=== PATIENT | male | born 1945 | race Caucasian/White ===

== ENCOUNTER → 2017-06-20 09:19 | Outpatient (CLI) | payer MEDICARE, SELFPAY ==
[2017-06-20 11:11] LABS: ALB/GLOB Ratio 0.9 RATIO (0.9-2.4); AST(SGOT) 24 U/L (15-37); Alanine Aminotransfer ALT/SGPT 40 U/L (16-61); Albumin, Serum 3.6 g/dL (3.2-5.0); Alkaline Phosphatase 112 U/L (45-117); Anion Gap 8 (5-15); BUN 28 mg/dL (7-18); BUN/Creat Ratio 20.3 RATIO (10-20); Calcium,Total 10.7 mg/dL (8.5-10.1); Chloride 103 mmol/L (98-107); Cholesterol 156 mg/dL (200); Creatinine, Serum 1.38 mg/dL (0.70-1.30); EST Glomerular Filtration Rate 54 mL/min (>60); Est Glom Filt Rate - Afr Amer 66 mL/min (>60); Glucose 99 mg/dL (74-106); High Density Lipoprotein 43 mg/dL; PSA,Total - Annual Screen 4.56 ng/mL (0.00-4.00); Potassium 3.9 mmol/L (3.5-5.1); Protein, Total 7.6 g/dL (6.4-8.2); Sodium Level 140 mmol/L (136-145); Triglycerides 172 mg/dL; Very Low Density Lipoprotein 34 mg/dL (5-40)
== END ==
PROVIDERS: Family Provider Family Medicine; PCP Family Medicine; Visit Provider Family Medicine
DX: E78.00 Pure hypercholesterolemia, unspecified (principal); F52.21 Male erectile disorder; Z12.5 Encounter for screening for malignant neoplasm of prostate
CPT/HCPCS: 36415; 80053; 80061; 84153; G0103

== ENCOUNTER → 2017-12-21 08:25 | Outpatient (CLI) | payer MEDICARE, SELFPAY ==
[2017-12-21 10:50] LABS: Hematocrit 46.9 % (40-54); Hemoglobin 16.2 g/dl (13.0-16.5); Mean Corp Hgb Conc 34.5 g/gl (32-36); Mean Corpuscular Volume 89.8 fL (80-94); Mean Platelet Vol. 9.8 fl (6.2-12.0); Platelet Count 172 K/mm3 (150-450); RBC Distribution Width SD 42.6 fl (35.1-43.9); Red Blood Count 5.22 M/mm3 (4.6-6.2); White Blood Count 5.6 K/mm3 (4.4-11.0)
[2017-12-21 10:52] LABS: Scan Indicated on CBC? Y/N NO
[2017-12-21 11:16] LABS: AST(SGOT) 24 U/L (15-37); Alanine Aminotransfer ALT/SGPT 41 U/L (16-61); Albumin, Serum 3.7 g/dL (3.2-5.0); Alkaline Phosphatase 92 U/L (45-117); Anion Gap 9 (5-15); BUN 23 mg/dL (7-18); Calcium,Total 10.8 mg/dL (8.5-10.1); Chloride 105 mmol/L (98-107); Cholesterol 152 mg/dL (200); Creatinine, Serum 1.44 mg/dL (0.70-1.30); EST Glomerular Filtration Rate 52 mL/min (>60); Est Glom Filt Rate - Afr Amer 62 mL/min (>60); Globulin 3.6 g/dL (2.2-4.2); Glucose 97 mg/dL (74-106); High Density Lipoprotein 41 mg/dL; PSA,Total- Diagnostic 3.22 ng/mL (0.0-4.0); Potassium 4.1 mmol/L (3.5-5.1); Protein, Total 7.3 g/dL (6.4-8.2); Sodium Level 141 mmol/L (136-145); Triglycerides 183 mg/dL; Very Low Density Lipoprotein 37 mg/dL (5-40)
== END ==
PROVIDERS: Family Provider Family Medicine; PCP Family Medicine; Visit Provider Family Medicine
DX: I10 Essential (primary) hypertension (principal); I86.1 Scrotal varices; E78.00 Pure hypercholesterolemia, unspecified; R97.20 Elevated prostate specific antigen [PSA]
CPT/HCPCS: 36415; 80053; 80061; 84153; 85027

== ENCOUNTER → 2018-06-24 | Outpatient (CLI) | payer MEDICARE, SELFPAY ==
[2018-06-24 10:34] LABS: AST(SGOT) 26 U/L (15-37); Alanine Aminotransfer ALT/SGPT 42 U/L (16-61); Albumin, Serum 3.7 g/dL (3.2-5.0); Alkaline Phosphatase 100 U/L (45-117); Anion Gap 7 (5-15); BUN 25 mg/dL (7-18); BUN/Creat Ratio 16.8 RATIO (10-20); Calcium,Total 10.1 mg/dL (8.5-10.1); Chloride 111 mmol/L (98-107); Cholesterol 149 mg/dL (200); Creatinine, Serum 1.49 mg/dL (0.70-1.30); EST Glomerular Filtration Rate 50 mL/min (>60); Est Glom Filt Rate - Afr Amer 60 mL/min (>60); Globulin 3.6 g/dL (2.2-4.2); Glucose 104 mg/dL (74-106); High Density Lipoprotein 40 mg/dL; PSA,Total - Annual Screen 2.83 ng/mL (0.00-4.00); Potassium 3.9 mmol/L (3.5-5.1); Protein, Total 7.3 g/dL (6.4-8.2); Sodium Level 144 mmol/L (136-145); Triglycerides 167 mg/dL; Very Low Density Lipoprotein 33 mg/dL (5-40)
== END | disposition home or self-care (01) ==
PROVIDERS: Family Provider Family Medicine; PCP Family Medicine; Visit Provider Family Medicine
DX: I10 Essential (primary) hypertension (principal); R97.20 Elevated prostate specific antigen [PSA]; E78.00 Pure hypercholesterolemia, unspecified
CPT/HCPCS: 36415; 80053; 80061; 84153; G0103

== ENCOUNTER → 2018-09-18 | Outpatient (CLI) | payer MEDICARE, SELFPAY ==
[2018-09-18 10:15] LABS: Cholesterol 201 mg/dL (200); High Density Lipoprotein 39 mg/dL; Triglycerides 178 mg/dL; Very Low Density Lipoprotein 36 mg/dL (5-40)
== END | disposition home or self-care (01) ==
LOC: MFPLAB 09:12
PROVIDERS: Family Provider Family Medicine; PCP Family Medicine; Referring Provider Family Medicine; Visit Provider Family Medicine
DX: E78.00 Pure hypercholesterolemia, unspecified (principal)
CPT/HCPCS: 36415; 80061

== ENCOUNTER → 2018-12-20 09:41 | Outpatient (CLI) | payer MEDICARE, SELFPAY ==
--- NOTE | 2018-12-20 09:46 | RAD_ITS ---
STUDY: X-RAY - RIGHT HAND, ATTENTION FIFTH FINGER REASON FOR EXAM: Male, 73 years old. INJURY WHILE WRESTLING LAST NIGHT, PAIN FIFTH DIGIT TECHNIQUE: 3 view(s) of the fifth finger were obtained. COMPARISON: None. FINDINGS: Normal metacarpal head. Normal metacarpophalangeal joint. Normal proximal phalanx. There is a longitudinal fracture along the palmar base of the middle phalanx without significant displacement, extending to the articular surface. Normal distal phalanx. There is mild degenerative arthrosis of the proximal interphalangeal joint. There is mild degenerative arthrosis of the distal interphalangeal joint. There is soft tissue swelling. RAD/Finger(s) Min 2 Views IMPRESSION: Hyperextension avulsion fracture of the fifth middle phalanx. No significant displacement. Electronically Signed: Flaco Bertrand MD (Brooks) at 16:02 EDT , Service support ,
== END ==
PROVIDERS: Family Provider Family Medicine; PCP Family Medicine; Referring Provider Family Medicine; Visit Provider Family Medicine
DX: S62.606A Fracture of unspecified phalanx of right little finger, initial encounter for closed fracture (principal)
CPT/HCPCS: 73140

== ENCOUNTER → 2018-12-24 09:37 | Outpatient (CLI) | payer MEDICARE, SELFPAY ==
[2018-12-24 09:39] LABS: Mucous, Urine 0 SEEN /hpf (<or=2+); Red Blood Cells-Urine 0 SEEN /hpf (0-5)
[2018-12-24 12:05] LABS: Color, Urine Yellow (Yellow); Glucose, Dipstick Normal (Normal); Ketone-Dipstick Negative (Negative); Leukocyte Esterase-Dipstick 25 /ul (Negative); Nitrite-Dipstick Negative (Negative); Occult Blood-Urine Negative /ul (Negative); Protein-Dipstick 15 mg/dl (Negative); Urine Bilirubin Dipstick Negative (Negative); Urine Clarity Sl. Cloudy (Clear); Urine Urobilinogen Normal (Normal)
[2018-12-24 12:15] LABS: Protein, Urine (Random) 19.2 mg/dL (<11.9); Protein:Creat Ratio 132 mg/g CRE (0-200)
[2018-12-24 12:21] LABS: Hematocrit 50.2 % (40-54); Hemoglobin 16.2 g/dL (13.0-16.5); Mean Corp Hgb Conc 32.3 g/dL (32-36); Mean Corpuscular Hgb 29.7 pg (27.0-32.0); Mean Corpuscular Volume 92.1 fL (80-94); Mean Platelet Vol. 9.5 fl (6.2-12.0); Platelet Count 172 K/mm3 (150-450); RBC Distribution Width SD 43.6 fl (35.1-43.9); Red Blood Count 5.45 M/mm3 (4.6-6.2); White Blood Count 6.4 K/mm3 (4.4-11.0)
[2018-12-24 12:23] LABS: Bacteria RARE /hpf (None Seen); Squamous Epithelial Cells - UA 0-5 SEEN /hpf (0-5); White Blood Cells 5-10 SEEN /hpf (0-5)
[2018-12-24 12:57] LABS: ALB/GLOB Ratio 0.9 RATIO (0.9-2.4); AST(SGOT) 23 U/L (15-37); Alanine Aminotransfer ALT/SGPT 43 U/L (16-61); Albumin, Serum 3.7 g/dL (3.2-5.0); Alkaline Phosphatase 110 U/L (45-117); Anion Gap 3 (5-15); BUN 27 mg/dL (7-18); BUN/Creat Ratio 17.8 RATIO (10-20); Calcium,Total 11.2 mg/dL (8.5-10.1); Chloride 109 mmol/L (98-107); Cholesterol 195 mg/dL (200); Creatinine, Serum 1.52 mg/dL (0.70-1.30); EST Glomerular Filtration Rate 48 mL/min (>60); Est Glom Filt Rate - Afr Amer 58 mL/min (>60); Globulin 3.9 g/dL (2.2-4.2); Glucose 103 mg/dL (74-106); High Density Lipoprotein 35 mg/dL; Potassium 4.2 mmol/L (3.5-5.1); Protein, Total 7.6 g/dL (6.4-8.2); Sodium Level 139 mmol/L (136-145); Thyroid Stim Hormone (TSH) 1.49 uIU/mL (0.358-3.74); Triglycerides 208 mg/dL; Very Low Density Lipoprotein 42 mg/dL (5-40)
[2018-12-24 13:12] LABS: PTHIN 328.3 pg/mL (18.4-80.1)
== END ==
PROVIDERS: Family Provider Family Medicine; PCP Family Medicine; Referring Provider Family Medicine; Visit Provider Family Medicine
DX: I12.9 Hypertensive chronic kidney disease with stage 1 through stage 4 chronic kidney disease, or unspecified chronic kidney disease (principal); N18.3 Chronic kidney disease, stage 3 (moderate); E78.00 Pure hypercholesterolemia, unspecified
CPT/HCPCS: 36415; 80053; 80061; 81001; 82570; 83970; 84156; 84443; 85027

== ENCOUNTER → 2018-12-26 10:20 | Outpatient (CLI) | payer MEDICARE, SELFPAY ==
[2018-12-26 12:45] LABS: Vitamin D,25 Hydroxy 17.6 ng/mL (29.95-100.01)
[2018-12-26 12:52] LABS: Hemoglobin A1c 5.3 % (4.2-6.3)
[2018-12-26 12:54] LABS: T4 Free Direct 1.12 ng/dL (0.76-1.46)
[2018-12-31 12:06] LABS: Uric Acid 8.9 mg/dL (3.5-7.2)
== END ==
PROVIDERS: Family Provider Family Medicine; PCP Family Medicine; Referring Provider Family Medicine; Visit Provider Family Medicine
DX: R73.09 Other abnormal glucose (principal); E83.52 Hypercalcemia; E04.1 Nontoxic single thyroid nodule
CPT/HCPCS: 36415; 82306; 82330; 83036; 84439; 84550

== ENCOUNTER → 2018-12-31 09:05 | Outpatient (CLI) | payer MEDICARE, SELFPAY ==
--- NOTE | 2018-12-31 09:10 | RAD_ITS ---
STUDY: X-RAY - LEFT FOOT CLINICAL: Male, 73 years old. Foot pain, redness, swelling TECHNIQUE: 3 view(s) of the foot. COMPARISON: None. FINDINGS: Normal talus, calcaneus, and tarsal bones. Normal visualized subtalar, talonavicular, calcaneocuboid, tarsal and tarsometatarsal articulations. Normal metatarsi. Normal metatarsophalangeal joint of the great toe. Normal tibial and fibular sesamoid bones. Normal interphalangeal joint of the great toe. Normal phalanges of the great toe. Normal second through fifth metatarsophalangeal joints. Normal interphalangeal joints and phalanges of the lesser toes. The soft tissue structures are unremarkable. RAD/Foot min 3 Views IMPRESSION: Normal x-ray examination of the foot. Electronically Signed: Shimon Taveras MD at 9:45 EDT Tel , Service support ,
--- NOTE | 2018-12-31 09:10 | RAD_ITS ---
STUDY: X-RAY - RIGHT HAND, ATTENTION FIFTH FINGER REASON FOR EXAM: Male, 73 years old. Injury 2 weeks ago. Continued finger pain. TECHNIQUE: 3 view(s) of the finger were obtained. COMPARISON: None. FINDINGS: Generalized osteopenia. Normal metacarpal head. Mild arthrosis of the MCP joint. Normal proximal phalanx. Normal middle phalanx. Normal distal phalanx. Mild arthrosis of DIP joints. RAD/Finger(s) Min 2 Views IMPRESSION: Osteopenia with osteoarthritic changes. No acute osseous abnormality. Electronically Signed: Gilles Frances MD at 16:53 EDT , Service support ,
== END ==
PROVIDERS: Family Provider Family Medicine; PCP Family Medicine; Referring Provider Family Medicine; Visit Provider Family Medicine
DX: S69.90XA Unspecified injury of unspecified wrist, hand and finger(s), initial encounter (principal); M79.672 Pain in left foot
CPT/HCPCS: 73140; 73630

== ENCOUNTER → 2019-01-07 14:00 | Outpatient (CLI) | payer MEDICARE, SELFPAY ==
--- NOTE | 2019-01-07 14:14 | US_ITS ---
STUDY: THYROID ULTRASOUND REASON FOR EXAM: Male, 73 years old. Nodule TECHNIQUE: Ultrasound evaluation of the thyroid was performed with real-time and static saenz-scale imaging. COMPARISON: None. FINDINGS: RIGHT LOBE: The right lobe of the thyroid gland measures 4.7 x 2.0 x 1.2 cm. There is a homogeneous echotexture. There is a complex cyst of the midpole measuring 1.0 x 0.9 x 0.7 cm. There is a solid mid pole hypoechoic nodule with minimal peripheral vascularity measuring 0.5 x 0.5 x 0.4 cm. Right thyroid lobe vascularity is within normal limits. LEFT LOBE: The left lobe of the thyroid gland measures 4.6 x 1.7 x 1.6 cm. There is a homogeneous echotexture. There is a solid slightly hypoechoic midpole nodule measuring 0.4 x 0.4 x 0.3 cm. There is a midpole cyst measuring 0.4 x 0.5 x 0.3 cm. There is a mid pole complex cyst measuring 1.0 x 0.8 x 0.4 cm. There is a mid pole colloid cyst measuring 0.4 x 0.4 x 0.3 cm. Left lower lobe vascularity is within normal limits. ISTHMUS: The isthmus measures 3 mm . The regional lymph nodes are normal. US/Thyroid IMPRESSION: Bilateral thyroidal cysts and nodules as detailed above. Follow-up thyroid ultrasound in one year is recommended to assess for stability. Electronically Signed: Ammon Hale MD at 23:24 EDT , Service support ,
== END ==
PROVIDERS: Family Provider Family Medicine; PCP Family Medicine; Referring Provider Family Medicine; Visit Provider Family Medicine
DX: E04.1 Nontoxic single thyroid nodule (principal)
CPT/HCPCS: 76536

== ENCOUNTER → 2019-01-14 | Outpatient (CLI) | payer MEDICARE, SELFPAY ==
--- NOTE | 2019-01-14 08:37 | NM_ITS ---
CLINICAL: 73-year-old male with reported history of clinical hyperparathyroidism. 99m Tc SESTAMIBI DUAL PHASE PARATHYROID SCINTIGRAPHY COMPARISON: Thyroid ultrasound report 01/07/2019 FINDINGS: Following the intravenous administration of 26.5 mCi of 99m Tc sestamibi, image acquisitions of the anterior neck at 20 minutes and 2.0 hours post radiopharmaceutical provision reveal: 1. Immediate static blood pool acquisitions demonstrate distribution of the radiopharmaceutical in the right-left thyroid colloid of a vaguely U-shaped thyroid gland. An additional focus of tracer uptake is noted in the region of the superior mediastinum to the left midline. 2. Delayed images depict persistent tracer concentration noted in the region of the left superior mediastinum with near complete washout of the radiopharmaceutical from the previously defined right-left thyroid beds. NM/Parathyroid Scan IMPRESSION: 1. The persistent increase in radiopharmaceutical concentration identified in the superior mediastinum to left midline, on initial and late projections likely represents visualization of a parathyroid adenoma. Electronically Signed: Shimon Myles DO at 22:41 EDT Tel , Service support ,
== END | disposition home or self-care (01) ==
LOC: NM 08:33
PROVIDERS: Family Provider Family Medicine; PCP Family Medicine; Referring Provider Family Medicine; Visit Provider Family Medicine
DX: E21.3 Hyperparathyroidism, unspecified (principal)
CPT/HCPCS: 78070; A9500

== ENCOUNTER 2019-02-05 10:51 | Outpatient (RCR) | payer MEDICARE, SELFPAY | END 2019-02-15 23:59 | LOC: NS 10:51 | PROVIDERS: Family Provider Family Medicine; PCP Family Medicine; Visit Provider Family Medicine | DX: Z71.3 Dietary counseling and surveillance (principal); N18.9 Chronic kidney disease, unspecified | CPT/HCPCS: 97802 ==

== ENCOUNTER → 2019-02-06 09:16 | Outpatient (CLI) | payer MEDICARE, SELFPAY ==
[2019-02-06 10:52] LABS: Anion Gap 8 (5-15); BUN 24 mg/dL (7-18); BUN/Creat Ratio 19.4 RATIO (10-20); Chloride 108 mmol/L (98-107); Creatinine, Serum 1.24 mg/dL (0.70-1.30); EST Glomerular Filtration Rate 61 mL/min (>60); Est Glom Filt Rate - Afr Amer 74 mL/min (>60); Glucose 81 mg/dL (74-106); Sodium Level 142 mmol/L (136-145)
== END ==
PROVIDERS: Family Provider Family Medicine; PCP Family Medicine; Referring Provider Family Medicine; Visit Provider Family Medicine
DX: I10 Essential (primary) hypertension (principal)
CPT/HCPCS: 36415; 80048

== ENCOUNTER → 2019-02-14 10:20 | Outpatient (CLI) | payer MEDICARE, SELFPAY ==
[2019-02-14 12:28] LABS: Anion Gap 6 (5-15); BUN 21 mg/dL (7-18); BUN/Creat Ratio 14.5 RATIO (10-20); Calcium,Total 10.8 mg/dL (8.5-10.1); Chloride 109 mmol/L (98-107); Creatinine, Serum 1.45 mg/dL (0.70-1.30); EST Glomerular Filtration Rate 51 mL/min (>60); Est Glom Filt Rate - Afr Amer 62 mL/min (>60); Glucose 103 mg/dL (74-106); Potassium 4.2 mmol/L (3.5-5.1); Sodium Level 140 mmol/L (136-145)
== END ==
PROVIDERS: Family Provider Family Medicine; PCP Family Medicine; Referring Provider Family Medicine; Visit Provider Family Medicine
DX: I10 Essential (primary) hypertension (principal)
CPT/HCPCS: 36415; 80048

== ENCOUNTER 2019-02-27 15:41 | Outpatient (RCR) | payer MEDICARE, SELFPAY | END 2019-03-18 23:59 | LOC: NS 15:41 | PROVIDERS: Family Provider Family Medicine; PCP Family Medicine; Visit Provider Family Medicine | DX: Z71.3 Dietary counseling and surveillance (principal); N18.3 Chronic kidney disease, stage 3 (moderate) | CPT/HCPCS: 97803 ==

== ENCOUNTER 2019-04-02 08:59 | Outpatient (RCR) | payer MEDICARE, SELFPAY | END 2019-04-02 23:59 | disposition home or self-care (01) | LOC: NS 08:59 | PROVIDERS: Family Provider Family Medicine; PCP Family Medicine; Visit Provider Family Medicine | DX: Z71.3 Dietary counseling and surveillance (principal); N18.3 Chronic kidney disease, stage 3 (moderate) | CPT/HCPCS: 97803 ==

== ENCOUNTER → 2019-05-09 11:52 | Outpatient (CLI) | payer MEDICARE, SELFPAY ==
[2019-05-09 14:50] LABS: PTHIN 370.1 pg/mL (18.4-80.1)
== END ==
PROVIDERS: PCP Family Medicine; Referring Provider Family Medicine; Visit Provider Family Medicine
DX: D35.1 Benign neoplasm of parathyroid gland (principal)
CPT/HCPCS: 36415; 83970

== ENCOUNTER → 2019-05-23 09:27 | Outpatient (CLI) | payer MEDICARE, SELFPAY ==
[2019-05-23 12:53] LABS: Anion Gap 8 (5-15); BUN 19 mg/dL (7-18); Calcium,Total 9.1 mg/dL (8.5-10.1); Chloride 106 mmol/L (98-107); Creatinine, Serum 1.58 mg/dL (0.70-1.30); EST Glomerular Filtration Rate 46 mL/min (>60); Est Glom Filt Rate - Afr Amer 56 mL/min (>60); Glucose 94 mg/dL (74-106); Potassium 3.5 mmol/L (3.5-5.1); Sodium Level 142 mmol/L (136-145)
== END ==
PROVIDERS: PCP Family Medicine; Referring Provider Family Medicine; Visit Provider Family Medicine
DX: N18.3 Chronic kidney disease, stage 3 (moderate) (principal)
CPT/HCPCS: 36415; 80048

== ENCOUNTER → 2019-05-23 10:10 | Outpatient (CLI) | payer MEDICARE, SELFPAY ==
--- NOTE | 2019-05-23 10:13 | VDLE_ITS ---
Reason For Study: EDEMA RIGHT LEFT GSV is normal. GSV is normal. CFV is compressible, spontaneous, phasic, CFV is compressible, spontaneous, phasic, competent and demonstrates normal competent, and demonstrates normal augmentation. augmentation. FV is compressible, spontaneous, phasic, FV is compressible, spontaneous, phasic, competent and demonstrates normal competent and demonstrates normal augmentation. augmentation. POP V is compressible, spontaneous, phasic, POP V is compressible, spontaneous, phasic, competent and demonstrates normal competent and demonstrates normal augmentation. augmentation. T/P Trunk is compressible. T/P Trunk is compressible. PTV is compressible. PTV is compressible. RT PerV is compressible. LT PerV is compressible. Procedure Exam performed in department. A preliminary report was called and/or faxed to DR MURILLO. Interpretation Summary Deep veins of the lower extremities are bilaterally patent and compressible segmentally. There is no evidence of deep vein thrombosis on either side. Valvular competence appears intact within the proximal deep venous systems bilaterally. The great saphenous veins appear bilaterally patent and compressible segmentally. Ordering Physician: Delgado Murillo Referring Physician: Delgado Murillo Performed By: Angélica Lau, NII, RVT
== END ==
PROVIDERS: PCP Family Medicine; Referring Provider Family Medicine; Visit Provider Family Medicine
DX: R60.0 Localized edema (principal)
CPT/HCPCS: 93970

== ENCOUNTER 2019-05-27 10:04 | Inpatient (IN) | payer MEDICARE, SELFPAY ==
[2019-05-27 09:56] VITALS: BP 130/75; PULSE 89; RESP 18; TEMP 37.5; O2SAT 98
[2019-05-27 10:06] VITALS: BMI 27.3
[2019-05-27 10:07] VITALS: BMI 37.4
--- NOTE | 2019-05-27 10:08 | CT_ITS ---
STUDY: CT ABDOMEN AND PELVIS WITHOUT CONTRAST REASON FOR EXAM: Male, 73 years old. HEMATURIA RADIATION DOSAGE (If Supplied By Facility): CTDIvol = ( 10.99 ) mGy, DLP = ( 604.01 ) mGycm TECHNIQUE: Transaxial images were obtained from the dome of the diaphragm to the symphysis pubis without oral contrast, and without intravenous contrast. Sagittal and coronal images were reconstructed. Individualized dose optimization techniques were used for this CT. COMPARISON: None. FINDINGS: Lung bases are clear. Heart size is normal. The liver is unremarkable. The gallbladder is moderately distended with a solitary stone. Common duct is not dilated. The spleen and pancreas are unremarkable. The adrenal glands are normal. Low-attenuation lesions in the kidneys measure up to 3.9 cm in diameter. These are not characterized without contrast. Small parenchymal calcification in the left kidney may represent a peripherally calcified cyst. No stones in the collecting system. No hydronephrosis. Ureters are normal in course and caliber. No ureteral stones. The aorta is normal in caliber. There is no free fluid, free air, or organized collection. No bowel obstruction or inflammatory change. Diverticulosis. No acute diverticulitis. There has been prior sigmoid colon anastomosis. Prostate gland measures 5.4 x 5.8 x 5.3 cm. There is mild inflammatory stranding surrounding the bladder and prostate gland. Urinary bladder is moderately distended and otherwise unremarkable. Normal abdominal wall. Normal osseous structures. CT/Abdomen/Pelvis without Cont IMPRESSION: 1. Inflammatory stranding surrounding the bladder and prostate gland. Consider cystitis/prostatitis. 2. No hydronephrosis or obstructive uropathy. 3. Cholelithiasis. 4. Renal hypodensities, not characterized without contrast. 5. Prostatic enlargement. Electronically Signed: Fiona Lomas MD at 16:46 EDT Tel , Service support ,
--- NOTE | 2019-05-27 10:22 | PCM.HP.STD ---
History of Present Illness The patient is a 73 year old M [] Past Medical History Smoking Status: Never smoker - Physical Exam Vitals/I&O's: Vital Signs Temp Pulse Resp BP Pulse Ox 99.5 F H 89 18 130/75 H 98 05/27/19 09:56 05/27/19 09:56 05/27/19 09:56 05/27/19 09:56 05/27/19 09:56 Oxygen Delivery Method Room Air Weight: 190 lb 14.725 oz Body Mass Index (BMI) 27.3 Current Medications Sodium Chloride () 10 - 40 ml IV UD PRN PRN Reason: SALINE FLUSH
--- NOTE | 2019-05-27 10:23 | PN_ITS ---
Subjective: Patient is a 73-year-old male with past medical history which includes hypertension. Patient was admitted from his urologists office on 05/27/2019 due to suspicion for UTI. Patient had parathyroid surgery at outside hospital about a week ago and states that since postop course was complicated by urinary retention. He was therefore discharged home with a Davila catheter in place. He went to see Dr. Blevins 1 day prior to admission and Davila catheter was removed. Patient states he noted that he was having difficulty with urination as well as passing some bloody urine the day before presentation so he went to see his urologist on the day of presentation. On arrival in his urologist office, he was found to be febrile and so was admitted due to suspicion for UTI and possible sepsis. He was therefore directly admitted to the hospital. He admitted to fever and chills but denied any nausea vomiting, cough or shortness of breath, chest pain, abdominal pain, diarrhea vomiting. Review of symptoms otherwise negative. He also denied any flank pain. On admission, toes were significant for temperature of 99.5 Fahrenheit with blood pressure of 130/75 and pulse rate of 89 as well as respiratory rate of 18. Chemistry showed creatinine of 1.41 and CBC showed WBC of 13.4. Hospitalist service was consulted to help with medical management. Vitals/I&O's: Vital Signs Temp Pulse Resp BP Pulse Ox 99.5 F H 89 18 130/75 H 98 05/27/19 09:56 05/27/19 09:56 05/27/19 09:56 05/27/19 09:56 05/27/19 09:56 Oxygen Delivery Method Room Air Weight: 190 lb 14.725 oz Body Mass Index (BMI) 27.3 General: Alert, Oriented x3, Cooperative, No apparent distress HEENT: Atraumatic, PERRLA, EOMI, Normocephalic Oral: Dry Mucosa Neck: Supple, No JVD, Negative Carotid Bruits Lungs: Clear to auscultation, Normal air movement, No rhonchi, No wheeze, No rales Cardiovascular: Regular rate, Regular Rhythm, Normal S1, Normal S2, No murmurs Abdomen: Bowel Sounds Present, Soft, Non Tender, Non-Distended, No Hepato- splenomegaly Extremities: No clubbing, No cyanosis, No edema, Capillary Refill Less than 3 Seconds Skin: No rashes, No breakdown Musculoskeletal: No Tenderness to Palpation of Joints or Extremities Lymphatic: No Cervical, Supraclavicular, or Inguinal Adenopathy Neurological: Cranial nerves II-XII grossly intact, Neuro grossly intact, Motor Exam 5/5 strength throughout Psych/Mental Status: Normal Affect, Appropriate, Alert and oriented to time, place, person, mood and affect Laboratory Tests 05/27/19 05/27/19 05/27/19 Range/Units 11:50 10:35 10:35 WBC (4.4-11.0) K/mm3 RBC (4.6-6.2) M/mm3 Hgb (13.0-16.5) g/dL Hct (40-54) % MCV (80-94) fL MCH (27.0-32.0) pg MCHC (32-36) g/dL RDW Std Deviation (35.1-43.9) fl RDW Coeff of Kavya (11.6-14.6) % Plt Count (150-450) K/mm3 MPV (6.2-12.0) fl Immature Gran % (Auto) (0.0-0.9) % Neut % (Auto) (47-70) % Lymph % (Auto) (19-41) % [place] % (Auto) (0-10) % Eos % (Auto) (0-5) % Baso % (Auto) (0-1) % Absolute Neuts (auto) (2.0-7.7) X10^3/uL Absolute Lymphs (auto) (0.83-4.51) X10^3/uL Nucleated RBC % (0-5) % Differential Comment Sodium 141 (136-145) mmol/L Potassium 4.0 (3.5-5.1) mmol/L Chloride 109 H (98-107) mmol/L Carbon Dioxide 27.0 (21.0-32.0) mmol/L Anion Gap 5 (5-15) BUN 18 (7-18) mg/dL Creatinine 1.41 H (0.70-1.30) mg/dL Estim Creat Clear Calc 49.62 ml/min Est GFR (MDRD) Af Amer 64 (>60) mL/min Est GFR (MDRD) Non-Af 53 L (>60) mL/min BUN/Creatinine Ratio 12.8 (10-20) RATIO Glucose 98 (74-106) mg/dL Lactic Acid 1.1 (0.4-1.9) mmol/L Calcium 8.5 (8.5-10.1) mg/dL Total Bilirubin 0.70 (0.20-1.00) mg/dL AST 15 (15-37) U/L ALT 17 (16-61) U/L Alkaline Phosphatase 122 H (45-117) U/L Total Protein 7.1 (6.4-8.2) g/dL Albumin 3.4 (3.2-5.0) g/dL Globulin 3.7 (2.2-4.2) g/dL Albumin/Globulin Ratio 0.9 (0.9-2.4) RATIO Urine Color Yellow (Yellow) Urine Clarity Clear (Clear) Urine pH 8.0 (5.0 - 8.0) Ur Specific [place] 1.015 (1.002-1.030) Urine Protein 30 H (Negative) mg/dl Urine Glucose (UA) Normal (Normal) mg/dl Urine Ketones Negative (Negative) mg/dl Urine Occult Blood 250 H (Negative) /ul Urine Nitrite Negative (Negative) Urine Bilirubin Negative (Negative) mg/dL Urine Urobilinogen Normal (Normal) mg/dl Ur Leukocyte Esterase 500 H (Negative) /ul Urine RBC 10-25 SEEN (0-5) /hpf Urine WBC 5-10 SEEN (0-5) /hpf Ur Squamous Epith Cells 0-5 SEEN (0-5) /hpf Urine Bacteria RARE (None Seen) /hpf Urine Mucus 0 SEEN (<or=2+) /hpf 05/27/19 Range/Units 10:35 WBC 13.4 H (4.4-11.0) K/mm3 RBC 4.60 (4.6-6.2) M/mm3 Hgb 13.9 (13.0-16.5) g/dL Hct 41.5 (40-54) % MCV 90.2 (80-94) fL MCH 30.2 (27.0-32.0) pg MCHC 33.5 (32-36) g/dL RDW Std Deviation 42.1 (35.1-43.9) fl RDW Coeff of Kavya 12.8 (11.6-14.6) % Plt Count 153 (150-450) K/mm3 MPV 9.3 (6.2-12.0) fl Immature Gran % (Auto) 1.200 H (0.0-0.9) % Neut % (Auto) 86.5 H (47-70) % Lymph % (Auto) 4.1 L (19-41) % [place] % (Auto) 7.5 (0-10) % Eos % (Auto) 0.4 (0-5) % Baso % (Auto) 0.3 (0-1) % Absolute Neuts (auto) 11.6 H (2.0-7.7) X10^3/uL Absolute Lymphs (auto) 0.55 L (0.83-4.51) X10^3/uL Nucleated RBC % 0 (0-5) % Differential Comment SCANNED Sodium (136-145) mmol/L Potassium (3.5-5.1) mmol/L Chloride (98-107) mmol/L Carbon Dioxide (21.0-32.0) mmol/L Anion Gap (5-15) BUN (7-18) mg/dL Creatinine (0.70-1.30) mg/dL Estim Creat Clear Calc ml/min Est GFR (MDRD) Af Amer (>60) mL/min Est GFR (MDRD) Non-Af (>60) mL/min BUN/Creatinine Ratio (10-20) RATIO Glucose (74-106) mg/dL Lactic Acid (0.4-1.9) mmol/L Calcium (8.5-10.1) mg/dL Total Bilirubin (0.20-1.00) mg/dL AST (15-37) U/L ALT (16-61) U/L Alkaline Phosphatase (45-117) U/L Total Protein (6.4-8.2) g/dL Albumin (3.2-5.0) g/dL Globulin (2.2-4.2) g/dL Albumin/Globulin Ratio (0.9-2.4) RATIO Urine Color (Yellow) Urine Clarity (Clear) Urine pH (5.0 - 8.0) Ur Specific [place] (1.002-1.030) Urine Protein (Negative) mg/dl Urine Glucose (UA) (Normal) mg/dl Urine Ketones (Negative) mg/dl Urine Occult Blood (Negative) /ul Urine Nitrite (Negative) Urine Bilirubin (Negative) mg/dL Urine Urobilinogen (Normal) mg/dl Ur Leukocyte Esterase (Negative) /ul Urine RBC (0-5) /hpf Urine WBC (0-5) /hpf Ur Squamous Epith Cells (0-5) /hpf Urine Bacteria (None Seen) /hpf Urine Mucus (<or=2+) /hpf Current Medications Sodium Chloride () 10 - 40 ml IV UD PRN PRN Reason: SALINE FLUSH STROKE Vital Signs/Narrative: Vital Signs Temp Pulse Resp BP Pulse Ox 05/27/19 09:56 99.5 F H 89 18 130/75 H 98 Medical Necessity - Tobacco Use Smoking Status: Never smoker Assessment/Plan 73 y/o admitted with a complaitn of fever and chills. 1. Sepsis due to UTI * WBC is elevated at 13.4. Patient's temperature was initially high but trended up to 100.3 Fahrenheit with respiratory rate of 22. Lactic acid is only 1.9. SIRS criteria is therefore 2/4-tachypnea and leukocytosis. * Patient admitted to [facility] by his primary team. * Started on IV ceftriaxone. * Blood cultures and urine cultures obtained. * Treated with IV fluid normal saline at 150 cc/h. * CT abdomen and pelvis done: Reading pending. * 2. CKD stage III: * Creatinine is 1.41. * No baseline in system but patient states that he does have a history of CKD stage III. * Will hydrate gently with IV fluids and trend creatinine. 3. Hypertension: On amlodipine. 4. GERD: On pantoprazole DVT prophylaxis: SCDs CODE STATUS: Full code * Patient counseled extensively about different types of CODE STATUS including full code, DNR CCA and DNR CCA. * Patient elects to be full code. * Total [id number] time 17 minutes. * Thank you for the courtesy of the consults. We will continue to follow with you. Inpatient E&M: 14883 [facility] Hosp L3
[2019-05-27 10:56] LABS: Absolute Lymphocyte Count 0.55 X10^3/uL (0.83-4.51); Absolute Neutrophil Count 11.6 X10^3/uL (2.0-7.7); Basophil# 0.04 X10^3/uL; Basophil% 0.3 % (0-1); Eosinophil# 0.05 X10^3/uL; Eosinophils% 0.4 % (0-5); Hematocrit 41.5 % (40-54); Hemoglobin 13.9 g/dL (13.0-16.5); Lymphocyte # 0.55 X10^3/ul (4.0); Lymphocyte % 4.1 % (19-41); Mean Corp Hgb Conc 33.5 g/dL (32-36); Mean Corpuscular Hgb 30.2 pg (27.0-32.0); Mean Corpuscular Volume 90.2 fL (80-94); Mean Platelet Vol. 9.3 fl (6.2-12.0); Monocyte# 1.01 X10^3/uL; Monocyte% 7.5 % (0-10); NRBC Flagged by Analyzer 0 % (0-5); Neutrophil # 11.57 X10^3/uL (2.7-7.7); Neutrophil % 86.5 % (47-70); POSITIVE DIFFERENTIAL YES; Platelet Count 153 K/mm3 (150-450); RBC Distribution Width CV 12.8 % (11.6-14.6); RBC Distribution Width SD 42.1 fl (35.1-43.9); White Blood Count 13.4 K/mm3 (4.4-11.0)
[2019-05-27 11:00] LABS: Differential Indicated SCAN CRITERIA MET
[2019-05-27 11:16] LABS: Differential Comment SCANNED
[2019-05-27 11:23] LABS: ALB/GLOB Ratio 0.9 RATIO (0.9-2.4); AST(SGOT) 15 U/L (15-37); Alanine Aminotransfer ALT/SGPT 17 U/L (16-61); Albumin, Serum 3.4 g/dL (3.2-5.0); Alkaline Phosphatase 122 U/L (45-117); Anion Gap 5 (5-15); BUN 18 mg/dL (7-18); BUN/Creat Ratio 12.8 RATIO (10-20); Calcium,Total 8.5 mg/dL (8.5-10.1); Chloride 109 mmol/L (98-107); Creatinine, Serum 1.41 mg/dL (0.70-1.30); EST Glomerular Filtration Rate 53 mL/min (>60); Est Glom Filt Rate - Afr Amer 64 mL/min (>60); Estimated Creatinine Clearance 49.62 ml/min; Globulin 3.7 g/dL (2.2-4.2); Glucose 98 mg/dL (74-106); Protein, Total 7.1 g/dL (6.4-8.2); Sodium Level 141 mmol/L (136-145)
[2019-05-27 11:24] LABS: Lactic Acid 1.1 mmol/L (0.4-1.9)
[2019-05-27] MEDS: 0.9% Normal Saline 1,000 ML 125 ML IV ×2 (11:35→20:19)
[2019-05-27] MEDS: Ceftriaxone 1 GM/50 mL Premix Q24 IV ×2 (11:35→22:04)
[2019-05-27 12:00] LABS: Mucous, Urine 0 SEEN /hpf (<or=2+)
[2019-05-27 12:35] LABS: Color, Urine Yellow (Yellow); Glucose, Dipstick Normal (Normal); Ketone-Dipstick Negative (Negative); Leukocyte Esterase-Dipstick 500 /ul (Negative); Nitrite-Dipstick Negative (Negative); Occult Blood-Urine 250 /ul (Negative); Protein-Dipstick 30 mg/dl (Negative); Specific Gravity, Urine 1.015 (1.002-1.030); Urine Bilirubin Dipstick Negative (Negative); Urine Clarity Clear (Clear); Urine Urobilinogen Normal (Normal)
[2019-05-27 12:44] LABS: Bacteria RARE /hpf (None Seen); Red Blood Cells-Urine 10-25 SEEN /hpf (0-5); Squamous Epithelial Cells - UA 0-5 SEEN /hpf (0-5); White Blood Cells 5-10 SEEN /hpf (0-5)
[2019-05-27 13:01] VITALS: BP 118/61; PULSE 89; RESP 22; TEMP 37.9; O2SAT 93
[2019-05-27 15:21] VITALS: BP 125/72; PULSE 83; RESP 20; TEMP 37.6; O2SAT 96
[2019-05-27 20:32] VITALS: BP 134/73; PULSE 82; RESP 18; TEMP 37.5; O2SAT 95
[2019-05-27] MEDS: Tamsulosin HCl 0.4 MG Capsule PO (22:04)
[2019-05-28 02:32] VITALS: BP 119/58; PULSE 93; RESP 18; TEMP 36.8; O2SAT 93
[2019-05-28] MEDS: 0.9% Normal Saline 1,000 ML 150 ML IV ×3 (02:38→16:52)
[2019-05-28 07:59] LABS: Absolute Lymphocyte Count 1.24 X10^3/uL (0.83-4.51); Absolute Neutrophil Count 10.5 X10^3/uL (2.0-7.7); Basophil# 0.02 X10^3/uL; Basophil% 0.2 % (0-1); Eosinophil# 0.04 X10^3/uL; Eosinophils% 0.3 % (0-5); Hematocrit 37.1 % (40-54); Hemoglobin 12.5 g/dL (13.0-16.5); Lymphocyte # 1.24 X10^3/ul (4.0); Lymphocyte % 9.4 % (19-41); Mean Corp Hgb Conc 33.7 g/dL (32-36); Mean Platelet Vol. 9.2 fl (6.2-12.0); Monocyte# 1.33 X10^3/uL; Monocyte% 10.1 % (0-10); NRBC Flagged by Analyzer 0 % (0-5); Neutrophil # 10.47 X10^3/uL (2.7-7.7); Neutrophil % 79.3 % (47-70); Platelet Count 133 K/mm3 (150-450); RBC Distribution Width CV 12.9 % (11.6-14.6); RBC Distribution Width SD 42.4 fl (35.1-43.9); Red Blood Count 4.17 M/mm3 (4.6-6.2); White Blood Count 13.2 K/mm3 (4.4-11.0)
[2019-05-28 08:05] LABS: Anion Gap 4 (5-15); BUN 14 mg/dL (7-18); BUN/Creat Ratio 11.8 RATIO (10-20); Calcium,Total 7.6 mg/dL (8.5-10.1); Chloride 111 mmol/L (98-107); Creatinine, Serum 1.19 mg/dL (0.70-1.30); EST Glomerular Filtration Rate 64 mL/min (>60); Est Glom Filt Rate - Afr Amer 77 mL/min (>60); Estimated Creatinine Clearance 58.79 ml/min; Glucose 96 mg/dL (74-106); Potassium 4.1 mmol/L (3.5-5.1); Sodium Level 141 mmol/L (136-145)
[2019-05-28 09:40] VITALS: BP 133/71; PULSE 86; RESP 16; TEMP 36.6; O2SAT 97
[2019-05-28] MEDS: Ceftriaxone 1 GM/50 mL Premix Q24 IV ×2 (09:56→22:04)
[2019-05-28 09:57] VITALS: PULSE 86
[2019-05-28] MEDS: Pantoprazole Sodium 20 MG Tablet PO (09:57)
[2019-05-28] MEDS: amLODIPine 10 MG Tablet PO (09:57)
[2019-05-28] MEDS: Metoprolol(XL)Succ 100 MG Tablet PO (09:57)
--- NOTE | 2019-05-28 11:09 | PCM.PN.HOSP ---
Subjective: Patient seen and examined. He feels much better today. He has no fever no chills, no nausea vomiting, no chest pain or shortness of breath, no diarrhea vomiting. He has not noticed any more blood in his urine. Review of systems otherwise negative. Temperature is down to 97.9. Only down to 13.2 from 13.4 on admission. Creatinine is down to 1.19. Vitals/I&O's: Vital Signs Temp Pulse Resp BP Pulse Ox 97.9 F 86 16 133/71 H 97 05/28/19 09:40 05/28/19 09:57 05/28/19 09:40 05/28/19 09:40 05/28/19 09:40 Oxygen Delivery Method Room Air Weight: 190 lb 14.725 oz Body Mass Index (BMI) 27.3 Intake and Output for Last 24 Hours 05/26/19 05/27/19 05/28/19 23:59 23:59 23:59 Intake Total 2140.42 / 2140.42 2600 / 2600 Output Total 550 / 550 400 / 400 Balance 1590.42 / 1590.42 2200 / 2200 General: Alert, Oriented x3, Cooperative, No apparent distress HEENT: Atraumatic, PERRLA, EOMI, Normocephalic Oral: Dry Mucosa Neck: Supple, No JVD, Negative Carotid Bruits Lungs: Clear to auscultation, Normal air movement, No rhonchi, No wheeze, No rales Cardiovascular: Regular rate, Regular Rhythm, Normal S1, Normal S2, No murmurs Abdomen: Bowel Sounds Present, Soft, Non Tender, Non-Distended, No Hepato-splenomegaly Extremities: No clubbing, No cyanosis, No edema, Capillary Refill Less than 3 Seconds Skin: No rashes, No breakdown Musculoskeletal: No Tenderness to Palpation of Joints or Extremities Lymphatic: No Cervical, Supraclavicular, or Inguinal Adenopathy Neurological: Cranial nerves II-XII grossly intact, Neuro grossly intact, Motor Exam 5/5 strength throughout Psych/Mental Status: Normal Affect, Appropriate, Alert and oriented to time, place, person, mood and affect Laboratory Results 05/27/19 10:35: Differential Comment SCANNED 05/27/19 10:35: Sodium 141, Potassium 4.0, Chloride 109 H, Carbon Dioxide 27.0, Anion Gap 5, BUN 18, Creatinine 1.41 H, Estim Creat Clear Calc 49.62, Est GFR (MDRD) Af Amer 64, Est GFR (MDRD) Non-Af 53 L, BUN/Creatinine Ratio 12.8, Glucose 98, Calcium 8.5, Total Bilirubin 0.70, AST 15, ALT 17, Alkaline Phosphatase 122 H, Total Protein 7.1, Albumin 3.4, Globulin 3.7, Albumin/Globulin Ratio 0.9 05/27/19 10:35: Lactic Acid 1.1 05/27/19 11:50: Urine Color Yellow, Urine Clarity Clear, Urine pH 8.0, Ur Specific [place] 1.015, Urine Protein 30 H, Urine Glucose (UA) Normal, Urine Ketones Negative, Urine Occult Blood 250 H, Urine Nitrite Negative, Urine Bilirubin Negative, Urine Urobilinogen Normal, Ur Leukocyte Esterase 500 H, Urine RBC 10-25 SEEN, Urine WBC 5-10 SEEN, Ur Squamous Epith Cells 0-5 SEEN, Urine Bacteria RARE, Urine Mucus 0 SEEN 05/28/19 07:40: WBC 13.2 H, RBC 4.17 L, Hgb 12.5 L, Hct 37.1 L, MCV 89.0, MCH 30.0, MCHC 33.7, RDW Std Deviation 42.4, RDW Coeff of Kavya 12.9, Plt Count 133 L, MPV 9.2, Immature Gran % (Auto) 0.700, Neut % (Auto) 79.3 H, Lymph % (Auto) 9.4 L, [place] % (Auto) 10.1 H, Eos % (Auto) 0.3, Baso % (Auto) 0.2, Absolute Neuts (auto) 10.5 H, Absolute Lymphs (auto) 1.24, Nucleated RBC % 0 05/28/19 07:40: Sodium 141, Potassium 4.1, Chloride 111 H, Carbon Dioxide 26.0, Anion Gap 4 L, BUN 14, Creatinine 1.19, Estim Creat Clear Calc 58.79, Est GFR (MDRD) Af Amer 77, Est GFR (MDRD) Non-Af 64, BUN/Creatinine Ratio 11.8, Glucose 96, Calcium 7.6 L Diagnostic Data Abdomen/Pelvis CT 05/27/19 10:08 IMPRESSION: 1. Inflammatory stranding surrounding the bladder and prostate gland. Consider cystitis/prostatitis. 2. No hydronephrosis or obstructive uropathy. 3. Cholelithiasis. 4. Renal hypodensities, not characterized without contrast. 5. Prostatic enlargement. Electronically Signed: Fiona Lomas MD at 16:46 EDT Tel , Service support , Current Medications Amlodipine Besylate (Norvasc) 10 mg PO DAILY [facility] Last Admin: 05/28/19 09:57 Dose: 10 mg Documented by: Ceftriaxone Sodium (Rocephin) 1 gm in 50 mls @ 100 mls/hr IV Q12 [facility] Last Admin: 05/28/19 09:56 Dose: 100 mls/hr Documented by: Sodium Chloride () 1,000 mls @ 150 mls/hr IV .Q6H40M [facility] Last Infusion: 05/28/19 09:57 Dose: 0 mls/hr Documented by: Metoprolol Succinate (Toprol Xl (Beta Mara)) 100 mg PO DAILY [facility] Last Admin: 05/28/19 09:57 Dose: 100 mg Documented by: Pantoprazole Sodium (Protonix) 20 mg PO DAILY [facility] Last Admin: 05/28/19 09:57 Dose: 20 mg Documented by: Sodium Chloride () 10 - 40 ml IV UD PRN PRN Reason: SALINE FLUSH Tamsulosin HCl (Flomax) 0.4 mg PO QHS [facility] Last Admin: 05/27/19 22:04 Dose: 0.4 mg Documented by: STROKE Vital Signs/Narrative: Vital Signs Temp Pulse Resp BP Pulse Ox 05/28/19 09:57 86 05/28/19 09:40 97.9 F 86 16 133/71 H 97 Medical Necessity - Tobacco Use Smoking Status: Never smoker Assessment/Plan 73 y/o admitted with a complaitn of fever and chills. 1. Sepsis due to UTI wbc is down to 13.2 today. on IV ceftriaxone. Fever has settled blood and urine cultures pending CT abdomen and pelvis: inflammatory stranding surrounding bladder and prostate, with no hydronephrosis or obstructive uropathy. continue IV antibiotics 2. RAFAELA creatinine is down to 1.19 from 1.41 on admission. This leads me to think that this was more of an RAFAELA picture, not CKD as patient states he had. Will continue to monitor. 3. Hypertension: On amlodipine. 4. GERD: On pantoprazole DVT prophylaxis: SCDs CODE STATUS: Full code Thank you for the courtesy of the consult. We will continue to follow with you. Inpatient E&M: [id number] Subs Hosp L2
--- NOTE | 2019-05-28 14:01 | CASEMGMT ---
RN CM Assessment Note Presentation: Sepsis due to UTI. Intro role of CM and purpose of RN CM assessment. Demographics, PCP and Pharmacy verified. Pt is awake, alert and able to participate in assessment. Pt denies care needs at home or use of any DME. Plan is to return home on discharge. PCP: Dr. Murillo Specialists: Dr. Blevins Preferred Pharmacy: [facility] Insurance: [employer] Prescription Benefit: yes LNOK : Missy Funez Living Arrangements: Lives independently with . Denies use of ambulatory DME or needing assist with ADL's or IADL's. Transportation: drives DME: none Patient DC goals: Home on dc DC PLAN: Home on discharge with [facility]. No needs identified at this time. RN CM advised to contact cm for any concerns/needs that may arise. Donny CARDOZO RN ACM
[2019-05-28 16:50] VITALS: BP 131/63; PULSE 76; RESP 16; TEMP 36.7; O2SAT 96
[2019-05-28 22:02] VITALS: BP 118/72; PULSE 94; RESP 18; TEMP 37.1; O2SAT 94
[2019-05-28] MEDS: Tamsulosin HCl 0.4 MG Capsule PO (22:10)
[2019-05-29] MEDS: 0.9% Normal Saline 1,000 ML 150 ML IV ×2 (00:57→07:02)
[2019-05-29 03:34] VITALS: BP 128/74; PULSE 70; RESP 16; TEMP 37.1; O2SAT 95
[2019-05-29 07:01] LABS: Absolute Lymphocyte Count 1.32 X10^3/uL (0.83-4.51); Absolute Neutrophil Count 7.4 X10^3/uL (2.0-7.7); Basophil# 0.02 X10^3/uL; Basophil% 0.2 % (0-1); Eosinophil# 0.12 X10^3/uL; Eosinophils% 1.2 % (0-5); Hematocrit 36.9 % (40-54); Lymphocyte # 1.32 X10^3/ul (4.0); Lymphocyte % 13.5 % (19-41); Mean Corp Hgb Conc 32.5 g/dL (32-36); Mean Corpuscular Hgb 29.4 pg (27.0-32.0); Mean Corpuscular Volume 90.4 fL (80-94); Mean Platelet Vol. 9.6 fl (6.2-12.0); Monocyte# 0.81 X10^3/uL; Monocyte% 8.3 % (0-10); NRBC Flagged by Analyzer 0 % (0-5); Neutrophil # 7.44 X10^3/uL (2.7-7.7); Neutrophil % 76.2 % (47-70); Platelet Count 142 K/mm3 (150-450); RBC Distribution Width SD 43.3 fl (35.1-43.9); Red Blood Count 4.08 M/mm3 (4.6-6.2); White Blood Count 9.8 K/mm3 (4.4-11.0)
[2019-05-29 07:26] LABS: Anion Gap 1 (5-15); BUN 9 mg/dL (7-18); Calcium,Total 7.5 mg/dL (8.5-10.1); Chloride 116 mmol/L (98-107); Creatinine, Serum 1.12 mg/dL (0.70-1.30); EST Glomerular Filtration Rate 69 mL/min (>60); Est Glom Filt Rate - Afr Amer 83 mL/min (>60); Estimated Creatinine Clearance 62.46 ml/min; Glucose 98 mg/dL (74-106); Potassium 3.7 mmol/L (3.5-5.1); Sodium Level 143 mmol/L (136-145)
[2019-05-29 10:00] VITALS: BP 132/77; PULSE 68; RESP 16; TEMP 36.7; O2SAT 99
[2019-05-29] MEDS: Ceftriaxone 1 GM/50 mL Premix Q24 IV (10:06)
[2019-05-29 10:07] VITALS: PULSE 68
[2019-05-29] MEDS: Pantoprazole Sodium 20 MG Tablet PO (10:07)
[2019-05-29] MEDS: amLODIPine 10 MG Tablet PO (10:07)
[2019-05-29] MEDS: Metoprolol(XL)Succ 100 MG Tablet PO (10:07)
--- NOTE | 2019-05-29 12:06 | PN_ITS ---
Subjective: Patient seen and examined. He has no complaints. He had an uneventful night and review of symptoms otherwise negative. Labs and vitals reviewed. He has remained hemodynamically stable. Vitals/I&O's: Vital Signs Temp Pulse Resp BP Pulse Ox 98.7 F 68 16 128/74 H 95 05/29/19 03:34 05/29/19 10:07 05/29/19 03:34 05/29/19 03:34 05/29/19 03:34 Oxygen Delivery Method Room Air Weight: 190 lb 14.725 oz Body Mass Index (BMI) 27.3 Intake and Output for Last 24 Hours 05/27/19 05/28/19 05/29/19 23:59 23:59 23:59 Intake Total 2140.42 / 2140.42 5205 / 5205 2962.5 / 2962.5 Output Total 550 / 550 3550 / 3550 875 / 875 Balance 1590.42 / 1590.42 1655 / 1655 2087.5 / 2087.5 General: Alert, Oriented x3, Cooperative, No apparent distress HEENT: Atraumatic, PERRLA, EOMI, Normocephalic Oral: Dry Mucosa Neck: Supple, No JVD, Negative Carotid Bruits Lungs: Clear to auscultation, Normal air movement, No rhonchi, No wheeze, No rales Cardiovascular: Regular rate, Regular Rhythm, Normal S1, Normal S2, No murmurs Abdomen: Bowel Sounds Present, Soft, Non Tender, Non-Distended, No Hepato- splenomegaly Extremities: No clubbing, No cyanosis, No edema, Capillary Refill Less than 3 Seconds Skin: No rashes, No breakdown Musculoskeletal: No Tenderness to Palpation of Joints or Extremities Lymphatic: No Cervical, Supraclavicular, or Inguinal Adenopathy Neurological: Cranial nerves II-XII grossly intact, Neuro grossly intact, Motor Exam 5/5 strength throughout Psych/Mental Status: Normal Affect, Appropriate, Alert and oriented to time, place, person, mood and affect Microbiology Past 72 Hours 05/27/19 10:50 Blood Culture (Wb) - Anticubital Right Blood Culture - Preliminary No growth in 48 hours. 05/27/19 10:35 Blood Culture (Wb) - Anticubital Right Blood Culture - Preliminary No growth in 48 hours. 05/27/19 11:50 Urine, Clean Catch Urine Culture - Final Culture exhibits no growth. Laboratory Results 05/29/19 06:30: WBC 9.8, RBC 4.08 L, Hgb 12.0 L, Hct 36.9 L, MCV 90.4, MCH 29.4, MCHC 32.5, RDW Std Deviation 43.3, RDW Coeff of Kavya 13.0, Plt Count 142 L, MPV 9.6, Immature Gran % (Auto) 0.600, Neut % (Auto) 76.2 H, Lymph % (Auto) 13.5 L, [place] % (Auto) 8.3, Eos % (Auto) 1.2, Baso % (Auto) 0.2, Absolute Neuts (auto) 7.4, Absolute Lymphs (auto) 1.32, Nucleated RBC % 0 05/29/19 06:30: Sodium 143, Potassium 3.7, Chloride 116 H, Carbon Dioxide 26.0, Anion Gap 1 L, BUN 9, Creatinine 1.12, Estim Creat Clear Calc 62.46, Est GFR (MDRD) Af Amer 83, Est GFR (MDRD) Non-Af 69, BUN/Creatinine Ratio 8.0 L, Glucose 98, Calcium 7.5 L 05/29/19 11:33: Calcium Pending Current Medications Amlodipine Besylate (Norvasc) 10 mg PO DAILY [facility] Last Admin: 05/29/19 10:07 Dose: 10 mg Documented by: Calcium/Vitamin D (Os-Axel 500mg + D) 2 tablet PO BIDCM [facility] Ceftriaxone Sodium (Rocephin) 1 gm in 50 mls @ 100 mls/hr IV Q12 [facility] Last Infusion: 05/29/19 10:36 Dose: Infused Documented by: Sodium Chloride () 1,000 mls @ 150 mls/hr IV .Q6H40M [facility] Last Infusion: 05/29/19 11:42 Dose: 0 mls/hr Documented by: Metoprolol Succinate (Toprol Xl (Beta Mara)) 100 mg PO DAILY [facility] Last Admin: 05/29/19 10:07 Dose: 100 mg Documented by: Pantoprazole Sodium (Protonix) 20 mg PO DAILY [facility] Last Admin: 05/29/19 10:07 Dose: 20 mg Documented by: Sodium Chloride () 10 - 40 ml IV UD PRN PRN Reason: SALINE FLUSH Tamsulosin HCl (Flomax) 0.4 mg PO QHS [facility] Last Admin: 05/28/19 22:10 Dose: 0.4 mg Documented by: Tamsulosin HCl (Flomax) 0.4 mg PO QHS [facility] STROKE Vital Signs/Narrative: Vital Signs Pulse 05/29/19 10:07 68 Medical Necessity - Tobacco Use Smoking Status: Never smoker Assessment/Plan 73 y/o admitted with a complaitn of fever and chills. 1. Sepsis due to UTI * wbc is down to 9.8 today. * on IV ceftriaxone. Fever has settled * blood and urine cultures are negative. * CT abdomen and pelvis: inflammatory stranding surrounding bladder and prostate, with no hydronephrosis or obstructive uropathy. * to switch to PO cefdinir 300mg bid x 4 days. * * 2. RAFAELA * Cr down to 1.12. * stable 3. Hypertension: On amlodipine. 4. GERD: On pantoprazole 5. Recent history of parathyroid resection: * on calcium and vitamin D supplements. calcium is 7.5 today. * Will give one dose of IV calcium gluconate one ampule and recheck calcium before discharge. * To follow up with surgeons at [facility] for review. * DVT prophylaxis: SCDs Disposition: patient ok to be discharged from medical standpoint. To go on PO cefdinir 300mg bid x 4 days, to make a total of 7 days of antibiotics Inpatient E&M: [id number] [facility] L2
[2019-05-29 12:15] LABS: Calcium,Total 7.6 mg/dL (8.5-10.1)
--- NOTE | 2019-05-29 12:31 | PCM.HP.STD ---
History of Present Illness Date of Admission: 05/29/19 Chief Complaint: UTi The patient is a 73 year old Male admited for UTI Past Medical History Allergies ibuprofen Adverse Reaction (Verified 05/27/19 10:40) Diarrhea Home Medications: Ambulatory Orders Medication Instructions Recorded Alfuzosin HCl [Alfuzosin HCl ER] 10 mg PO QHS 05/27/19 Amlodipine [Norvasc] 10 mg PO DAILY 05/27/19 Calcium Carbonate/Vitamin D3 2 ea PO BID 05/27/19 [Oyster Shell Calcium-Vit D Tab] Metoprolol(XL)Succ [Toprol Xl 100 mg PO DAILY 05/27/19 (Beta Mara)] Cefdinir [Omnicef [equiv]] 300 mg PO Q12H #8 cap 05/29/19 Smoking Status: Never smoker Review of Systems Constitutional: Reports: Chills, Fever VTE Information - Inpt Only VTE Present on Admission: No VTE Mechan Device Prophylaxis: SCD's - Physical Exam Vitals/I&O's: Vital Signs Temp Pulse Resp BP Pulse Ox 98.7 F 68 16 128/74 H 95 05/29/19 03:34 05/29/19 10:07 05/29/19 03:34 05/29/19 03:34 05/29/19 03:34 Oxygen Delivery Method Room Air Weight: 86.6 kg Body Mass Index (BMI) 27.3 Intake and Output for Last 24 Hours 05/27/19 05/28/19 05/29/19 23:59 23:59 23:59 Intake Total 2140.42 / 2140.42 5205 / 5205 2962.5 / 2962.5 Output Total 550 / 550 3550 / 3550 875 / 875 Balance 1590.42 / 1590.42 1655 / 1655 2087.5 / 2087.5 General: Alert, Oriented x3, Cooperative HEENT: Atraumatic, PERRLA, EOMI, Normocephalic Neck: Supple, No JVD, Negative Carotid Bruits Lungs: Clear to auscultation, Normal air movement Cardiovascular: Regular rate, No murmurs Abdomen: Bowel Sounds Present, Soft, Non Tender Extremities: No edema, Capillary Refill Less than 3 Seconds Skin: No rashes, No breakdown Musculoskeletal: No Tenderness to Palpation of Joints or Extremities Neurological: Cranial nerves II-XII grossly intact Psych/Mental Status: Normal Affect, Appropriate Microbiology Past 72 Hours 05/27/19 10:50 Blood Culture (Wb) - Anticubital Right Blood Culture - Preliminary No growth in 48 hours. 05/27/19 10:35 Blood Culture (Wb) - Anticubital Right Blood Culture - Preliminary No growth in 48 hours. 05/27/19 11:50 Urine, Clean Catch Urine Culture - Final Culture exhibits no growth. Laboratory Results 05/29/19 06:30: WBC 9.8, RBC 4.08 L, Hgb 12.0 L, Hct 36.9 L, MCV 90.4, MCH 29.4, MCHC 32.5, RDW Std Deviation 43.3, RDW Coeff of Kavya 13.0, Plt Count 142 L, MPV 9.6, Immature Gran % (Auto) 0.600, Neut % (Auto) 76.2 H, Lymph % (Auto) 13.5 L, Bennett % (Auto) 8.3, Eos % (Auto) 1.2, Baso % (Auto) 0.2, Absolute Neuts (auto) 7.4, Absolute Lymphs (auto) 1.32, Nucleated RBC % 0 05/29/19 06:30: Sodium 143, Potassium 3.7, Chloride 116 H, Carbon Dioxide 26.0, Anion Gap 1 L, BUN 9, Creatinine 1.12, Estim Creat Clear Calc 62.46, Est GFR (MDRD) Af Amer 83, Est GFR (MDRD) Non-Af 69, BUN/Creatinine Ratio 8.0 L, Glucose 98, Calcium 7.5 L 05/29/19 11:33: Calcium 7.6 L Current Medications Amlodipine Besylate (Norvasc) 10 mg PO DAILY [facility] Last Admin: 05/29/19 10:07 Dose: 10 mg Documented by: Calcium/Vitamin D (Os-Axel 500mg + D) 2 tablet PO BIDCM [facility] Ceftriaxone Sodium (Rocephin) 1 gm in 50 mls @ 100 mls/hr IV Q12 [facility] Last Infusion: 05/29/19 10:36 Dose: Infused Documented by: Sodium Chloride () 1,000 mls @ 150 mls/hr IV .Q6H40M [facility] Last Infusion: 05/29/19 11:42 Dose: 0 mls/hr Documented by: Metoprolol Succinate (Toprol Xl (Beta Mara)) 100 mg PO DAILY [facility] Last Admin: 05/29/19 10:07 Dose: 100 mg Documented by: Pantoprazole Sodium (Protonix) 20 mg PO DAILY [facility] Last Admin: 05/29/19 10:07 Dose: 20 mg Documented by: Sodium Chloride () 10 - 40 ml IV UD PRN PRN Reason: SALINE FLUSH Tamsulosin HCl (Flomax) 0.4 mg PO QHS [facility] Last Admin: 05/28/19 22:10 Dose: 0.4 mg Documented by: Tamsulosin HCl (Flomax) 0.4 mg PO QHS [facility] Assessment/Plan admited for UTI doing better
--- NOTE | 2019-05-29 12:33 | PCM.DC.SUM ---
Discharge Date and Diagnosis Date of Admission: 05/27/19 Date of Discharge: 05/29/19 Hospital Course and Treatment Operations: - - admitted Summary of Care Provided: The patient is a 73 year old male admitted for fevers UTI home today on oral antibiotics doing well. - Physical Exam Vitals/I&O's: Vital Signs Temp Pulse Resp BP Pulse Ox 98.7 F 68 16 128/74 H 95 05/29/19 03:34 05/29/19 10:07 05/29/19 03:34 05/29/19 03:34 05/29/19 03:34 Oxygen Delivery Method Room Air Weight: 86.6 kg Body Mass Index (BMI) 27.3 Intake and Output for Last 24 Hours 05/27/19 05/28/19 05/29/19 23:59 23:59 23:59 Intake Total 2140.42 / 2140.42 5205 / 5205 2962.5 / 2962.5 Output Total 550 / 550 3550 / 3550 875 / 875 Balance 1590.42 / 1590.42 1655 / 1655 2087.5 / 2087.5 General: Alert, Oriented x3, Cooperative HEENT: Atraumatic, PERRLA, EOMI, Normocephalic Neck: Supple, No JVD, Negative Carotid Bruits Lungs: Clear to auscultation, Normal air movement Cardiovascular: Regular rate, No murmurs Abdomen: Bowel Sounds Present, Soft, Non Tender Extremities: No edema, Capillary Refill Less than 3 Seconds Skin: No rashes, No breakdown Musculoskeletal: No Tenderness to Palpation of Joints or Extremities Neurological: Cranial nerves II-XII grossly intact Psych/Mental Status: Normal Affect, Appropriate Microbiology Past 72 Hours 05/27/19 10:50 Blood Culture (Wb) - Anticubital Right Blood Culture - Preliminary No growth in 48 hours. 05/27/19 10:35 Blood Culture (Wb) - Anticubital Right Blood Culture - Preliminary No growth in 48 hours. 05/27/19 11:50 Urine, Clean Catch Urine Culture - Final Culture exhibits no growth. Laboratory Results 05/29/19 06:30: WBC 9.8, RBC 4.08 L, Hgb 12.0 L, Hct 36.9 L, MCV 90.4, MCH 29.4, MCHC 32.5, RDW Std Deviation 43.3, RDW Coeff of Kavya 13.0, Plt Count 142 L, MPV 9.6, Immature Gran % (Auto) 0.600, Neut % (Auto) 76.2 H, Lymph % (Auto) 13.5 L, [place] % (Auto) 8.3, Eos % (Auto) 1.2, Baso % (Auto) 0.2, Absolute Neuts (auto) 7.4, Absolute Lymphs (auto) 1.32, Nucleated RBC % 0 05/29/19 06:30: Sodium 143, Potassium 3.7, Chloride 116 H, Carbon Dioxide 26.0, Anion Gap 1 L, BUN 9, Creatinine 1.12, Estim Creat Clear Calc 62.46, Est GFR (MDRD) Af Amer 83, Est GFR (MDRD) Non-Af 69, BUN/Creatinine Ratio 8.0 L, Glucose 98, Calcium 7.5 L 05/29/19 11:33: Calcium 7.6 L Current Medications Amlodipine Besylate (Norvasc) 10 mg PO DAILY [facility] Last Admin: 05/29/19 10:07 Dose: 10 mg Documented by: Calcium/Vitamin D (Os-Axel 500mg + D) 2 tablet PO BIDCM [facility] Ceftriaxone Sodium (Rocephin) 1 gm in 50 mls @ 100 mls/hr IV Q12 [facility] Last Infusion: 05/29/19 10:36 Dose: Infused Documented by: Sodium Chloride () 1,000 mls @ 150 mls/hr IV .Q6H40M [facility] Last Infusion: 05/29/19 11:42 Dose: 0 mls/hr Documented by: Metoprolol Succinate (Toprol Xl (Beta Mara)) 100 mg PO DAILY [facility] Last Admin: 05/29/19 10:07 Dose: 100 mg Documented by: Pantoprazole Sodium (Protonix) 20 mg PO DAILY [facility] Last Admin: 05/29/19 10:07 Dose: 20 mg Documented by: Sodium Chloride () 10 - 40 ml IV UD PRN PRN Reason: SALINE FLUSH Tamsulosin HCl (Flomax) 0.4 mg PO QHS [facility] Last Admin: 05/28/19 22:10 Dose: 0.4 mg Documented by: Tamsulosin HCl (Flomax) 0.4 mg PO QHS [facility] Discharge Diet: Light diet - advance as tolerated Discharge Activity: Return to Normal Activity Home Medications: Medications to take at Discharge Alfuzosin HCl [Alfuzosin HCl ER] 10 mg PO QHS 05/27/19 Amlodipine [Norvasc] 10 mg PO DAILY 05/27/19 Calcium Carbonate/Vitamin D3 [Oyster Shell Calcium-Vit D Tab] 2 ea PO BID 05/27/19 Metoprolol(XL)Succ [Toprol Xl (Beta Mara)] 100 mg PO DAILY 05/27/19 Cefdinir [Omnicef [equiv]] 300 mg PO Q12H #8 cap 05/29/19 Following Prescrptions Were Given to Patient: Cefdinir [Omnicef [equiv]] 300 mg PO Q12H #8 cap Transmission Status: Received by YIN LAMA-[id number] [facility] Primary Care Physician: Delgado Murillo MD [Primary Care Provider] - Please Follow Up With: Alen Blevins MD When: 10 days Medical Necessity - Tobacco Use Smoking Status: Never smoker Meaningful Use Info Meaningful Use Diagnoses (Choose all that apply): None applicable
--- NOTE | 2019-05-29 12:38 | DCINST_ITS ---
Discharge Diet: Light diet - advance as tolerated Discharge Activity: Return to Normal Activity Allergies/Adverse Reactions: Allergies ibuprofen Adverse Reaction (Verified 05/27/19 10:40) Diarrhea Medications to take at Discharge Alfuzosin HCl [Alfuzosin HCl ER] 10 mg PO QHS 05/27/19 Amlodipine [Norvasc] 10 mg PO DAILY 05/27/19 Calcium Carbonate/Vitamin D3 [Oyster Shell Calcium-Vit D Tab] 2 ea PO BID 05/27/19 Metoprolol(XL)Succ [Toprol Xl (Beta Mara)] 100 mg PO DAILY 05/27/19 Cefdinir [Omnicef [equiv]] 300 mg PO Q12H #8 cap 05/29/19 The following prescriptions were given: Cefdinir [Omnicef [equiv]] 300 mg PO Q12H #8 cap Transmission Status: Received by YIN [id number] Primary Care Physician: Delgado Murillo MD [Primary Care Provider] - Test Results: Test results from this visit will be discussed in further detail at your follow- up appointment, if applicable. Please Follow Up With: Alen Blevins MD When: in 2 weeks, please call to make an appointment.
[2019-05-29 13:45] VITALS: BP 121/76; PULSE 70; RESP 16; TEMP 36.9; O2SAT 96
== END 2019-05-29 14:25 | disposition home or self-care (01) | DRG 872 ==
LOC: MS2 05-28 06:39 → MS3 05-28 18:37
PROVIDERS: Student in an Organized Health Care Education/Training Program; Admitting Provider Urology; PCP Family Medicine; Referring Provider Urology; Visit Provider Urology
DX: A41.9 Sepsis, unspecified organism (principal); N39.0 Urinary tract infection, site not specified; N17.9 Acute kidney failure, unspecified; K21.9 Gastro-esophageal reflux disease without esophagitis; I10 Essential (primary) hypertension
CPT/HCPCS: 36415; 74176; 80048; 80053; 81001; 82310; 83605; 85025; 87040; 87086; J7030; J0610

== ENCOUNTER → 2019-06-06 11:28 | Outpatient (CLI) | payer MEDICARE, SELFPAY ==
[2019-05-27 10:06] VITALS: BMI 27.3
[2019-06-06 16:01] LABS: Anion Gap 7 (5-15); BUN 29 mg/dL (7-18); BUN/Creat Ratio 20.4 RATIO (10-20); Chloride 104 mmol/L (98-107); Creatinine, Serum 1.42 mg/dL (0.70-1.30); EST Glomerular Filtration Rate 52 mL/min (>60); Est Glom Filt Rate - Afr Amer 63 mL/min (>60); Glucose 70 mg/dL (74-106); Potassium 3.7 mmol/L (3.5-5.1); Sodium Level 137 mmol/L (136-145)
[2019-06-06 16:28] LABS: PTHIN 204.6 pg/mL (18.4-80.1)
== END ==
PROVIDERS: PCP Family Medicine; Referring Provider Family Medicine; Visit Provider Family Medicine
DX: E21.3 Hyperparathyroidism, unspecified (principal); M10.9 Gout, unspecified
CPT/HCPCS: 36415; 80048; 83970; 84550

== ENCOUNTER → 2019-06-25 09:44 | Outpatient (CLI) | payer MEDICARE, SELFPAY ==
[2019-05-27 10:06] VITALS: BMI 27.3
[2019-06-25 12:13] LABS: Calcium,Total 9.1 mg/dL (8.5-10.1)
[2019-06-25 14:08] LABS: PTHIN 87.1 pg/mL (18.4-80.1)
[2019-06-25 14:11] LABS: Vitamin D,25 Hydroxy 18.6 ng/mL
== END ==
PROVIDERS: PCP Family Medicine
DX: Z90.09 Acquired absence of other part of head and neck (principal)
CPT/HCPCS: 36415; 82306; 82310; 83970

== ENCOUNTER → 2019-08-26 08:21 | Outpatient (CLI) | payer MEDICARE, SELFPAY ==
[2019-08-26 10:01] LABS: Absolute Lymphocyte Count 1.56 X10^3/uL (0.83-4.51); Absolute Neutrophil Count 2.9 X10^3/uL (2.0-7.7); Basophil# 0.03 X10^3/uL; Basophil% 0.6 % (0-1); Eosinophil# 0.26 X10^3/uL; Hematocrit 46.4 % (40-54); Hemoglobin 14.9 g/dL (13.0-16.5); Lymphocyte # 1.56 X10^3/ul (4.0); Lymphocyte % 29.8 % (19-41); Mean Corp Hgb Conc 32.1 g/dL (32-36); Mean Corpuscular Hgb 28.9 pg (27.0-32.0); Mean Corpuscular Volume 89.9 fL (80-94); Mean Platelet Vol. 9.2 fl (6.2-12.0); Monocyte# 0.49 X10^3/uL; Monocyte% 9.4 % (0-10); NRBC Flagged by Analyzer 0 % (0-5); Neutrophil # 2.89 X10^3/uL (2.7-7.7); Platelet Count 162 K/mm3 (150-450); RBC Distribution Width CV 12.7 % (11.6-14.6); RBC Distribution Width SD 41.9 fl (35.1-43.9); Red Blood Count 5.16 M/mm3 (4.6-6.2); White Blood Count 5.2 K/mm3 (4.4-11.0)
[2019-08-26 10:27] LABS: PTHIN 91.8 pg/mL (18.4-80.1)
[2019-08-26 10:30] LABS: Vitamin D,25 Hydroxy 81.9 ng/mL
[2019-08-26 10:31] LABS: Protein, Urine (Random) 12.8 mg/dL (<11.9); Protein:Creat Ratio 138 mg/g CRE (0-200)
[2019-08-26 10:45] LABS: AST(SGOT) 15 U/L (15-37); Alanine Aminotransfer ALT/SGPT 21 U/L (16-61); Albumin, Serum 3.6 g/dL (3.2-5.0); Alkaline Phosphatase 88 U/L (45-117); Anion Gap 6 (5-15); BUN 22 mg/dL (7-18); BUN/Creat Ratio 16.1 RATIO (10-20); Calcium,Total 8.7 mg/dL (8.5-10.1); Chloride 107 mmol/L (98-107); Cholesterol 188 mg/dL (200); Creatinine, Serum 1.37 mg/dL (0.70-1.30); EST Glomerular Filtration Rate 54 mL/min (>60); Est Glom Filt Rate - Afr Amer 66 mL/min (>60); Globulin 3.6 g/dL (2.2-4.2); Glucose 90 mg/dL (74-106); High Density Lipoprotein 39 mg/dL; Phosphorus 3.1 mg/dL (2.5-4.9); Potassium 3.9 mmol/L (3.5-5.1); Protein, Total 7.2 g/dL (6.4-8.2); Sodium Level 141 mmol/L (136-145); Triglycerides 182 mg/dL; Very Low Density Lipoprotein 36 mg/dL (5-40)
== END ==
PROVIDERS: PCP Family Medicine; Referring Provider Family Medicine
DX: R79.89 Other specified abnormal findings of blood chemistry (principal); N18.3 Chronic kidney disease, stage 3 (moderate); E78.00 Pure hypercholesterolemia, unspecified; M10.9 Gout, unspecified
CPT/HCPCS: 36415; 80053; 80061; 82306; 82570; 83970; 84100; 84156; 84550; 85025

== ENCOUNTER → 2019-10-16 | Outpatient (CLI) | payer MEDICARE, SELFPAY | END | disposition home or self-care (01) | PROVIDERS: PCP Family Medicine; Referring Provider Dermatology; Visit Provider Dermatology | DX: L02.415 Cutaneous abscess of right lower limb (principal) | CPT/HCPCS: 87070; 87077; 87205 ==

== ENCOUNTER → 2019-11-28 11:07 | Outpatient (CLI) | payer MEDICARE, SELFPAY ==
[2019-11-28 13:13] LABS: PSA,Total- Diagnostic 5.01 ng/mL (0.0-4.0)
== END ==
PROVIDERS: PCP Family Medicine; Referring Provider Family Medicine; Visit Provider Urology
DX: N40.1 Benign prostatic hyperplasia with lower urinary tract symptoms (principal)
CPT/HCPCS: 36415; 84153

== ENCOUNTER → 2019-12-18 11:15 | Outpatient (CLI) | payer MEDICARE, SELFPAY ==
[2019-12-18 15:22] LABS: PTHIN 155.6 pg/mL (18.4-80.1)
[2019-12-18 15:25] LABS: Vitamin D,25 Hydroxy 63.2 ng/mL
[2019-12-18 15:28] LABS: Calcium,Total 8.4 mg/dL (8.5-10.1)
== END ==
PROVIDERS: PCP Family Medicine
DX: E21.3 Hyperparathyroidism, unspecified (principal)
CPT/HCPCS: 36415; 82306; 82310; 83970

== ENCOUNTER → 2020-03-03 09:02 | Outpatient (CLI) | payer MEDICARE, SELFPAY ==
--- NOTE | 2020-03-03 09:05 | RAD_ITS ---
STUDY: X-RAY - THORACIC SPINE REASON FOR EXAM: Male, 74 years old patient with mid back pain, more to the right TECHNIQUE: AP and lateral view(s) of the thoracic spine were obtained. COMPARISON: Prior comparison studies are not available for review at this time. FINDINGS: There is an increase in the normal thoracic kyphosis. There is no substantial scoliosis. There is multilevel endplate spondylosis of the thoracic vertebrae. Normal disc space heights. The visualized lungs appear to be clear. The upper abdomen is within normal limits. RAD/Thoracic Spine 3 Views IMPRESSION: Multilevel thoracic spondylosis without obvious compression fracture. Electronically Signed: Rachelle Ponce MD at 8:24 EST , Service support ,
--- NOTE | 2020-03-03 09:05 | RAD_ITS ---
STUDY: X-RAY - LUMBAR SPINE REASON FOR EXAM: Male, 74 years old patient with mid back pain, more to the right TECHNIQUE: 3 view(s) of the lumbar spine were obtained. COMPARISON: CT of the abdomen and pelvis dated 05/27/2019. FINDINGS: Normal lumbar lordosis. There is no substantial scoliosis. There is a normal alignment of the vertebrae. There is multilevel endplate spondylosis of the lumbar vertebrae. There is multi-level degenerative disc disease with multi-level disc space narrowing. There is no demonstrated fracture. The soft tissue structures are unremarkable. RAD/Lumbar Spine 2 or 3 Views IMPRESSION: Multilevel spondylosis, degenerative disc disease and degenerative arthropathy of the imaged thoracic and lumbar spine. Electronically Signed: Rachelle Ponce MD at 8:23 EST , Service support ,
== END ==
PROVIDERS: PCP Family Medicine; Referring Provider Family Medicine; Visit Provider Family Medicine
DX: M47.819 Spondylosis without myelopathy or radiculopathy, site unspecified (principal)
CPT/HCPCS: 72072; 72100

== ENCOUNTER → 2020-03-29 07:52 | Outpatient (CLI) | payer MEDICARE, SELFPAY ==
[2020-03-29 10:04] LABS: Absolute Lymphocyte Count 1.85 X10^3/uL (0.83-4.51); Absolute Neutrophil Count 3.3 X10^3/uL (2.0-7.7); Basophil# 0.03 X10^3/uL; Basophil% 0.5 % (0-1); Eosinophil# 0.27 X10^3/uL; Eosinophils% 4.6 % (0-5); Hematocrit 49.1 % (40-54); Hemoglobin 15.8 g/dL (13.0-16.5); Lymphocyte # 1.85 X10^3/ul (4.0); Lymphocyte % 31.2 % (19-41); Mean Corp Hgb Conc 32.2 g/dL (32-36); Mean Corpuscular Hgb 28.3 pg (27.0-32.0); Mean Platelet Vol. 9.2 fl (6.2-12.0); Monocyte# 0.48 X10^3/uL; Monocyte% 8.1 % (0-10); NRBC Flagged by Analyzer 0 % (0-5); Neutrophil # 3.28 X10^3/uL (2.7-7.7); Neutrophil % 55.3 % (47-70); Platelet Count 188 K/mm3 (150-450); RBC Distribution Width CV 13.1 % (11.6-14.6); RBC Distribution Width SD 42.5 fl (35.1-43.9); Red Blood Count 5.58 M/mm3 (4.6-6.2); White Blood Count 5.9 K/mm3 (4.4-11.0)
[2020-03-29 10:13] LABS: PTHIN 97.5 pg/mL (18.4-80.1)
[2020-03-29 10:17] LABS: Vitamin D,25 Hydroxy 52.2 ng/mL
[2020-03-29 10:20] LABS: Protein, Urine (Random) 32.6 mg/dL (<11.9); Protein:Creat Ratio 226 mg/g CRE (0-200)
[2020-03-29 10:33] LABS: AST(SGOT) 14 U/L (15-37); Alanine Aminotransfer ALT/SGPT 26 U/L (16-61); Albumin, Serum 3.7 g/dL (3.2-5.0); Alkaline Phosphatase 92 U/L (45-117); Anion Gap 6 (5-15); BUN 23 mg/dL (7-18); BUN/Creat Ratio 15.8 RATIO (10-20); Calcium,Total 8.6 mg/dL (8.5-10.1); Chloride 109 mmol/L (98-107); Cholesterol 206 mg/dL (200); Creatinine, Serum 1.46 mg/dL (0.70-1.30); EST Glomerular Filtration Rate 50 mL/min (>60); Est Glom Filt Rate - Afr Amer 61 mL/min (>60); Globulin 3.7 g/dL (2.2-4.2); Glucose 106 mg/dL (74-106); High Density Lipoprotein 42 mg/dL; Potassium 3.8 mmol/L (3.5-5.1); Protein, Total 7.4 g/dL (6.4-8.2); Sodium Level 141 mmol/L (136-145); Triglycerides 205 mg/dL; Uric Acid 7.4 mg/dL (3.5-7.2); Very Low Density Lipoprotein 41 mg/dL (5-40)
== END ==
PROVIDERS: PCP Family Medicine; Referring Provider Family Medicine; Visit Provider Family Medicine
DX: E21.3 Hyperparathyroidism, unspecified (principal); E55.9 Vitamin D deficiency, unspecified; M10.9 Gout, unspecified; E78.00 Pure hypercholesterolemia, unspecified; N18.30 Chronic kidney disease, stage 3 unspecified; R73.09 Other abnormal glucose
CPT/HCPCS: 36415; 80053; 80061; 82306; 82570; 83970; 84156; 84550; 85025

== ENCOUNTER → 2020-04-05 13:06 | Outpatient (CLI) | payer MEDICARE, SELFPAY ==
--- NOTE | 2020-04-05 13:16 | US_ITS ---
STUDY: THYROID ULTRASOUND REASON FOR EXAM: Male, 74 years old. Nodules. TECHNIQUE: Ultrasound evaluation of the thyroid was performed with real-time and static saenz-scale imaging. COMPARISON: 01/07/2019. FINDINGS: RIGHT LOBE: The right lobe of the thyroid gland measures 4.6 x 1.9 x 1.5 cm. There is a homogeneous echotexture. Multiple pulmonary nodules. Primarily cystic nodule measuring 1.1 x 0.7 x 0.7 in the mid to lower thyroid. In the lower pole there is a predominantly solid nodule with some cystic components measuring 0.6 x 0.5 x 0.4 cm. LEFT LOBE: The left lobe of the thyroid gland measures 4.9 x 1.8 x 1.5 cm. There is a homogeneous echotexture. Her multiple nodules. In the upper pole there is a mixed solid and cystic nodule measuring 0.5 x 0.4 x 0.6 cm anteriorly in the upper pole there is a 0.5 x 0.5 x 0.3 cm cyst. There is also a primarily cystic nodule measuring 0.5 x 0.6 x 0.3 cm ISTHMUS: The isthmus measures 0.3 cm. The regional lymph nodes are normal. US/Thyroid IMPRESSION: Numerous bilateral pulmonary nodules. These appear similar in size and appearance to the previous examination. The most suspicious nodule is a solid nodule in the lower pole of the right thyroid. This nodule is moderately suspicious but no FNA or follow-up is necessary given the small size of this nodule. Electronically Signed: Jean Pierre Cha DO at 19:57 EST Tel [phone], Service support ,
== END ==
PROVIDERS: PCP Family Medicine; Referring Provider Family Medicine; Visit Provider Family Medicine
DX: E04.1 Nontoxic single thyroid nodule (principal)
CPT/HCPCS: 76536

== ENCOUNTER → 2020-06-03 11:23 | Outpatient (CLI) | payer MEDICARE, SELFPAY ==
[2020-06-03 13:19] LABS: PSA,Total- Diagnostic 3.63 ng/mL (0.0-4.0)
== END ==
PROVIDERS: PCP Family Medicine; Referring Provider Urology; Visit Provider Urology
DX: R97.20 Elevated prostate specific antigen [PSA] (principal)
CPT/HCPCS: 36415; 84153

== ENCOUNTER → 2020-06-15 15:01 | Outpatient (CLI) | payer MEDICARE, SELFPAY ==
[2020-06-15 16:25] LABS: Calcium,Total 9.1 mg/dL (8.5-10.1)
[2020-06-15 16:34] LABS: Vitamin D,25 Hydroxy 62.9 ng/mL
== END ==
PROVIDERS: PCP Family Medicine
DX: E21.3 Hyperparathyroidism, unspecified (principal)
CPT/HCPCS: 36415; 82306; 82310; 82330

== ENCOUNTER → 2020-06-16 10:43 | Outpatient (CLI) | payer MEDICARE, SELFPAY ==
[2020-06-16 12:25] LABS: PTHIN 95.2 pg/mL (18.4-80.1)
== END ==
PROVIDERS: PCP Family Medicine
DX: E21.3 Hyperparathyroidism, unspecified (principal)
CPT/HCPCS: 83970

== ENCOUNTER → 2020-07-27 07:33 | Outpatient (CLI) | payer MEDICARE, SELFPAY ==
[2020-07-27 10:05] LABS: Absolute Lymphocyte Count 1.63 X10^3/uL (0.83-4.51); Absolute Neutrophil Count 3.1 X10^3/uL (2.0-7.7); Basophil# 0.04 X10^3/uL; Basophil% 0.7 % (0-1); Eosinophil# 0.16 X10^3/uL; Eosinophils% 2.9 % (0-5); Hematocrit 47.5 % (40-54); Hemoglobin 15.5 g/dL (13.0-16.5); Lymphocyte # 1.63 X10^3/ul (0.83-4.51); Mean Corp Hgb Conc 32.6 g/dL (32-36); Mean Corpuscular Volume 88.8 fL (80-94); Mean Platelet Vol. 9.5 fl (6.2-12.0); Monocyte# 0.47 X10^3/uL; Monocyte% 8.6 % (0-10); NRBC Flagged by Analyzer 0 % (0-5); Neutrophil # 3.12 X10^3/uL (2.7-7.7); Neutrophil % 57.4 % (47-70); Platelet Count 167 K/mm3 (150-450); RBC Distribution Width CV 12.9 % (11.6-14.6); RBC Distribution Width SD 41.9 fl (35.1-43.9); Red Blood Count 5.35 M/mm3 (4.6-6.2); White Blood Count 5.4 K/mm3 (4.4-11.0)
[2020-07-27 10:31] LABS: PTHIN 113.1 pg/mL (18.4-80.1)
[2020-07-27 10:33] LABS: Protein, Urine (Random) 24.3 mg/dL (<11.9); Protein:Creat Ratio 209 mg/g CRE (0-200)
[2020-07-27 10:41] LABS: Hemoglobin A1c 5.2 % (3.8-5.6)
[2020-07-27 10:53] LABS: ALB/GLOB Ratio 1.1 RATIO (0.9-2.4); AST(SGOT) 18 U/L (15-37); Alanine Aminotransfer ALT/SGPT 27 U/L (16-61); Albumin, Serum 3.9 g/dL (3.2-5.0); Alkaline Phosphatase 81 U/L (45-117); Anion Gap 6 (5-15); BUN 22 mg/dL (7-18); BUN/Creat Ratio 17.1 RATIO (10-20); Calcium,Total 8.8 mg/dL (8.5-10.1); Chloride 107 mmol/L (98-107); Cholesterol 114 mg/dL (200); Creatinine, Serum 1.29 mg/dL (0.70-1.30); EST Glomerular Filtration Rate 58 mL/min (>60); Est Glom Filt Rate - Afr Amer 70 mL/min (>60); Globulin 3.5 g/dL (2.2-4.2); Glucose 102 mg/dL (74-106); High Density Lipoprotein 43 mg/dL; Potassium 3.9 mmol/L (3.5-5.1); Protein, Total 7.4 g/dL (6.4-8.2); Sodium Level 139 mmol/L (136-145); Triglycerides 134 mg/dL; Uric Acid 6.4 mg/dL (3.5-7.2); Very Low Density Lipoprotein 27 mg/dL (5-40)
== END ==
PROVIDERS: PCP Family Medicine; Referring Provider Family Medicine; Visit Provider Family Medicine
DX: R73.09 Other abnormal glucose (principal); E21.3 Hyperparathyroidism, unspecified; N18.30 Chronic kidney disease, stage 3 unspecified; E78.00 Pure hypercholesterolemia, unspecified; E55.9 Vitamin D deficiency, unspecified; M10.9 Gout, unspecified
CPT/HCPCS: 36415; 80053; 80061; 82306; 82570; 83036; 83970; 84100; 84156; 84550; 85025

== ENCOUNTER → 2020-11-09 09:10 | Outpatient (CLI) | payer MEDICARE, SELFPAY ==
--- NOTE | 2020-11-09 09:15 | RAD_ITS ---
STUDY: X-RAY - LEFT KNEE REASON FOR EXAM: Male, 75 years old. PAIN TECHNIQUE: 4 view(s) of the knee. COMPARISON: None. FINDINGS: Normal visualized distal femur. Normal visualized proximal tibia and fibula. Normal proximal tibiofibular articulation. Normal medial femorotibial compartment. Normal lateral femorotibial compartment. Normal patellofemoral articulation. The soft tissue structures are unremarkable. RAD/Knee 4 or More Views IMPRESSION: Normal x-ray examination of the knee. Electronically Signed: Shimon Taveras MD at 13:44 EDT Tel , Service support ,
--- NOTE | 2020-11-09 09:15 | RAD_ITS ---
STUDY: X-RAY - RIGHT KNEE REASON FOR EXAM: Male, 75 years old. PAIN TECHNIQUE: 4 view(s) of the knee. COMPARISON: None. FINDINGS: Normal visualized distal femur. Normal visualized proximal tibia and fibula. Normal proximal tibiofibular articulation. Normal medial femorotibial compartment. Normal lateral femorotibial compartment. Normal patellofemoral articulation. The soft tissue structures are unremarkable. RAD/Knee 4 or More Views IMPRESSION: Normal x-ray examination of the knee. Electronically Signed: Shimon Taveras MD at 13:43 EDT Tel , Service support ,
--- NOTE | 2020-11-09 09:16 | RAD_ITS ---
STUDY: X-RAY - PELVIS AND BILATERAL HIPS REASON FOR EXAM: Male, 75 years old. PAIN TECHNIQUE: AP view of the pelvis.? 2 views of the right hip, and 2 views of the left hip were obtained. COMPARISON: None. FINDINGS: There is a non-specific bowel gas pattern. Normal visualized soft tissue structures. Normal bilateral iliac wings, sacroiliac joints and visualized sacrum. Normal bilateral superior and inferior pubic rami. Normal pubic symphysis. Normal bilateral ischial tuberosities. Normal visualized right femoral head. Normal right acetabulum. Normal right hip joint. Normal visualized left femoral head. Normal left acetabulum. Normal left hip joint. RAD/Hips B/L min 2 views w/ Pelvis IMPRESSION: Normal x-ray examination of the pelvis and bilateral hips. Electronically Signed: Shimon Taveras MD at 13:44 EDT Tel , Service support ,
[2020-11-09 12:19] LABS: Erythrocyte Sedimentation Rate 9 mm/hr (0-20)
[2020-11-09 12:21] LABS: Absolute Lymphocyte Count 1.56 X10^3/uL (0.83-4.51); Absolute Neutrophil Count 3.6 X10^3/uL (2.0-7.7); Basophil# 0.02 X10^3/uL; Basophil% 0.3 % (0-1); Eosinophil# 0.21 X10^3/uL; Eosinophils% 3.6 % (0-5); Hematocrit 47.7 % (40-54); Hemoglobin 15.7 g/dL (13.0-16.5); Lymphocyte # 1.56 X10^3/ul (0.83-4.51); Lymphocyte % 26.5 % (19-41); Mean Corp Hgb Conc 32.9 g/dL (32-36); Mean Corpuscular Hgb 29.2 pg (27.0-32.0); Mean Corpuscular Volume 88.7 fL (80-94); Mean Platelet Vol. 9.7 fl (6.2-12.0); Monocyte# 0.52 X10^3/uL; Monocyte% 8.8 % (0-10); NRBC Flagged by Analyzer 0 % (0-5); Neutrophil # 3.55 X10^3/uL (2.7-7.7); Neutrophil % 60.5 % (47-70); Platelet Count 174 K/mm3 (150-450); RBC Distribution Width SD 42.2 fl (35.1-43.9); Red Blood Count 5.38 M/mm3 (4.6-6.2); White Blood Count 5.9 K/mm3 (4.4-11.0)
[2020-11-09 12:34] LABS: Protein:Creat Ratio 197 mg/g CRE (0-200)
[2020-11-09 12:38] LABS: Vitamin D,25 Hydroxy 76.7 ng/mL
[2020-11-09 12:53] LABS: PTHIN 137.3 pg/mL (18.4-80.1)
[2020-11-09 12:54] LABS: ALB/GLOB Ratio 1.1 RATIO (0.9-2.4); AST(SGOT) 16 U/L (15-37); Alanine Aminotransfer ALT/SGPT 28 U/L (16-61); Alkaline Phosphatase 79 U/L (45-117); Anion Gap 6 (5-15); BUN 23 mg/dL (7-18); BUN/Creat Ratio 16.5 RATIO (10-20); Calcium,Total 8.5 mg/dL (8.5-10.1); Chloride 106 mmol/L (98-107); Cholesterol 131 mg/dL (200); Creatinine, Serum 1.39 mg/dL (0.70-1.30); EST Glomerular Filtration Rate 53 mL/min (>60); Est Glom Filt Rate - Afr Amer 64 mL/min (>60); Globulin 3.7 g/dL (2.2-4.2); Glucose 98 mg/dL (74-106); High Density Lipoprotein 46 mg/dL; Phosphorus 3.4 mg/dL (2.5-4.9); Potassium 3.8 mmol/L (3.5-5.1); Protein, Total 7.7 g/dL (6.4-8.2); Rheumatoid Factor < 10.0 IU/mL (<15); Sodium Level 140 mmol/L (136-145); Triglycerides 140 mg/dL; Very Low Density Lipoprotein 28 mg/dL (5-40)
[2020-11-10 18:27] LABS: ANTINUCLEAR ANTIBODIES DIRECT Negative (Negative)
== END ==
PROVIDERS: PCP Family Medicine; Referring Provider Family Medicine; Visit Provider Family Medicine
DX: M25.561 Pain in right knee (principal); M25.562 Pain in left knee; M25.551 Pain in right hip; M25.552 Pain in left hip; E21.3 Hyperparathyroidism, unspecified; I12.9 Hypertensive chronic kidney disease with stage 1 through stage 4 chronic kidney disease, or unspecified chronic kidney disease; N18.30 Chronic kidney disease, stage 3 unspecified; E78.00 Pure hypercholesterolemia, unspecified; E55.9 Vitamin D deficiency, unspecified; M25.50 Pain in unspecified joint
CPT/HCPCS: 73521; 73564; 80053; 80061; 82306; 82570; 83970; 84100; 84156; 85025; 85652; 86038; 86431

== ENCOUNTER → 2021-01-25 | Outpatient (CLI) | payer MEDICARE, SELFPAY | END | disposition home or self-care (01) | PROVIDERS: PCP Family Medicine; Visit Provider Nurse Practitioner Family | DX: Z20.822 Contact with and (suspected) exposure to COVID-19 (principal) | CPT/HCPCS: 87635; U0005; U0003 ==

== ENCOUNTER 2021-05-31 08:36 | Outpatient (CLI) | payer MEDICARE, SELFPAY ==
[2021-05-31 08:44] LABS: Mucous, Urine 0 SEEN /hpf (<or=2+); Red Blood Cells-Urine 0 SEEN /hpf (0-5)
[2021-05-31 09:59] LABS: Color, Urine Yellow (Yellow); Glucose, Dipstick Normal (Normal); Ketone-Dipstick Negative (Negative); Leukocyte Esterase-Dipstick Negative /ul (Negative); Nitrite-Dipstick Negative (Negative); Occult Blood-Urine Negative /ul (Negative); Protein-Dipstick 100 mg/dl (Negative); Specific Gravity, Urine 1.015 (1.002-1.030); Urine Bilirubin Dipstick Negative (Negative); Urine Clarity Clear (Clear); Urine Urobilinogen Normal (Normal)
[2021-05-31 10:09] LABS: Absolute Lymphocyte Count 1.45 X10^3/uL (0.83-4.51); Absolute Neutrophil Count 3.3 X10^3/uL (2.0-7.7); Basophil# 0.03 X10^3/uL; Basophil% 0.5 % (0-1); Eosinophil# 0.25 X10^3/uL; Eosinophils% 4.4 % (0-5); Hematocrit 47.6 % (40-54); Hemoglobin 15.6 g/dL (13.0-16.5); Lymphocyte # 1.45 X10^3/ul (0.83-4.51); Lymphocyte % 25.8 % (19-41); Mean Corp Hgb Conc 32.8 g/dL (32-36); Mean Corpuscular Hgb 29.1 pg (27.0-32.0); Mean Corpuscular Volume 88.8 fL (80-94); Mean Platelet Vol. 9.2 fl (6.2-12.0); Monocyte# 0.54 X10^3/uL; Monocyte% 9.6 % (0-10); NRBC Flagged by Analyzer 0 % (0-5); Neutrophil # 3.34 X10^3/uL (2.7-7.7); Neutrophil % 59.3 % (47-70); Platelet Count 177 K/mm3 (150-450); RBC Distribution Width CV 13.1 % (11.6-14.6); RBC Distribution Width SD 42.5 fl (35.1-43.9); Red Blood Count 5.36 M/mm3 (4.6-6.2); White Blood Count 5.6 K/mm3 (4.4-11.0)
[2021-05-31 10:23] LABS: Protein, Urine (Random) 72.4 mg/dL (<11.9); Protein:Creat Ratio 447 mg/g CRE (0-200)
[2021-05-31 10:30] LABS: PTHIN 168.5 pg/mL (18.4-80.1)
[2021-05-31 10:31] LABS: ALB/GLOB Ratio 1.1 RATIO (0.9-2.4); AST(SGOT) 17 U/L (15-37); Alanine Aminotransfer ALT/SGPT 24 U/L (16-61); Albumin, Serum 3.7 g/dL (3.2-5.0); Alkaline Phosphatase 79 U/L (45-117); Anion Gap 6 (5-15); BUN 22 mg/dL (7-18); BUN/Creat Ratio 15.6 RATIO (10-20); Calcium,Total 8.6 mg/dL (8.5-10.1); Chloride 110 mmol/L (98-107); Cholesterol 127 mg/dL (200); Creatinine, Serum 1.41 mg/dL (0.70-1.30); EST Glomerular Filtration Rate 52 mL/min (>60); Est Glom Filt Rate - Afr Amer 63 mL/min (>60); Globulin 3.4 g/dL (2.2-4.2); Glucose 116 mg/dL (74-106); High Density Lipoprotein 38 mg/dL; PSA,Total - Annual Screen 4.19 ng/mL (0.00-4.00); Phosphorus 3.3 mg/dL (2.5-4.9); Protein, Total 7.1 g/dL (6.4-8.2); Sodium Level 141 mmol/L (136-145); Thyroid Stim Hormone (TSH) 1.98 uIU/mL (0.358-3.74); Triglycerides 154 mg/dL; Very Low Density Lipoprotein 31 mg/dL (5-40)
[2021-05-31 10:34] LABS: White Blood Cells 0-5 SEEN /hpf (0-5)
[2021-05-31 10:35] LABS: Bacteria RARE /hpf (None Seen); Squamous Epithelial Cells - UA 0-5 SEEN /hpf (0-5)
== END 2021-05-31 23:59 | disposition home or self-care (01) ==
LOC: MFPLAB 08:37
PROVIDERS: PCP Family Medicine; Referring Provider Family Medicine; Visit Provider Family Medicine
DX: I12.9 Hypertensive chronic kidney disease with stage 1 through stage 4 chronic kidney disease, or unspecified chronic kidney disease (principal); N18.30 Chronic kidney disease, stage 3 unspecified; Z12.5 Encounter for screening for malignant neoplasm of prostate
CPT/HCPCS: 36415; 80053; 80061; 81001; 82570; 83970; 84100; 84153; 84156; 84443; 85025; G0103

== ENCOUNTER 2021-06-03 10:55 | Outpatient (CLI) | payer MEDICARE, SELFPAY ==
--- NOTE | 2021-06-03 11:00 | US_ITS ---
STUDY: THYROID ULTRASOUND REASON FOR EXAM: Male, 75 years old. Known nodules TECHNIQUE: Ultrasound evaluation of the thyroid was performed with real-time and static saenz-scale imaging. COMPARISON: None. FINDINGS: RIGHT LOBE: The right lobe of the thyroid gland measures 4.8 x 1.9 x 1.9 cm. There is a homogeneous echotexture. There is a stable complex solid/cystic 1.2 center nodule, and a stable solid 0.5 cm nodule LEFT LOBE: The left lobe of the thyroid gland measures 4.6 x 1.7 x 1.7 cm. There is a heterogeneous echotexture. Multiple stable nodules, there is a stable 0.6 and meter cyst and stable 0.6 cm solid nodules. ISTHMUS: The isthmus measures 3 mm. The regional lymph nodes are normal. US/Thyroid IMPRESSION: Borderline enlarged thyroid gland with stable bilateral nodules, no significant interval change since the previous study, another year follow-up is recommended Electronically Signed: Chay Pino MD at 17:24 EDT ,
== END 2021-06-03 23:59 | disposition home or self-care (01) ==
LOC: US 10:56
PROVIDERS: PCP Family Medicine; Referring Provider Family Medicine; Visit Provider Family Medicine
DX: E04.1 Nontoxic single thyroid nodule (principal)
CPT/HCPCS: 76536

== ENCOUNTER 2021-06-07 16:39 | Emergency (ER) | payer MEDICARE, SELFPAY ==
[2021-06-07] VITALS (10 sets, daily range): BP systolic 145–168; BP diastolic 78–90; PULSE 79–105; RESP 18–24; TEMP 35.7–37.2; O2SAT 93–99; BMI 31.8
--- NOTE | 2021-06-07 17:08 | EDS_ITS ---
HPI <Dr. Rashard Marie DO - Last Filed: 06/07/21 21:25> History of Present Illness Informant: patient Onset/Context/Timing Onset: Yesterday Context: sudden Timing: Continuous Quality: Positive for Wheezing Worsened by: Lying flat Relieved by: Albuterol Associated Symptoms cough and clear sputum; Negative for rhinorrhea, ear pain, fever, sore throat, chills, sweats, white sputum, yellow sputum or green sputum Chest Pain: Positive for None Narrative Narrative: Presents with shortness of breath that began yesterday. Patient states it began rather suddenly. Patient states he has a history of asthma and this feels similar to previous episodes. Patient states he has been using his home aerosols with no improvement. Patient states that his grandkids have had viral upper respiratory infections recently. Patient states his breathing is worse whenever he lays flat and takes a nap. Patient states it improves briefly with his albuterol aerosols at home. Patient admits to a cough with some clear sputum. Patient also admits to a sore throat. Patient denies any fevers or chills. Patient denies any chest pain. [facility] <Dr. Rashard Marie, DO - Last Filed: 06/07/21 21:25> [facility] Medical History (Updated 06/15/21 @ 00:00 by Rj Vicente) Asthma Chronic kidney disease Hard of hearing Home Medications alfuzosin 10 mg PO QHS 05/27/19 [History Last Taken Unknown] amlodipine 10 mg PO DAILY 05/27/19 [History Last Taken Unknown] metoprolol succinate 100 mg PO DAILY 05/27/19 [History Last Taken Unknown] prednisone 60 mg PO DAILY #15 tablet 06/07/21 [Rx Last Taken Unknown] Allergy/AdvReac Type Severity Reaction Status Date / Time ibuprofen AdvReac Diarrhea Verified 06/07/21 16:41 Surgical History History of colon resection Social History Smoking Status: Never smoker ROS <Dr. Rashard Marie DO - Last Filed: 06/07/21 21:25> ROS ED Constitutional Constitutional ED: Denies chills or fever(s) Eyes Eyes: Denies blurry vision or change in vision ENT ENT ED: Reports sore throat; Denies rhinorrhea Cardiovascular Cardiovascular: Denies chest pain or palpitations Respiratory/Chest Respiratory/Chest: Reports cough and dyspnea Gastrointestinal Gastrointestinal: Denies nausea or vomiting Genitourinary Genitourinary ED: Denies dysuria or hematuria Musculoskeletal Musculoskeletal: Denies back pain or neck pain Integumentary Reports rash; Denies abscess Neurologic Neurologic: Denies headache(s) or weakness Allergic/Immunologic Allergic/Immunologic ED: Denies mouth swelling or urticaria EXAM <Dr. Rashard Marie DO - Last Filed: 06/07/21 21:25> Physical Exam Const Vital Signs: 06/07/21 16:39 06/07/21 16:50 06/07/21 17:37 Temperature 96.2 F L 98.7 F Temperature Source Temporal Temporal Pulse Rate 83 85 98 Respiratory Rate 24 H 22 H 20 H Respiratory Pattern Normal Blood Pressure 156/87 H 160/82 H Blood Pressure Mean 110 108 Pulse Ox 93 94 Oxygen Delivery Method Room Air Room Air 06/07/21 17:44 06/07/21 19:18 Temperature 98.7 F 98.9 F Temperature Source Temporal Temporal Pulse Rate 79 91 Respiratory Rate 22 H 20 H Respiratory Pattern Blood Pressure 145/90 H 168/86 H Blood Pressure Mean 108 113 Pulse Ox 99 93 Oxygen Delivery Method Room Air Room Air Positive well nourished and well developed General Appearance ED: well developed HEENT Reports moist mucous membranes Neck supple and no JVD Resp normal respiratory effort Auscultation: wheezes expiratory wheezes and throughout Cardio regular rate, regular rhythm and no murmurs GI normal to inspection, nondistended, normoactive bowel sounds and non-tender Palpation: soft Extremity normal to inspection General Extremety ED: Negative for edema or tenderness General Extremity: Negative for edema Neuro oriented x3, CN's II-XII intact bilaterally and no sensory deficits noted Sensorium / Orientation: alert Motor Exam: strength 5/5 throughout Psych mental status grossly normal Skin no rashes or lesions noted <Ally Isabel NP-C - Last Filed: 06/20/21 16:57> Physical Exam Const Vital Signs: 06/07/21 16:39 06/07/21 16:50 06/07/21 17:37 Temperature 96.2 F L 98.7 F Temperature Source Temporal Temporal Pulse Rate 83 85 98 Respiratory Rate 24 H 22 H 20 H Respiratory Pattern Normal Blood Pressure 156/87 H 160/82 H Blood Pressure Mean 110 108 Pulse Ox 93 94 Oxygen Delivery Method Room Air Room Air 06/07/21 17:44 06/07/21 19:18 Temperature 98.7 F 98.9 F Temperature Source Temporal Temporal Pulse Rate 79 91 Respiratory Rate 22 H 20 H Respiratory Pattern Blood Pressure 145/90 H 168/86 H Blood Pressure Mean 108 113 Pulse Ox 99 93 Oxygen Delivery Method Room Air Room Air [facility] <Dr. Rashard Marie, DO - Last Filed: 06/07/21 21:25> [facility] Narrative Medical decision making narrative: Patient was given a DuoNeb aerosol here. Patient was given a dose of prednisone. EKG was obtained. On my interpretation, it shows a normal sinus rhythm with a rate of 77. There is left axis deviation. There is right bundle branch block pattern noted. WA interval was normal. QTC was. There is left axis deviation at -55. There are no acute ST or T wave changes. CBC was within normal limits. Basic metabolic profile shows slightly elevated creatinine of 1.44 and BUN of 20. These are consistent with prior results. High-sensitivity troponin was normal at 5. Portable 1 view chest x-ray was obtained. On my interpretation, lung arzate are clear. There is normal cardiac silhouette. Bony thorax is normal. There is no acute process noted. Radiologist also interpreted the x-ray and agrees. Patient stated he was feeling better on reevaluation. Patient's pulse oximeter readings were 88 to 90% on room air. Because of this, patient was given a repeat albuterol aerosol. Patient will be ambulated with a pulse oximeter after this. Patient's pulse oximeter started 95% and dropped to 90% with ambulation down the [place] and back. Patient was given a prescription for prednisone. Patient was instructed to continue his albuterol at home as prescribed. Patient was instructed return if worse in any way. Patient understood and was agreeable with the plan. All questions were answered. Lab Data Attestation: I reviewed the patient's lab results. Labs: Laboratory Results - last 24 hr 06/07/21 06/07/21 17:15 17:15 WBC 9.6 RBC 5.45 Hgb 16.5 Hct 48.0 MCV 88.1 MCH 30.3 MCHC 34.4 RDW Std Deviation 42.0 RDW Coeff of Kavya 13.0 Plt Count 175 MPV 9.0 Immature Gran % (Auto) 0.300 Neut % (Auto) 74.4 H Lymph % (Auto) 13.7 L [place] % (Auto) 8.5 Eos % (Auto) 2.7 Baso % (Auto) 0.4 Absolute Neuts (auto) 7.1 Absolute Lymphs (auto) 1.31 Nucleated RBC % 0 Sodium 141 Potassium 3.7 Chloride 109 H Carbon Dioxide 26.0 Anion Gap 6 BUN 20 H Creatinine 1.44 H Estim Creat Clear Calc 47.17 Est GFR (MDRD) Af Amer 62 Est GFR (MDRD) Non-Af 51 L BUN/Creatinine Ratio 13.9 Glucose 82 Calcium 8.9 Troponin I High Sens 5 Radiography Chest X-Ray - ED: 1 View, Read by ED Physician, Read by Radiologist and No Acute Disease Diagnostic Testing: Clinical Impression(s) from Imaging Studies Chest X-Ray 06/07/21 17:23 IMPRESSION: There are no acute findings. Electronically Signed: Bernabe Sanders MD at 17:41 EDT Reading Location ID and State: [facility] / ID , Service support , EKG Initial EKG: Attestation: I personally reviewed and interpreted this EKG as follows: Interpretation: Sinus Rhythm (77) and RBBB Comments: Left axis deviation Prior EKG tracings: not available for review <ROCHELLE Coker - Last Filed: 06/20/21 16:57> [facility] Lab Data Labs: Laboratory Results - last 24 hr 06/07/21 06/07/21 17:15 17:15 WBC 9.6 RBC 5.45 Hgb 16.5 Hct 48.0 MCV 88.1 MCH 30.3 MCHC 34.4 RDW Std Deviation 42.0 RDW Coeff of Kavya 13.0 Plt Count 175 MPV 9.0 Immature Gran % (Auto) 0.300 Neut % (Auto) 74.4 H Lymph % (Auto) 13.7 L [place] % (Auto) 8.5 Eos % (Auto) 2.7 Baso % (Auto) 0.4 Absolute Neuts (auto) 7.1 Absolute Lymphs (auto) 1.31 Nucleated RBC % 0 Sodium 141 Potassium 3.7 Chloride 109 H Carbon Dioxide 26.0 Anion Gap 6 BUN 20 H Creatinine 1.44 H Estim Creat Clear Calc 47.17 Est GFR (MDRD) Af Amer 62 Est GFR (MDRD) Non-Af 51 L BUN/Creatinine Ratio 13.9 Glucose 82 Calcium 8.9 Troponin I High Sens 5 Radiography Diagnostic Testing: Clinical Impression(s) from Imaging Studies Chest X-Ray 06/07/21 17:23 IMPRESSION: There are no acute findings. Electronically Signed: Bernabe Sanders MD at 17:41 EDT Reading Location ID and State: [facility] / ID , Service support , Discharge Plan Triage Chief Complaint: Shortness of Breath ED Provider: Rashard Marie Dx/Rx/DC Orders Clinical Impression: Asthma exacerbation Instructions: ED Asthma, Acute (Adult) Prescriptions: New prednisone 20 MG tablet 60 mg PO DAILY Qty: 15 RF: 0 No Action metoprolol succinate 100 MG tablet 100 mg PO DAILY RF: 0 alfuzosin 10 MG tablet extended release 24 hr 10 mg PO QHS RF: 0 amlodipine 10 MG tablet 10 mg PO DAILY RF: 0 Primary Care Provider: Delgado Murillo Referrals: Delgado Murillo MD [Primary Care Provider] - Disposition Disposition: Home, Self Care Discharge Date/Time: 06/07/21 23:59 <Ally Isabel NP-C - Last Filed: 06/20/21 16:57> Addendum Details:: No edits made, chart inadvertantly accessed.
--- NOTE | 2021-06-07 17:14 | EKG12_ITS ---
Test Reason : Blood Pressure : / mmHG Vent. Rate : 077 BPM Atrial Rate : 077 BPM P-R Int : 186 ms QRS Dur : 154 ms QT Int : 426 ms P-R-T Axes : 029 -55 004 degrees QTc Int : 482 ms Normal sinus rhythm Left axis deviation Right bundle branch block Septal infarct , age undetermined Abnormal ECG Confirmed by LANG ERICKSON, KIKI ([id number]), assistant film editor DIDI ESPINO ([id number]) on 06/13/2021 11:21:50 AM Referred By: Confirmed By:KIKI CROFT MD
[2021-06-07] MEDS: predniSONE 20 MG Tablet 60 MG PO (17:19)
--- NOTE | 2021-06-07 17:23 | RAD_ITS ---
STUDY: X-RAY CHEST REASON FOR EXAM: Male, 75 years old. CHEST PAIN Dyspnea TECHNIQUE: XR Chest 1 View COMPARISON: Prior comparison studies are not available for review at this time. FINDINGS: There is no demonstrated pleural abnormality. Normal size heart. Normal mediastinum and kate. Normal visualized pulmonary arteries. Normal visualized aortic arch and descending thoracic aorta. There are diffuse degenerative changes of the visualized thoracic spine. Normal visualized ribs, clavicles, and shoulders. There is no demonstrated abnormality of the visualized soft tissue structures of the upper abdomen. RAD/Chest 1 View (Portable) IMPRESSION: There are no acute findings. Electronically Signed: Bernabe Sanders MD at 17:41 EDT ,
[2021-06-07 17:26] LABS: Absolute Lymphocyte Count 1.31 X10^3/uL (0.83-4.51); Absolute Neutrophil Count 7.1 X10^3/uL (2.0-7.7); Basophil# 0.04 X10^3/uL; Basophil% 0.4 % (0-1); Eosinophil# 0.26 X10^3/uL; Eosinophils% 2.7 % (0-5); Hemoglobin 16.5 g/dL (13.0-16.5); Lymphocyte # 1.31 X10^3/ul (0.83-4.51); Lymphocyte % 13.7 % (19-41); Mean Corp Hgb Conc 34.4 g/dL (32-36); Mean Corpuscular Hgb 30.3 pg (27.0-32.0); Mean Corpuscular Volume 88.1 fL (80-94); Monocyte# 0.81 X10^3/uL; Monocyte% 8.5 % (0-10); NRBC Flagged by Analyzer 0 % (0-5); Neutrophil # 7.12 X10^3/uL (2.7-7.7); Neutrophil % 74.4 % (47-70); Platelet Count 175 K/mm3 (150-450); Red Blood Count 5.45 M/mm3 (4.6-6.2); White Blood Count 9.6 K/mm3 (4.4-11.0)
[2021-06-07] MEDS: Ipratropium/Albuterol Sulfate 3 ML AMPUL.NEB INHALATION (17:37)
[2021-06-07 17:42] LABS: Anion Gap 6 (5-15); BUN 20 mg/dL (7-18); BUN/Creat Ratio 13.9 RATIO (10-20); Calcium,Total 8.9 mg/dL (8.5-10.1); Chloride 109 mmol/L (98-107); Creatinine, Serum 1.44 mg/dL (0.70-1.30); EST Glomerular Filtration Rate 51 mL/min (>60); Est Glom Filt Rate - Afr Amer 62 mL/min (>60); Estimated Creatinine Clearance 47.17 ml/min; Glucose 82 mg/dL (74-106); Potassium 3.7 mmol/L (3.5-5.1); Sodium Level 141 mmol/L (136-145); Troponin-I HS 5 pg/mL (3.0-78.0)
[2021-06-07] MEDS: Albuterol 2.5 MG/3 ML VIAL.NEB. INHALATION (19:47)
--- NOTE | 2021-06-07 20:12 | CPS ---
[1945] x1 Albuterol given to pt. Pre-assessment: 101 HR 22 RR with expiratory wheezes throughout. Post-assessment: 102 HR 22 RR with expiratory wheezes throughout.
--- NOTE | 2021-06-07 21:20 | NURSING ---
pulse ox 95 at rest . pt walked the hallway and po drop to 90 . informed
--- NOTE | 2021-06-08 13:14 | CM.ED ---
ER RNCM DC F/u Call: ED Visit 06.07.21 for SOB (Bronchitis and Asthma per patient) Called patient on listed cell phone number, patient answered and this quality analyst/technical writer introduced self and role. Patient states that he is doing remarkably better and just seen Dr Murillo this morning. States pcp gave him a couple inhalers and confirmed has the Prednisone and has been taking it. No issues or concerns voiced to this quality analyst/technical writer at this time and states that the ED ACI were very clear. KRYSTYNA Chambers
== END 2021-06-07 21:33 | disposition home or self-care (01) ==
PROVIDERS: Emergency Provider Emergency Medicine; PCP Family Medicine; Visit Provider Emergency Medicine
DX: J45.901 Unspecified asthma with (acute) exacerbation (principal); I45.10 Unspecified right bundle-branch block; N18.9 Chronic kidney disease, unspecified; Z79.899 Other long term (current) drug therapy
CPT/HCPCS: 71045; 80048; 84484; 85025; 87426; 87804; 93005; 94640; 99284

== ENCOUNTER 2021-06-20 09:27 | Outpatient (CLI) | payer MEDICARE, SELFPAY ==
--- NOTE | 2021-06-20 09:34 | NM_ITS ---
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 99m Tc SESTAMIBI DUAL PHASE PARATHYROID SCINTIGRAPHY COMPARISON: Thyroid ultrasound report 06/03/2021 FINDINGS: Following the intravenous administration of 26 mCi of 99m Tc sestamibi, image acquisitions of the anterior neck at approximately 10 minutes and 3.0 hours post radiopharmaceutical provision reveal: 1. Immediate static blood pool acquisitions demonstrate uniform radiopharmaceutical concentration defined in the left-right lobes of a U-shaped thyroid gland. The right lobe is larger than left. 2. Delayed images depict symmetric washout of the radiotracer from the defined right-left thyroid beds. No focal retained uptake is demonstrated in the bilateral anterior neck NM/Parathyroid Scan IMPRESSION: 1. NEGATIVE 99m Tc SESTAMIBI PARATHYROID IMAGING DUAL PHASE EXAMINATION. 2. there is no definitive typical scintigraphic evidence of parathyroid adenoma on the current evaluation. Electronically Signed: Shimon Myles DO at 22:40 EDT ,
== END 2021-06-20 23:59 | disposition home or self-care (01) ==
LOC: NM 09:31
PROVIDERS: PCP Family Medicine; Referring Provider Family Medicine; Visit Provider Family Medicine
DX: E21.3 Hyperparathyroidism, unspecified (principal)
CPT/HCPCS: 78070; A9500

== ENCOUNTER → 2021-09-28 | Outpatient (CLI) | payer MEDICARE, SELFPAY ==
[2021-09-28 10:33] LABS: Absolute Lymphocyte Count 1.88 X10^3/uL (0.83-4.51); Absolute Neutrophil Count 3.3 X10^3/uL (2.0-7.7); Basophil# 0.03 X10^3/uL; Basophil% 0.5 % (0-1); Eosinophil# 0.24 X10^3/uL; Hematocrit 47.1 % (40-54); Hemoglobin 15.7 g/dL (13.0-16.5); Lymphocyte # 1.88 X10^3/ul (0.83-4.51); Lymphocyte % 31.6 % (19-41); Mean Corp Hgb Conc 33.3 g/dL (32-36); Mean Corpuscular Hgb 29.6 pg (27.0-32.0); Mean Corpuscular Volume 88.9 fL (80-94); Mean Platelet Vol. 9.6 fl (6.2-12.0); Monocyte# 0.51 X10^3/uL; Monocyte% 8.6 % (0-10); NRBC Flagged by Analyzer 0 % (0-5); Neutrophil # 3.27 X10^3/uL (2.7-7.7); Platelet Count 166 K/mm3 (150-450); RBC Distribution Width CV 13.1 % (11.6-14.6); RBC Distribution Width SD 42.4 fl (35.1-43.9)
[2021-09-28 10:46] LABS: Protein, Urine (Random) 40.8 mg/dL (<11.9); Protein:Creat Ratio 358 mg/g CRE (0-200)
[2021-09-28 10:49] LABS: ALB/GLOB Ratio 1.1 RATIO (0.9-2.4); AST(SGOT) 18 U/L (15-37); Alanine Aminotransfer ALT/SGPT 21 U/L (16-61); Albumin, Serum 3.8 g/dL (3.2-5.0); Alkaline Phosphatase 78 U/L (45-117); Anion Gap 4 (5-15); BUN 19 mg/dL (7-18); BUN/Creat Ratio 14.1 RATIO (10-20); Calcium,Total 8.5 mg/dL (8.5-10.1); Chloride 109 mmol/L (98-107); Cholesterol 124 mg/dL (200); Creatinine, Serum 1.35 mg/dL (0.70-1.30); EST Glomerular Filtration Rate 55 mL/min (>60); Est Glom Filt Rate - Afr Amer 66 mL/min (>60); Globulin 3.4 g/dL (2.2-4.2); Glucose 108 mg/dL (74-106); High Density Lipoprotein 39 mg/dL; Protein, Total 7.2 g/dL (6.4-8.2); Sodium Level 139 mmol/L (136-145); Triglycerides 163 mg/dL; Very Low Density Lipoprotein 33 mg/dL (5-40)
[2021-09-28 10:50] LABS: PTHIN 153.3 pg/mL (18.4-80.1)
[2021-09-28 10:54] LABS: Vitamin D,25 Hydroxy 31.4 ng/mL
== END | disposition home or self-care (01) ==
LOC: MFPLAB 08:48
PROVIDERS: PCP Family Medicine; Referring Provider Family Medicine; Visit Provider Family Medicine
DX: I10 Essential (primary) hypertension (principal); E21.3 Hyperparathyroidism, unspecified; E55.9 Vitamin D deficiency, unspecified; E78.00 Pure hypercholesterolemia, unspecified
CPT/HCPCS: 36415; 80053; 80061; 82306; 82570; 83970; 84156; 85025

== ENCOUNTER 2022-01-30 08:28 | Outpatient (CLI) | payer MEDICARE, SELFPAY ==
[2022-01-30 09:53] LABS: Absolute Lymphocyte Count 1.89 X10^3/uL (0.83-4.51); Absolute Neutrophil Count 3.7 X10^3/uL (2.0-7.7); Basophil# 0.03 X10^3/uL; Basophil% 0.5 % (0-1); Eosinophil# 0.23 X10^3/uL; Eosinophils% 3.6 % (0-5); Hemoglobin 15.6 g/dL (13.0-16.5); Lymphocyte # 1.89 X10^3/ul (0.83-4.51); Lymphocyte % 29.6 % (19-41); Mean Corp Hgb Conc 32.5 g/dL (32-36); Mean Corpuscular Hgb 29.3 pg (27.0-32.0); Mean Corpuscular Volume 90.1 fL (80-94); Mean Platelet Vol. 9.4 fl (6.2-12.0); Monocyte# 0.51 X10^3/uL; NRBC Flagged by Analyzer 0 % (0-5); Neutrophil # 3.71 X10^3/uL (2.7-7.7); Platelet Count 162 K/mm3 (150-450); RBC Distribution Width SD 42.7 fl (35.1-43.9); Red Blood Count 5.33 M/mm3 (4.6-6.2); White Blood Count 6.4 K/mm3 (4.4-11.0)
[2022-01-30 10:05] LABS: Vitamin D,25 Hydroxy 70.2 ng/mL
[2022-01-30 10:11] LABS: Protein, Urine (Random) 24.5 mg/dL (<11.9); Protein:Creat Ratio 204 mg/g CRE (0-200)
[2022-01-30 10:15] LABS: AST(SGOT) 18 U/L (15-37); Alanine Aminotransfer ALT/SGPT 25 U/L (16-61); Albumin, Serum 3.7 g/dL (3.2-5.0); Alkaline Phosphatase 90 U/L (45-117); Anion Gap 5 (5-15); BUN 23 mg/dL (7-18); BUN/Creat Ratio 16.3 RATIO (10-20); Calcium,Total 8.8 mg/dL (8.5-10.1); Chloride 109 mmol/L (98-107); Cholesterol 127 mg/dL (200); Creatinine, Serum 1.41 mg/dL (0.70-1.30); EST Glomerular Filtration Rate 52 mL/min (>60); Est Glom Filt Rate - Afr Amer 63 mL/min (>60); Globulin 3.7 g/dL (2.2-4.2); Glucose 107 mg/dL (74-106); High Density Lipoprotein 40 mg/dL; Potassium 4.1 mmol/L (3.5-5.1); Protein, Total 7.4 g/dL (6.4-8.2); Sodium Level 140 mmol/L (136-145); Triglycerides 151 mg/dL; Very Low Density Lipoprotein 30 mg/dL (5-40)
[2022-01-30 10:16] LABS: PTHIN 109.6 pg/mL (18.4-80.1)
== END 2022-01-30 23:59 | disposition home or self-care (01) ==
LOC: MFPLAB 08:29
PROVIDERS: PCP Family Medicine; Referring Provider Family Medicine; Visit Provider Family Medicine
DX: I12.9 Hypertensive chronic kidney disease with stage 1 through stage 4 chronic kidney disease, or unspecified chronic kidney disease (principal); E21.3 Hyperparathyroidism, unspecified; N18.31 Chronic kidney disease, stage 3a; M10.9 Gout, unspecified; E55.9 Vitamin D deficiency, unspecified
CPT/HCPCS: 36415; 80053; 80061; 82306; 82570; 83970; 84100; 84156; 84550; 85025

== ENCOUNTER → 2022-05-18 | Outpatient (CLI) | payer MEDICARE, SELFPAY ==
[2022-05-18 10:16] LABS: Absolute Lymphocyte Count 1.82 X10^3/uL (0.83-4.51); Absolute Neutrophil Count 3.7 X10^3/uL (2.0-7.7); Basophil# 0.03 X10^3/uL; Basophil% 0.5 % (0-1); Eosinophil# 0.17 X10^3/uL; Eosinophils% 2.8 % (0-5); Hematocrit 46.2 % (40-54); Hemoglobin 15.6 g/dL (13.0-16.5); Lymphocyte # 1.82 X10^3/ul (0.83-4.51); Lymphocyte % 29.4 % (19-41); Mean Corp Hgb Conc 33.8 g/dL (32-36); Mean Corpuscular Hgb 30.1 pg (27.0-32.0); Mean Platelet Vol. 9.5 fl (6.2-12.0); Monocyte% 8.1 % (0-10); NRBC Flagged by Analyzer 0 % (0-5); Neutrophil # 3.65 X10^3/uL (2.7-7.7); Platelet Count 187 K/mm3 (150-450); RBC Distribution Width CV 12.8 % (11.6-14.6); RBC Distribution Width SD 41.6 fl (35.1-43.9); Red Blood Count 5.19 M/mm3 (4.6-6.2); White Blood Count 6.2 K/mm3 (4.4-11.0)
[2022-05-18 10:31] LABS: Vitamin D,25 Hydroxy 74.4 ng/mL
[2022-05-18 10:43] LABS: AST(SGOT) 20 U/L (15-37); Alanine Aminotransfer ALT/SGPT 23 U/L (16-61); Albumin, Serum 3.6 g/dL (3.2-5.0); Alkaline Phosphatase 75 U/L (45-117); Anion Gap 8 (5-15); BUN 26 mg/dL (7-18); Calcium,Total 8.5 mg/dL (8.5-10.1); Chloride 108 mmol/L (98-107); Cholesterol 113 mg/dL (200); EST Glomerular Filtration Rate 57 mL/min (>60); Est Glom Filt Rate - Afr Amer 69 mL/min (>60); Globulin 3.5 g/dL (2.2-4.2); Glucose 106 mg/dL (74-106); High Density Lipoprotein 39 mg/dL; Phosphorus 3.2 mg/dL (2.5-4.9); Potassium 4.2 mmol/L (3.5-5.1); Protein, Total 7.1 g/dL (6.4-8.2); Sodium Level 141 mmol/L (136-145); Thyroid Stim Hormone (TSH) 1.25 uIU/mL (0.358-3.74); Triglycerides 113 mg/dL; Uric Acid 7.2 mg/dL (3.5-7.2); Very Low Density Lipoprotein 23 mg/dL (5-40)
[2022-05-18 10:48] LABS: PTHIN 118.6 pg/mL (18.4-80.1)
== END | disposition home or self-care (01) ==
LOC: MFPLAB 08:19
PROVIDERS: PCP Family Medicine; Referring Provider Family Medicine; Visit Provider Family Medicine
DX: I12.9 Hypertensive chronic kidney disease with stage 1 through stage 4 chronic kidney disease, or unspecified chronic kidney disease (principal); E21.3 Hyperparathyroidism, unspecified; N18.30 Chronic kidney disease, stage 3 unspecified; M10.9 Gout, unspecified; E55.9 Vitamin D deficiency, unspecified
CPT/HCPCS: 36415; 80053; 80061; 82306; 83970; 84100; 84443; 84550; 85025

== ENCOUNTER → 2022-11-13 | Outpatient (CLI) | payer MEDICARE, SELFPAY ==
[2022-11-13 08:18] LABS: Bacteria 0 SEEN /hpf (None Seen); Mucous, Urine 0 SEEN /hpf (<or=2+); Red Blood Cells-Urine 0 SEEN /hpf (0-5); White Blood Cells 0 SEEN /hpf (0-5)
[2022-11-13 09:55] LABS: Color, Urine Yellow (Yellow); Glucose, Dipstick Normal (Normal); Ketone-Dipstick Negative (Negative); Leukocyte Esterase-Dipstick Negative /ul (Negative); Nitrite-Dipstick Negative (Negative); Occult Blood-Urine 10 /ul (Negative); Protein-Dipstick 30 mg/dl (Negative); Urine Bilirubin Dipstick Negative (Negative); Urine Clarity Clear (Clear); Urine Urobilinogen Normal (Normal); Urine pH 6.5 (5.0 - 8.0)
[2022-11-13 10:08] LABS: Squamous Epithelial Cells - UA 0-5 SEEN /hpf (0-5)
[2022-11-13 10:13] LABS: Protein, Urine (Random) 37.1 mg/dL (<11.9); Protein:Creat Ratio 397 mg/g CRE (0-200)
== END | disposition home or self-care (01) ==
LOC: MFPLAB 08:13
PROVIDERS: PCP Family Medicine; Visit Provider Family Medicine
DX: I12.9 Hypertensive chronic kidney disease with stage 1 through stage 4 chronic kidney disease, or unspecified chronic kidney disease (principal); N18.30 Chronic kidney disease, stage 3 unspecified
CPT/HCPCS: 81001; 82570; 84156

== ENCOUNTER → 2022-11-14 | Outpatient (CLI) | payer MEDICARE, SELFPAY ==
[2022-11-14 10:29] LABS: Absolute Lymphocyte Count 1.62 X10^3/uL (0.83-4.51); Absolute Neutrophil Count 3.4 X10^3/uL (2.0-7.7); Basophil# 0.04 X10^3/uL; Basophil% 0.7 % (0-1); Eosinophil# 0.17 X10^3/uL; Eosinophils% 2.9 % (0-5); Hematocrit 48.1 % (40-54); Hemoglobin 15.6 g/dL (13.0-16.5); Lymphocyte # 1.62 X10^3/ul (0.83-4.51); Lymphocyte % 28.1 % (19-41); Mean Corp Hgb Conc 32.4 g/dL (32-36); Mean Corpuscular Hgb 29.4 pg (27.0-32.0); Mean Corpuscular Volume 90.6 fL (80-94); Mean Platelet Vol. 9.7 fl (6.2-12.0); Monocyte% 8.7 % (0-10); NRBC Flagged by Analyzer 0 % (0-5); Neutrophil # 3.41 X10^3/uL (2.7-7.7); Neutrophil % 59.1 % (47-70); Platelet Count 169 K/mm3 (150-450); RBC Distribution Width CV 12.9 % (11.6-14.6); RBC Distribution Width SD 42.8 fl (35.1-43.9); Red Blood Count 5.31 M/mm3 (4.6-6.2); White Blood Count 5.8 K/mm3 (4.4-11.0)
[2022-11-14 10:41] LABS: Vitamin D,25 Hydroxy 71.7 ng/mL
[2022-11-14 11:05] LABS: ALB/GLOB Ratio 1.1 RATIO (0.9-2.4); AST(SGOT) 19 U/L (15-37); Alanine Aminotransfer ALT/SGPT 27 U/L (16-61); Albumin, Serum 3.8 g/dL (3.2-5.0); Alkaline Phosphatase 90 U/L (45-117); Anion Gap 7 (5-15); BUN 24 mg/dL (7-18); BUN/Creat Ratio 17.3 RATIO (10-20); Calcium,Total 8.6 mg/dL (8.5-10.1); Chloride 109 mmol/L (98-107); Cholesterol 134 mg/dL (200); Creatinine, Serum 1.39 mg/dL (0.70-1.30); EST Glomerular Filtration Rate 53 mL/min (>60); Est Glom Filt Rate - Afr Amer 64 mL/min (>60); Globulin 3.5 g/dL (2.2-4.2); Glucose 107 mg/dL (74-106); High Density Lipoprotein 42 mg/dL; Potassium 4.2 mmol/L (3.5-5.1); Protein, Total 7.3 g/dL (6.4-8.2); Sodium Level 140 mmol/L (136-145); Thyroid Stim Hormone (TSH) 1.65 uIU/mL (0.358-3.74); Triglycerides 235 mg/dL; Uric Acid 6.4 mg/dL (3.5-7.2); Very Low Density Lipoprotein 47 mg/dL (5-40)
== END | disposition home or self-care (01) ==
LOC: MFPLAB 08:41
PROVIDERS: PCP Family Medicine; Visit Provider Family Medicine
DX: I12.9 Hypertensive chronic kidney disease with stage 1 through stage 4 chronic kidney disease, or unspecified chronic kidney disease (principal); N18.30 Chronic kidney disease, stage 3 unspecified; M10.9 Gout, unspecified; E78.00 Pure hypercholesterolemia, unspecified; E55.9 Vitamin D deficiency, unspecified
CPT/HCPCS: 36415; 80053; 80061; 82306; 83970; 84443; 84550; 85025

== ENCOUNTER → 2022-12-19 | Outpatient (CLI) | payer MEDICARE, SELFPAY ==
[2022-12-19 10:40] LABS: Anion Gap 3 (5-15); BUN 21 mg/dL (7-18); BUN/Creat Ratio 14.7 RATIO (10-20); Calcium,Total 8.5 mg/dL (8.5-10.1); Chloride 108 mmol/L (98-107); Creatinine, Serum 1.43 mg/dL (0.70-1.30); EST Glomerular Filtration Rate 51 mL/min (>60); Est Glom Filt Rate - Afr Amer 62 mL/min (>60); Glucose 110 mg/dL (74-106); PSA,Total- Diagnostic 4.36 ng/mL (0.0-4.0); Potassium 4.3 mmol/L (3.5-5.1); Sodium Level 139 mmol/L (136-145)
== END | disposition home or self-care (01) ==
LOC: MFPLAB 09:08
PROVIDERS: PCP Family Medicine; Visit Provider Family Medicine
DX: R97.20 Elevated prostate specific antigen [PSA] (principal)
CPT/HCPCS: 36415; 80048; 84153

== ENCOUNTER → 2023-02-12 | Outpatient (CLI) | payer MEDICARE, SELFPAY ==
[2023-02-12 08:14] LABS: Bacteria 0 SEEN /hpf (None Seen); Mucous, Urine 0 SEEN /hpf (<or=2+); Red Blood Cells-Urine 0 SEEN /hpf (0-5); Squamous Epithelial Cells - UA 0 SEEN /hpf (0-5); White Blood Cells 0 SEEN /hpf (0-5)
[2023-02-12 10:39] LABS: Absolute Lymphocyte Count 2.21 X10^3/uL (0.83-4.51); Absolute Neutrophil Count 3.3 X10^3/uL (2.0-7.7); Basophil# 0.05 X10^3/uL; Basophil% 0.8 % (0-1); Eosinophil# 0.14 X10^3/uL; Eosinophils% 2.2 % (0-5); Hematocrit 45.9 % (40-54); Hemoglobin 14.8 g/dL (13.0-16.5); Lymphocyte # 2.21 X10^3/ul (0.83-4.51); Lymphocyte % 35.1 % (19-41); Mean Corp Hgb Conc 32.2 g/dL (32-36); Mean Platelet Vol. 9.6 fl (6.2-12.0); Monocyte# 0.55 X10^3/uL; Monocyte% 8.7 % (0-10); NRBC Flagged by Analyzer 0 % (0-5); Neutrophil # 3.33 X10^3/uL (2.7-7.7); Neutrophil % 52.9 % (47-70); Platelet Count 173 K/mm3 (150-450); RBC Distribution Width CV 12.9 % (11.6-14.6); RBC Distribution Width SD 42.4 fl (35.1-43.9); White Blood Count 6.3 K/mm3 (4.4-11.0)
[2023-02-12 10:42] LABS: Color, Urine Yellow (Yellow); Glucose, Dipstick Normal (Normal); Ketone-Dipstick Negative (Negative); Leukocyte Esterase-Dipstick 25 /ul (Negative); Nitrite-Dipstick Negative (Negative); Occult Blood-Urine Negative /ul (Negative); Protein-Dipstick 30 mg/dl (Negative); Specific Gravity, Urine 1.025 (1.002-1.030); Urine Clarity Clear (Clear); Urine Urobilinogen 1 mg/dl (Normal)
[2023-02-12 10:48] LABS: Urine Bilirubin Dipstick 1 mg/dL (Negative)
[2023-02-12 10:54] LABS: PTHIN 113.6 pg/mL (18.4-80.1)
[2023-02-12 10:57] LABS: Vitamin D,25 Hydroxy 78.5 ng/mL
[2023-02-12 11:08] LABS: AST(SGOT) 17 U/L (15-37); Alanine Aminotransfer ALT/SGPT 25 U/L (16-61); Albumin, Serum 3.6 g/dL (3.2-5.0); Alkaline Phosphatase 81 U/L (45-117); Anion Gap 7 (5-15); BUN 25 mg/dL (7-18); BUN/Creat Ratio 15.7 RATIO (10-20); Calcium,Total 8.2 mg/dL (8.5-10.1); Chloride 109 mmol/L (98-107); Cholesterol 112 mg/dL (200); Creatinine, Serum 1.59 mg/dL (0.70-1.30); EST Glomerular Filtration Rate 45 mL/min (>60); Est Glom Filt Rate - Afr Amer 55 mL/min (>60); Globulin 3.7 g/dL (2.2-4.2); Glucose 102 mg/dL (74-106); High Density Lipoprotein 39 mg/dL; Potassium 4.1 mmol/L (3.5-5.1); Protein, Total 7.3 g/dL (6.4-8.2); Sodium Level 142 mmol/L (136-145); Triglycerides 146 mg/dL; Very Low Density Lipoprotein 29 mg/dL (5-40)
== END | disposition home or self-care (01) ==
LOC: MTLAB 08:07
PROVIDERS: PCP Family Medicine; Referring Provider Family Medicine; Visit Provider Family Medicine
DX: E21.3 Hyperparathyroidism, unspecified (principal); E55.9 Vitamin D deficiency, unspecified; I10 Essential (primary) hypertension; E78.00 Pure hypercholesterolemia, unspecified
CPT/HCPCS: 36415; 80053; 80061; 81001; 82306; 83970; 85025

== ENCOUNTER → 2023-05-03 | Outpatient (CLI) | payer MEDICARE, SELFPAY ==
--- NOTE | 2023-05-03 12:38 | RAD_ITS ---
STUDY: X-RAY - RIGHT ANKLE REASON FOR EXAM: Male, 77 years old. Rolled right ankle TECHNIQUE: 3 view(s) of the ankle. COMPARISON: None. FINDINGS: Normal visualized distal tibia and fibula. Old lateral malleolar fracture. Normal tibiotalar articulation and ankle mortise. Small plantar spur. The visualized subtalar, talonavicular, calcaneocuboid and tarsal articulations are normal. Lateral soft tissue swelling. RAD/Ankle min 3 Views IMPRESSION: Old avulsion fracture of the lateral malleolus with overlying soft tissue swelling. Small plantar spur. Electronically Signed: Teofilo Doshi MD at 13:12 EST ,
--- OUTSIDE RECORDS SUMMARY | 2023-05-03 18:53 | XMS RPT_ITS | CCD ---
Author Name Unknown Address [address] [place] [address] Organization [facility] Care Team Providers Care Group Home Counselor Name Role Phone Emma Gallego MD Primary Care Provider [phone] EMMA MOYA Attending Unavailable EMMA GALLEGO Primary Care Unavailable EMMA GALLEGO Referring Unavailable TAHMINA JARVIS Attending Unavailable TAHMINA JARVIS Referring Unavailable EMMA GALLEGO Primary Care Unavailable EMMA MOYA Attending Unavailable EMMA GALLEGO Primary Care Unavailable EMMA GALLEGO Referring Unavailable MARIKA TENA Attending Unavailable MARIKA TENA Referring Unavailable EMMA GALLEGO Primary Care Unavailable MARIKA TENA Attending Unavailable MARIKA TENA Referring Unavailable EMMA GALLEGO Primary Care Unavailable Allergies Allergy Classification Reported Allergen(s) Allergy Type Date of Onset Reaction(s) Facility (4 sources) Ibuprofen Drug Allergy 5 [facility] (4 sources) Lisinopril Drug Allergy 0 Cough [facility] (4 sources) *Seasonal Propensity to adverse reactions to substance 9 Runny Nose, Itchy Eyes, Sneezing [facility] Medications Current Medications Medication Drug Class(es) Dates Sig (Normalized) Sig (Original) acetaminophen 325 mg / oxyCODONE hydrochloride 5 mg oral tablet (2 sources) Opioid Agonist Start: 05-19-2019 take 1 tablet by mouth every six hours as needed oxyCODONE-acetaminophen (Percocet) 5-325 MG per tablet Indications: Hyperparathyroidism Take 1 tablet by mouth every 6 hours as needed for up to 3 days. 5 tablet 0 05/19/2019 Active albuterol 0.83 mg/ml inhalation solution (4 sources) beta2-Adrenergi c Agonist take 2.5 mg by inhalation every six hours as needed albuterol (2.5 MG/3ML) 0.083% inhalation solution Take 3 mL by nebulization every 6 hours as needed. 0 Active Completed/Discontinued Medications Medication Drug Class(es) Dates Sig (Normalized) Sig (Original) Hydrocortisone (3 sources) Corticosteroid End: 06-15-2022 Hydrocortisone Acetate (ANUSOL HC-1 EX) Apply 2.5 % topically as needed. 0 06/15/2022 Discontinued (Medication Reconciliation (suppress cancel msg)) Problems Active Problems Problem Classification Problem Date Documented Date Episodic/Chronic Chronic kidney disease (4 sources) Chronic kidney disease stage 3; Translations: [Chronic kidney disease (CKD), stage III (moderate)] 04-08-2019 Chronic Esophageal disorders (4 sources) Gastroesophageal reflux disease; Translations: [Gastro-esophageal reflux disease without esophagitis] 04-08-2019 Chronic Essential hypertension (4 sources) Benign essential hypertension; Translations: [Essential (primary) hypertension] 04-08-2019 Chronic Other endocrine disorders (4 sources) Hyperparathyroidism; Translations: [Hyperparathyroidism, unspecified] Onset: 01-28-2019 05-19-2019 Chronic Other lower respiratory disease (4 sources) H/O: asthma; Translations: [Personal history of other diseases of the respiratory system] 04-08-2019 Episodic Other nutritional; endocrine; and metabolic disorders (4 sources) Obese class I; Translations: [Obesity, unspecified] Onset: 01-28-2019 01-28-2019 Chronic Residual codes; unclassified (4 sources) H/O: vertigo; Translations: [Personal history of other specified conditions] 04-08-2019 Episodic Thyroid disorders (8 sources) Multinodular goiter; Translations: [Nontoxic multinodular goiter] Onset: 06-21-2021 Chronic Past or Other Problems Problem Classification Problem Date Documented Da te Episodic/Chronic Mood disorders (4 sources) Mood disorders Onset: 06-21-2021 Resolved: 06-15-2022 06-21-2021 Results Test Name Value Interpretation Reference Range Facil ity Vital Signs Date Time Vital Sign Value Performing Clinician Noemi lity 06-15-2022 13:19-0400 Body height 177.8 cm Emma Moya MD Work Phone: [phone] [place] [address] 06-15-2022 13:19-0400 Body mass index (BMI) [Ratio] 31.71 kg/m2 Emma Moya MD Work Phone: [phone] [place] [address] 06-15-2022 13:19-0400 Body temperature 98.29 [degF] Emma Moya MD Work Phone: [phone] [place] [address] 06-15-2022 13:19-0400 Body weight 100.25 kg Emma Moya MD Work Phone: [phone] [place] [address] 06-15-2022 13:19-0400 Diastolic blood pressure 77 mm[Hg] Emma Moya MD Work Phone: [phone] [place] [address] 06-15-2022 13:19-0400 Heart rate 61 /min Emma Moya MD Work Phone: [phone] [place] [address] 06-15-2022 13:19-0400 Respiratory rate 16 /min Emma Moya MD Work Phone: [phone] [place] [address] 06-15-2022 13:19-0400 SaO2% (BldA) [Mass fraction] 96 % Emma Moya MD Work Phone: [phone] [place] [address] 06-15-2022 13:19-0400 Systolic blood pressure 141 mm[Hg] Emma Moya MD Work Phone: 7([phone] [place] [address] 06-21-2021 14:14-0400 Body height 177.8 cm Emma Moya MD Work Phone: [phone] [place] [address] 06-21-2021 14:14-0400 Body mass index (BMI) [Ratio] 32.21 kg/m2 Emma Moya MD Work Phone: [phone] [place] [address] 06-21-2021 14:14-0400 Body temperature 98.29 [degF] Emma Moya MD Work Phone: 5([phone] [place] [address] 04-05-2022 14:14-0400 Body weight 101.83 kg Emma Moya MD Work Phone: [facility] 06-21-2021 14:14-0400 Diastolic blood pressure 64 mm[Hg] Emma Moya MD Work Phone: [facility] 06-21-2021 14:14-0400 Heart rate 65 /min Emma Moya MD Work Phone: [facility] 06-21-2021 14:14-0400 Respiratory rate 16 /min Emma Moya MD Work Phone: [facility] 06-21-2021 14:14-0400 SaO2% (BldA) [Mass fraction] 95 % Emma Moya MD Work Phone: [facility] 06-21-2021 14:14-0400 Systolic blood pressure 136 mm[Hg] Emma Moya MD Work Phone: [facility] Encounters Encounter Date Encounter Type Care Provider Facility Start: 06-15-2022 End: 06-15-2022 Office outpatient visit 15 minutes Emma Moya MD Work Phone: Division of Surgical Oncology Procedures Date Procedure Procedure Detail Performing Clinician Start: 06-15-2022 Follow-up visit Follow-up EMMA MOYA Start: 06-21-2021 Us soft tissue head & neck real time imge robles Jarvis MECHANICAL PLANNER-ABATTOIR SUPERVISOR Work Phone: Plan of Treatment Date Care Activity Detail Author Start: 12-03-2024 Tetanus vaccination TETANUS [facility] Start: 11-17-2022 Influenza vaccination INFLUENZ A VACCINE (Season Ended) [facility] Start: 06-21-2022 End: 06-21-2022 US Thyroid gland US THYROID Imaging Routine Thyroid nodule Expected: 06/21/2022, Expires: 06/21/2022 [facility] Immunizations Immunization Date Immunization Notes Care Provider Uzair woods 12-31-2020 influenza virus vaccine, unspecified formulation Marika Tena MECHANICAL PLANNER-ABATTOIR SUPERVISOR Work Phone: [facility] 05-13-2020 COVID-19 vaccine, MR GUME, Veronica, 0.3 ML Tahmina Jarvis MECHANICAL PLANNER-ABATTOIR SUPERVISOR Work Phone: [facility] Work Phone: 04-22-2020 COVID-19 vaccine, MR DUNAWAY, Veronica, 0.3 ML Tahmina Walkersh MECHANICAL PLANNER-ABATTOIR SUPERVISOR Work Phone: [facility] Work Phone: 04-13-2008 zoster vaccine, unspecified formulation Marika Tena MECHANICAL PLANNER-ABATTOIR SUPERVISOR Work Phone: [facility] Payers Date Payer Category Payer Medicare MEDICARE [employer] [place] MEDICARE [employer] PPO [id number] 2021-Present [address] [place] [address] [id number] 2021 Medicare [id number] 1945 Unknown [id number] 1945 Unknown [id number] 1945 Unknown [id number] 1945 Unknown [id number] 1945 Unknown [id number] Social History Date Type Detail Facility Start: 01-28-2019 Tobacco smoking stat [facility] Never smoked tobacco [facility] Start: 01-28-2019 Tobacco use and exposure Smokeless tobacco non-user [facility] Start: 06-21-2021 End: 06-15-2022 Alcohol intake Current drinker of alcohol (finding) [facility] Start: 06-21-2021 End: 06-15-2022 Alcohol intake [facility] Start: 01-28-2019 History SDOH Alcohol Frequency 4 [facility] Start: 1945 Sex Assigned At Not on file O [facility] Start: 06-11-2021 End: 06-21-2021 Exposure to SARS-CoV-2 (event) Not sure [facility] History of Present illness Narrative 06-15-2022 Ally Jaramillo, MECHANICAL PLANNER-ABATTOIR SUPERVISOR - 06/15/2022 2:30 PM EDT Note Date & Type Note Facility 06-15-2022 History of Present illness Narrative Chief Complaint: No chief complaint on file. History of Present Illness: Mr. Whitfield is a 76 y.o. male with a history of with thyroid nodules, which were found during work up for his parathyroid. He presents to [facility] clinic for follow up with US. He underwent parathyroidectomy with Dr. Moya on 06/06/19. Mr. Whitfield is here today for his appointment. He complains of some arthritis in his knee and hands. He denies any change in his voice. Denies dysphagia, or positional dyspnea. Denies any new nodules or other lumps in his neck. Allergies Allergen Reactions Lisinopril Cough Grass [*Seasonal] Runny Nose, Itchy Eyes and Sneezing Ibuprofen UPSET STOMACH Current Outpatient Medications Medication Sig Dispense Refill albuterol (2.5 MG/3ML) 0.083% inhalation solution Take 2.5 mg by nebulization every 6 hours as needed. Alfuzosin HCl 10 MG Tab SR 24 HR Take by mouth. amLODIPine 10 MG tablet Take 10 mg by mouth daily every morning. 0 calcium-vitamin D 500-200 MG-UNIT tablet Take 2 tablets by mouth 2 times daily. (Patient not taking: No sig reported) 90 tablet 7 ergocalciferol 1.25 MG (75185 UT) capsule Take 1 capsule by mouth once a week. (Patient not taking: Reported on 06/21/2021) 8 capsule 0 Hydrocortisone Acetate (ANUSOL HC-1 EX) Apply 2.5 % topically as needed. (Patient not taking: Reported on 06/21/2021) metoprolol succinate 100 MG tablet XL Take 50 mg by mouth daily every morning. Mometasone Furoate (ASMANEX HFA IN) Inhale. omeprazole [address] capsule Take 20 mg by mouth every other day. In the morning oxyCODONE-acetaminophen (Percocet) 5-325 MG per tablet Take 1 tablet by mouth every 6 hours as needed for up to 3 days. 5 tablet 0 rosuvastatin 20 MG tablet Take 20 mg by mouth daily. No current facility-administered medications for this visit. Review of Systems: A 12-point review of systems was performed and was negative except those areas included within the history of present illness. Physical Exam: Smoking Status Never General: alert, cooperative, no distress, appears stated age Neck: Supple, non-tender. No masses or lymphadenopathy noted. Derm: Skin is warm and dry. She is not diaphoretic. Radiographic evaluation: US completed in radiology with images reviewed by Dr Moya EXAM: US THYROID, 06/15/2022 12:39 PM CLINICAL INDICATIONS: thyroid nodules E04.1:Thyroid nodule COMPARISON: Compared to prior study dated June 21, 2021 TECHNIQUE: Real-time, grayscale ultrasound evaluation of the neck was performed in transverse and longitudinal orientations using a high-resolution linear array transducer. Color Doppler was utilized to assess vascular flow. FINDINGS: Background thyroid parenchyma is heterogeneous without increased flow. The right lobe measures 5.4 x 1.7 x 1.8 cm and the left lobe measures 5.3 x 1.5 x 1.7 cm. The isthmus measures 4 mm. Previously identified cyst in the left upper pole is not well seen on the current exam. Thyroid nodule(s) as follows: Nodule # 1 : Right mid Size: 1.3 x 1.2 x 0.9 cm, previously 1.2 x 1.1 x 0.9 cm Composition: mixed solid and cystic (1 point) Echogenicity: Hyperechoic or isoechoic (1 point) Shape: Skxqy-vygu-urnp (0 points) Margin: Smooth (0 points) Echogenic Foci: None or large comet-tail artifacts (0 points) TI-RADS* score: TR2 (2 points)- Not suspicious. No FNA or recommended imaging follow-up Nodule # 2 : Right mid Size: 0.5 x 0.5 x 0.4 cm, previously 0.5 x 0.5 x 0.4 cm Composition: Solid or almost completely solid (2 points) Echogenicity: Hyperechoic or isoechoic (1 point) Shape: Qengl-ijir-xkon (0 points) Margin: Smooth (0 points) Echogenic Foci: None or large comet-tail artifacts (0 points) TI-RADS* score: TR3 (3 pts)- Mildly Suspicious. No FNA or recommended imaging follow-up Nodule # 3 : Left superior Size: 0.6 x 0.4 x 0.4 cm, previously 0.6 x 0.4 x 0.3 cm Composition: mixed solid and cystic (1 point) Echogenicity: Hyperechoic or isoechoic (1 point) Shape: Pzstr-vomy-aagh (0 points) Margin: Smooth (0 points) Echogenic Foci: None or large comet-tail artifacts (0 points) TI-RADS* score: TR2 (2 points)- Not suspicious. No FNA or recommended imaging follow-up IMPRESSION IMPRESSION: Small bilateral thyroid nodules not significantly changed in size or appearance since June 21, 2021. Nodules do not meet size criteria for FNA or surveillance. * Lesions are classified using ACR TI-RADS. (JACR July 2016) Assessment Mr. Whitfield is a 76 y.o. male with thyroid nodules. US completed today stable awaiting radiology reading. Plan Patient seen and evaluated by myself and , all available relevant imaging and labs reviewed, and the plan was developed collaboratively. 1. RTC in 2 years with US prior to appointment See Dr. Moya's portion of the note for more information. All questions were answered to the patient's satisfaction. He was instructed to call the office if they had further questions. Ally Jaramillo APRN-MIRACLE Nurse Practitioner, Surgical Oncology Attestation: The patient was seen and examined with my Advanced Practice Provider. I agree with their history, exam, assessment, and plan. I have edited their note. Doing well. Very appreciative of care. In clinic with his . On US, his nodules are stable. I would recommend FU in 2 years with an US at that time. He should return sooner for any new local compressive symptoms. documented in this encounter [facility] Instructions 06-15-2022 Patient Instructions Note Date & Type Note Facility 06-15-2022 Instructions BHAVYA Araya - 06/15/2022 2:30 PM EDT US prior to appointment documented in this encounter [facility] History of Present illness Narrative 06-21-2021 BHAVYA Disla - 06/21/2021 2:30 PM EDT Note Date & Type Note Facility 06-21-2021 History of Present illness Narrative Chief Complaint: Chief Complaint Patient presents with Follow-up Here to review neck ultrasound. Patient complaining about fatigue History of Present Illness: Mr. Whitfield is a 75 y.o. male with thyroid nodules, which were found during work up for his parathyroid. He presents to [facility] clinic for follow up, with US in radiology prior. He underwent parathyroidectomy with Dr. Moya on 05/19/2019. Mr. Whitfield is here today with his for his appointment. He has no new complaints. He denies any change in his voice. Denies dysphagia, or positional dyspnea. Denies any new nodules or other lumps in his neck. Charis Whitfield is not currently taking Calcium supplementation. Allergies Allergen Reactions Lisinopril Cough Grass [*Seasonal] Runny Nose, Itchy Eyes and Sneezing Ibuprofen UPSET STOMACH Current Outpatient Medications Medication Sig Dispense Refill albuterol (2.5 MG/3ML) 0.083% inhalation solution Take 2.5 mg by nebulization every 6 hours as needed. Alfuzosin HCl 10 MG Tab SR 24 HR Take by mouth. amLODIPine 10 MG tablet Take 10 mg by mouth daily every morning. 0 metoprolol succinate 100 MG tablet XL Take 50 mg by mouth daily every morning. omeprazole [address] capsule Take 20 mg by mouth every other day. In the morning rosuvastatin 20 MG tablet Take 20 mg by mouth daily. calcium-vitamin D 500-200 MG-UNIT tablet Take 2 tablets by mouth 2 times daily. (Patient not taking: No sig reported) 90 tablet 7 ergocalciferol 1.25 MG (83271 UT) capsule Take 1 capsule by mouth once a week. (Patient not taking: Reported on 06/21/2021) 8 capsule 0 Hydrocortisone Acetate (ANUSOL HC-1 EX) Apply 2.5 % topically as needed. (Patient not taking: Reported on 06/21/2021) Mometasone Furoate (ASMANEX HFA IN) Inhale. oxyCODONE-acetaminophen (Percocet) 5-325 MG per tablet Take 1 tablet by mouth every 6 hours as needed for up to 3 days. 5 tablet 0 No current facility-administered medications for this visit. Review of Systems: General ROS: negative for - chills, fever or weight loss Cardiovascular ROS: no chest pain or dyspnea on exertion Respiratory ROS: no cough, shortness of breath, or wheezing Gastrointestinal ROS: no abdominal pain, change in bowel habits, or black or bloody stools Dermatological ROS: negative Physical Exam: Wt Readings from Last 3 Encounters: 06/21/21 101.8 kg (224 lb 8 oz) 06/22/20 99.8 kg (220 lb) 04/08/19 89.9 kg (198 lb 1.6 oz) BP 136/64 (BP Location: Left arm, BP Position: Sitting) Pulse 65 Temp 98.3 F (36.8 C) (Oral) Resp 16 Ht 1.778 m (5' 10 ) Wt 101.8 kg (224 lb 8 oz) SpO2 95% BMI 32.21 kg/m Smoking Status Never Smoker General: alert, cooperative, no distress, appears stated age Cardio: regular rate and rhythm, S1, S2 normal, no murmur, click, rub or gallop Pulmonary: clear to auscultation bilaterally Laboratory evaluation: Lab Results Component Value Date SODIUM 140 04/08/2019 POTASSIUM 4.5 04/08/2019 CHLORIDE 106 04/08/2019 CO2 29 04/08/2019 BUN 20 04/08/2019 CREATSERUM 1.47 (H) 04/08/2019 Lab Results Component Value Date WBC 5.04 04/08/2019 HGB 15.3 04/08/2019 HCT 46.1 04/08/2019 PLATELET 192 04/08/2019 MCV 91.3 04/08/2019 No results found for: ALT, TRANSFERASEA, AST, GGT, GAMMAGT, ALKPHOS, BILITOTAL, BILIDIRECT No results found for: TSH, BYF52OMK, XYI48SDO, TSHBASELINE, TSHULTRASEN, T3FREE, A3UYXYGHA, V5WAVPP, W4VQURVQ, T4FREE, TPOAB Lab Results Component Value Date PTH 44.2 05/19/2019 CALCIUM 12.0 (H) 04/08/2019 Radiographic evaluation: US thyroid today: reviiewed Assessment Mr. Whitfield is a 75 y.o. male with thyroid nodules. Plan Patient seen and evaluated by myself and , all available relevant imaging and labs reviewed, and the plan was developed collaboratively. 1. RTC one year with US in radiology prior Orders Placed This Encounter US THYROID See Dr. Moya's portion of the note for more information. All questions were answered to the patient's satisfaction. He was instructed to call the office if they had further questions. Marika Tena APRN-MIRACLE Nurse Practitioner, Surgical Oncology Attestation: The patient was seen and examined with my Nurse Practitioner. I agree with her history, exam, assessment, and plan. I have edited her note. Overall doing well with no new complaints. Appreciative of care here. Reviewed US report. FU in one year with another US. FU sooner for new local compressive symptoms. EXAM: US THYROID, 06/21/2021 12:37 PM CLINICAL INDICATIONS: Multiple bilateral thyroid nodules please compare to previous. E04.2:Multiple thyroid nodules COMPARISON: Thyroid sonogram, 06/22/2020. TECHNIQUE: Real-time, grayscale ultrasound evaluation of the neck was performed in transverse and longitudinal orientations using a high-resolution linear array transducer. Color Doppler was utilized to assess vascular flow. FINDINGS: Background thyroid parenchyma is homogeneous . The right lobe measures 5.2 x 1.7 x 1.8 cm and the left lobe measures 5.4 x 1.5 x 1.6 cm. The isthmus is normal in appearance and measures 3 mm. Lesions are seen in both lobes of the thyroid. Pasta Press Operator lesions include: Right lobe: * Heterogeneous partially cystic somewhat spongiform nodule in the mid right thyroid measures 1.3 x 0.8 x 1.1 cm, (previously measuring 1.2 x 0.8 x 1.0 cm). No microcalcifications are identified within this nodule. Color Doppler demonstrates mild internal vascularity. - GRUPO classification: Low suspicion. Nodule does not meet GRUPO size criteria for tissue sampling. * Heterogeneous partially cystic nodule in the inferior right thyroid measures 0.5 x 0.4 x 0.5 cm, (previously measuring 0.4 x 0.4 x 0.6 cm). No microcalcifications are identified within this nodule. Color Doppler demonstrates no significant internal vascularity. - GRUPO classification: Low suspicion. Left lobe: * Spongiform nodule in the superior left thyroid measures 0.5 x 0.3 x 0.4 cm, (previously measuring 0.4 x 0.3 x 0.4 cm). No microcalcifications are identified within this nodule. Color Doppler demonstrates no significant internal vascularity. - GRUPO classification: Very low suspicion. * Stable cyst nodule in the superior left thyroid measures 5 mm, (previously measuring 5 mm). - GRUPO classification: Benign. * Hypoechoic nodule in the superior left thyroid measures 0.4 x 0.3 x 0.3 cm, (previously measuring 0.4 x 0.2 x 0.4 cm). No microcalcifications are identified within this nodule. Color Doppler demonstrates no significant internal vascularity. - GRUPO classification: Intermediate suspicion. IMPRESSION IMPRESSION: 1. Normal sized thyroid with normal vascularity. 2. Several nodules in both lobes most of which are low or very low suspicion, or benign. These have not significantly changed from the prior exam. 3. One intermediate suspicion nodule in the left lobe is stable and below size threshold for tissue sampling. Follow-up as clinically indicated. * Lesions are classified using the [place] [employer] guidelines of 2015. (Thyroid, Volume 26, #1, 2016) documented in this encounter [facility] Progress note 05-14-2020 Note Date & Type Note Facility 05-14-2020 Note HNO ID: [id number] Author: Becca Olea Service: ? Author Type: Physician Educational Adviser Type: Progress Notes Filed: 05/20/2020 1:24 AM Note Text: In lieu of an in-person visit due to COVID-19 concerns, a virtual visit was performed on the patient. Patient is aware that I am not fully able to assess symptoms and do a full physical examination including vital signs assessment at this time. Patient consents to this encounter. Some issues were encountered with video during visit, but visit was partially completed with video capability FOLLOW UP VISIT - ENDOSCOPY NAME: Charis Whitfield CLINIC NO.: [id number] DATE OF SERVICE: 05/14/2020 : 1945 REFERRING PHYSICIAN: Emma Gallego MD Charis is a patient I am following for screening colonoscopy and history of polyps, as well as history of colon resection for diverticular disease. Dr. Mercer performed lower endoscopy on 05/06/2020. The patient was found to have a patent end-to-end colo-rectal anastomosis, characterized by healthy-appearing mucosa, diverticulosis in the descending colon, and a 7 mm polyp in the mid descending colon which was removed. Pathology demonstrated: FINAL DIAGNOSIS Colon, descending, polypectomy - Tubular adenoma. ? KL/glw 05/07/2020 The patient notes no complaints since the procedure. Assessment IMPRESSION: s/p co;lonoscopy with polypectomy, tubular adenoma PLAN: The operative findings and pathology report were reviewed with the patient, and the patient has had the opportunity to ask questions and have questions answered. If the patient notes any problems or changes in bowel function, the patient should contact me immediately. Otherwise I recommend follow up endoscopy in 5 years. HM updated and recall letter generated. Patient verbalized understanding of all above and agreed with the plan Diagnoses: (D12.6) Tubular adenoma of colon (primary encounter diagnosis) I spent a total of 20 minutes on the date of the service which included preparing to see the patient, [id number] patient care, completing clinical documentation, obtaining and/or reviewing separately obtained history, independently interpreting results (not separately reported) and communicating results to the patient/family/caregiver. Becca Olea PA-C [facility] Progress note 04-14-2020 Note Date & Type Note Facility 04-14-2020 Note HNO ID: [id number] Author: Becca Olea Service: ? Author Type: Physician Educational Adviser Type: Progress Notes Filed: 04/14/2020 3:40 PM Note Text: HISTORY AND PHYSICAL Charis Armin 1945 REFERRING PHYSICIAN: Emma Ponce MD CHIEF COMPLAINT: Consult HPI: The patient is a 74 year old male referred for endoscopy. Charis notes a personal history of colon polyps and is overdue for surveillance colonoscopy. Patient denies any change in bowel habits, weight changes, blood in stools, black tarry stools or abdominal pain. denies family history of colon issues. The patient notes no upper GI complaints currently. Charis has undergone prior endoscopy. Patient underwent upper and lower endoscopy by Dr. Tamra Norton on 11/08/10. She was found to have diverticulosis and a 5 mm polyp in the rectum which was removed. EGD showed a regular Z-line, negative for Barretts, and a small sliding hiatal hernia. Colon polyp returned as a tubular adenoma and 5 year follow up colonoscopy was recommended. Patient's past medical history is significant for diverticulosis, renal insufficiency, hyperlipidemia, asthma, hypertension, gout, hyperparathyroidism. He had a parathyroidectomy in [place] last year for parathyroid adenoma. Patient follows with Dr. Gallego for his chronic medical conditions, most recent office visit note from 03/30/20 reviewed. He denies any chest pain or shortness of breath. Denies problems with sedation in the past. PAST MEDICAL HISTORY Diagnosis Date - Abdominal pain, left lower quadrant - Allergic rhinitis, cause unspecified Allergic rhinitis - asthma - Diverticulitis of colon (without mention of hemorrhage)(562.11) - Diverticulosis of colon (without mention of hemorrhage) Diverticulosis - Elevated glucose - Essential hypertension - Gout - Hepatitis, unspecified - Hyperparathyroidism, unspecified (HCC) - Other disorders of ear(388.8) family hearing loss, ear trauma in [employer] - Pure hypercholesterolemia - Scarlet fever scarletina - Stage 3 chronic kidney disease (HCC) - Unspecified essential hypertension - Viral pneumonia, unspecified Pneumonia VIRAL - Vitamin D deficiency PAST SURGICAL HISTORY Procedure Laterality Date - APPENDECTOMY,W OTHR PROC 03/02/2008 - COLONOSCOP W/ OR W/O BRSH SPEC 06/29/2004 Colonoscopy - COLONOSCOPY GEN ANES 2010 - MOBILIZE SPLENIC FLEX 03/02/2008 - PART REMOVAL COLON W COLOPROCTOSTOMY 03/02/2008 - PAST SURGICAL HISTORY OF WISDOM TEETH - PAST SURGICAL HISTORY OF 2019 para thyroid removal - PAST SURGICAL HISTORY OF Left shoulder surgery, spurs, rotator cuff - PAST SURGICAL HISTORY OF 2007 suspicious bladder lesion removed - REMOVAL ADENOIDS,PRIMARY,<12 Y/O Adenoidectomy - REMOVAL OF TONSILS,<12 Y/O Tonsillectomy - SIGMOIDOSCOPY FLEX DIAG 03/02/2008 Current Outpatient Medications Medication Sig - alfuzosin SR (UROXATRAL) 10 mg 24 hr tablet Take 10 mg by mouth once daily. - amLODIPine (NORVASC) 10 mg tablet Take 10 mg by mouth. - OTC PRODUCT 25 mcg once daily. Vitamin D3 - rosuvastatin (CRESTOR) 10 mg tablet Take 10 mg by mouth daily at bedtime. - allopurinol (ZYLOPRIM) 100 mg tablet Take 300 mg by mouth once daily. - cetirizine (ZYRTEC) 10 mg ORAL tablet Take 1 tablet by mouth once daily. - omeprazole(PRILOSEC 20 MG CAP) Take one(1) capsule daily. - METOPROLOL SR 100 MG 24 HR TAB takes 1/2 daily - Fluorouracil (EFUDEX) 5 % cream apply daily as directed for 3-4 weeks --scalp, face, and ears (Patient not taking: Reported on 04/12/2020 ) - Mometasone (ASMANEX TWISTHALER) 220 mcg (120 doses) INHALATION AePB Inhale as instructed. - ranitidine 150 mg ORAL tablet Take 1 tablet by mouth twice daily as needed. (Patient not taking: Reported on 04/12/2020 ) - metroNIDAZOLE (METROGEL) 1 % TOPICAL gel Apply a thin amount to face once daily (Patient not taking: Reported on 04/12/2020 ) - simvastatin (ZOCOR) 20 mg ORAL tablet Take one(1) tablet daily at bedtime. - FLUOROURACIL 2 % TOPICAL SOLN Apply to affected area forehead and scalp once daily for 3-4 weeks (Patient not taking: FOR EXTERNAL USE ONLY. Apply to ) - TRIAMTERENE-HYDROCHLOROTHIAZIDE 37.5 MG-25 MG CAP No current facility-administered medications for this visit. ALLERGIES: Ibuprofen PERSONAL HISTORY: Social History Tobacco Use - Smoking status: Former Smoker - Smokeless tobacco: Never Used - Tobacco comment: Smoked socially Substance Use Topics - Alcohol use: Yes Comment: social - Drug use: No FAMILY HISTORY: FAMILY HISTORY Problem Relation Age of Onset - GERD Mother - Hearing Loss Mother - Cancer Mother sinus - Hypertension Mother - GERD Father - Skin Cancer Father - other (pulmonary emb) Father - Hypertension Brother - Hypertension Brother - DVT Brother REVIEW OF SYMPTOMS: The review of systems data was entered by the nurse and reviewed by nc Nursing Notes: Laci Norman 04/12/2020 5:00 (more content not included)... [facility] Evaluation note Note Date & Type Note Facility documented in this encounter [facility] Evaluation note Note Date & Type Note Facility documented in this encounter [facility] Evaluation note Note Date & Type Note Facility documented in this encounter [facility] Evaluation note Note Date & Type Note Facility documented in this encounter [facility] Summary Purpose Family History No Family History Records FoundNo Family History Records FoundNo Family History Records Found Advance Directives No Advanced Directives Records FoundNo Advanced Directives Records FoundNo Advanced Directives Records Found Reason for Referral Specialty Diagnoses / Procedures Referred By Contac t Referred To Contact Diagnoses Multiple thyroid nodules Procedures US THYROID Tahmina Jarvis MECHANICAL PLANNER-ABATTOIR SUPERVISOR [address] [facility] [address] [place] [address] Referral ID Status Reason Start Date Expiration Date V isits Requested Visits Authorized [id number] Pending Review 06/22/2020 07/17/2021 1 1 Specialty Diagnoses / Procedures Referred By Contac t Referred To Contact Diagnoses Thyroid nodule Procedures US THYROID Marika Tena MECHANICAL PLANNER-ABATTOIR SUPERVISOR [address] [place] [address] Referral ID Status Reason Start Date Expiration Date V isits Requested Visits Authorized [id number] New Request 06/21/2021 07/16/2022 1 1 Specialty Diagnoses / Procedures Referred By Contac t Referred To Contact Diagnoses Thyroid nodule Procedures US THYROID Marika Tena MECHANICAL PLANNER-ABATTOIR SUPERVISOR [address] [place] [address] Additional Source Comments (unrecognized sect ion and content) No Status Records FoundNo Status Records FoundNo Status Records Found INFORMATION SOURCE (unrecogn ized section and content) DATE CREATED AUTHOR AUTHOR'S ORGANIZ ATION 04/10/2021 [facility] DATE CREATED AUTHOR AUTHOR'S ORGANIZ ATION 06/20/2022 [facility] Reason for Visit (unrecogniz ed section and content) Referral ID Status Reason Start Date Expiration Date V isits Requested Visits Authorized [id number] Pending Review 06/22/2020 07/17/2021 1 1 Reason Comments Follow-up Here to review neck ultrasound. Patient complaining about fatigue Specialty Diagnoses / Procedures Referred By Contac t Referred To Contact Diagnoses Thyroid nodule Procedures US THYROID Marika Tena, MECHANICAL PLANNER-ABATTOIR SUPERVISOR [address] [place] [address] Referral ID Status Reason Start Date Expiration Date V isits Requested Visits Authorized [id number] New Request 06/21/2021 07/16/2022 1 1 Reason Comments Follow-up US completed prior t o apptNew arthritis left knee and left hand knuckle area Care Teams (unrecognized sec tion and content) Group Home Counselor Relationship Specialty Start Date End Date Emma Gallego MD PCP - General Family Medicine 01/28/19 Group Home Counselor Relationship Specialty Start Date End Date Emma Gallego MD PCP - General Family Medicine 01/28/19 Group Home Counselor Relationship Specialty Start Date End Date Emma Gallego MD PCP - General Family Medicine 01/28/19 FOR RECORDS PERTAINING TO PATIENTS WHO ARE OR HAVE BEEN ENROLLED IN A CHEMICAL DEPENDENCY/SUBSTANCEABUSE PROGRAM, SOME INFORMATION MAY BE OMITTED. This clinical summary was aggregated from multiple sources. Caution should be exercised in using it in the provision of clinical care. This summary normalizes information from multiple sources, and as a consequence, information in this document may materially change the coding, format and clinical context of patient data. In addition, data may be omitted in some cases. CLINICAL DECISIONS SHOULD BE BASED ON THE PRIMARY CLINICAL RECORDS. [facility]. provides no warranty or guarantee of the accuracy or completeness of information in this document.
== END | disposition home or self-care (01) ==
LOC: MTRAD 12:38
PROVIDERS: PCP Family Medicine; Referring Provider Physician Assistant Surgical; Visit Provider Physician Assistant Surgical
DX: S96.911A Strain of unspecified muscle and tendon at ankle and foot level, right foot, initial encounter (principal)
CPT/HCPCS: 73610

== ENCOUNTER → 2023-05-15 | Outpatient (CLI) | payer MEDICARE, SELFPAY ==
--- NOTE | 2023-05-15 09:30 | RAD_ITS ---
INDICATION: lumbar radiculopathy EXAMINATION/TECHNIQUE: X-RAY - XR Spine Lumbar Min 4 Views COMPARISON: Prior study dated: 03/03/2020 FINDINGS: VERTEBRAE: Preserved vertebral body height. No fracture. No spondylolisthesis. Preservation of the normal lumbar lordosis. Mild diffuse facet arthropathy. DISCS: Mild disc space narrowing throughout with endplate osteophytes present. INCLUDED ABDOMEN: Included bowel gas pattern is non-obstructive. RAD/L/S Spine Min 4 Views IMPRESSION: No evidence of lumbar spinal fracture or spondylolisthesis. Mild degenerative change throughout. Electronically Signed: Farhan Quintana MD at 0:27 EST ,
--- OUTSIDE RECORDS SUMMARY | 2023-05-15 10:27 | XMS RPT_ITS | CCD ---
Author Name Unknown Address [address] [place] [address] Organization [facility] Care Team Providers Care Coin Box Inspector Name Role Phone Emma Gallego MD Primary Care Provider [phone] EMMA MOYA Attending Unavailable EMMA GALLEGO Primary [...] Facility (4 sources) Ibuprofen Drug Allergy 5 [facility] (4 sources) Lisinopril Drug Allergy 0 Cough [facility] (4 sources) *Seasonal Propensity to adverse reactions to substance 9 Runny Nose, Itchy Eyes, Sneezing [facility] Medications Current Medications Medication Drug Class(es) Dates [...] 06-15-2022 13:19-0400 Body height 177.8 cm Emma oMya MD Work Phone: [phone] [place] [address] 06-15-2022 13:19-0400 Body mass index (BMI) [Ratio] 31.71 kg/m2 Emma Moya MD Work Phone: [phone] [place] [address] 06-15-2022 13:19-0400 Body temperature 98.29 [degF] Emma Moya MD Work Phone: [phone] [place] [address] 06-15-2022 13:19-0400 Body weight 100.25 kg Emma Moya MD Work Phone: [phone])440-639515 [place] [address] 06-15-2022 13:19-0400 Diastolic blood pressure 77 mm[Hg] Emma Moya MD Work Phone: [phone] [place] [address] 06-15-2022 13:19-0400 Heart rate 61 /min Emma Moya MD Work Phone: [phone] [place] [address] 06-15-2022 13:19-0400 Respiratory rate 16 /min Emma Moya MD Work Phone: [phone] [place] [address] 06-15-2022 13:19-0400 SaO2% (BldA) [Mass fraction] 96 % Emma Moya MD Work Phone: [phone] [place] [address] 06-15-2022 13:19-0400 Systolic blood pressure 141 mm[Hg] Emma Moya MD Work Phone: [phone] [place] [address] 06-21-2021 14:14-0400 Body height 177.8 cm Emma Moya MD Work Phone: [phone] [place] [address] 06-21-2021 14:14-0400 Body mass index (BMI) [Ratio] 32.21 kg/m2 Emma Moya MD Work Phone: [phone] [place] [address] 06-21-2021 14:14-0400 Body temperature 98.29 [degF] Emma Moya MD Work Phone: [phone] [place] [address] 04-05-2022 14:14-0400 Body weight 101.83 kg Emma Moya MD Work Phone: [facility] 06-21-2021 14:14-0400 Diastolic blood pressure 64 mm[Hg] Emma Moya MD Work Phone: [facility] 06-21-2021 14:14-0400 Heart rate 65 /min Emma Moya MD Work Phone: [facility] 06-21-2021 14:14-0400 Respiratory rate 16 /min Emma Moya MD Work Phone: [facility] 06-21-2021 14:14-0400 SaO2% (BldA) [Mass fraction] 95 % Emma Moya MD Work Phone: [facility] 06-21-2021 14:14-0400 Systolic blood pressure 136 mm[Hg] Emma Moya MD Work Phone: [facility] Encounters Encounter Date Encounter Type Care Provider Facility Start: 06-15-2022 End: 06-15-2022 Office outpatient visit 15 minutes Emma Moya MD Work Phone: Division of Surgical Oncology Procedures Date Procedure Procedure Detail Performing Clinician Start: 06-15-2022 Follow-up visit Follow-up EMMA MOYA Start: 06-21-2021 Us soft tissue head & neck real time imge robles Jarvis REMEDY DEVELOPER-DOG POUND ATTENDANT Work Phone: Plan of Treatment Date Care Activity Detail Author Start: 12-03-2024 Tetanus vaccination TETANUS [facility] Start: 11-17-2022 Influenza vaccination INFLUENZ A VACCINE (Season Ended) [facility] Start: 06-21-2022 End: 06-21-2022 US Thyroid gland US THYROID Imaging Routine Thyroid nodule Expected: 06/21/2022, Expires: 06/21/2022 [facility] Immunizations Immunization Date Immunization Notes Care Provider Uzair woods 12-31-2020 influenza virus vaccine, unspecified formulation Marika Tena REMEDY DEVELOPER-DOG POUND ATTENDANT Work Phone: [facility] 05-13-2020 COVID-19 vaccine, MR GUME, Veronica, 0.3 ML Tahmina Jarvis REMEDY DEVELOPER-DOG POUND ATTENDANT Work Phone: [facility] Work Phone: 04-22-2020 COVID-19 vaccine, MR DUNAWAY, Veronica, 0.3 ML Tahmina Walkersh REMEDY DEVELOPER-DOG POUND ATTENDANT Work Phone: [facility] Work Phone: 04-13-2008 zoster vaccine, unspecified formulation Marika Tena REMEDY DEVELOPER-DOG POUND ATTENDANT Work Phone: [facility] Payers Date Payer Category Payer Medicare MEDICARE [employer] [place] MEDICARE [employer] PPO [id number] 2021-Present [address] [place] [address] [id number] 2021 Medicare [id number] 1945 Unknown [id number] 1945 Unknown [id number] 1945 Unknown [id number] 1945 Unknown [id number] 1945 Unknown [id number] Social History Date Type Detail Facility Start: 01-28-2019 Tobacco smoking stat [facility] Never smoked tobacco [facility] Start: 01-28-2019 Tobacco use and exposure Smokeless tobacco non-user [facility] Start: 06-21-2021 End: 06-15-2022 Alcohol intake Current drinker of alcohol (finding) [facility] Start: 06-21-2021 End: 06-15-2022 Alcohol intake [facility] Start: 01-28-2019 History SDOH Alcohol Frequency 4 [facility] Start: 1945 Sex Assigned At Not on file [facility] Start: 06-11-2021 End: 06-21-2021 Exposure to SARS-CoV-2 (event) Not sure [facility] History of Present illness Narrative 06-15-2022 Ally Jaramillo, REMEDY DEVELOPER-DOG POUND ATTENDANT - 06/15/2022 2:30 PM EDT Note Date & Type Note Facility 06-15-2022 History of Present illness Narrative Chief Complaint: No chief complaint on file. History of Present Illness: Mr. Whitfield is a 76 y.o. male with a history of with thyroid nodules, which were found during work up for his parathyroid. He presents to [facility] for follow up [...] reported) 90 tablet 7 ergocalciferol 1.25 MG (99103 UT) capsule Take 1 capsule by mouth [...] Echogenicity: Hyperechoic or isoechoic (1 point) Shape: Otquw-owkq-dqjl (0 points) Margin: Smooth (0 points) Echogenic Foci: None or large comet-tail artifacts (0 points) TI-RADS* score: TR2 (2 points)- Not suspicious. No FNA or recommended imaging follow-up Nodule # 2 : Right mid Size: 0.5 x 0.5 x 0.4 cm, previously 0.5 x 0.5 x 0.4 cm Composition: Solid or almost completely solid (2 points) Echogenicity: Hyperechoic or isoechoic (1 point) Shape: Avugn-rbjs-jhry (0 points) Margin: Smooth (0 points) Echogenic Foci: None or large comet-tail artifacts (0 points) TI-RADS* score: TR3 (3 pts)- Mildly Suspicious. No FNA or recommended imaging follow-up Nodule # 3 : Left superior Size: 0.6 x 0.4 x 0.4 cm, previously 0.6 x 0.4 x 0.3 cm Composition: mixed solid and cystic (1 point) Echogenicity: Hyperechoic or isoechoic (1 point) Shape: Mdqsl-hbks-evfz (0 points) Margin: Smooth (0 points) Echogenic [...] local compressive symptoms. documented in this encounter [facility] Instructions 06-15-2022 Patient Instructions Note Date & Type Note Facility 06-15-2022 Instructions BHAVYA Araya - 06/15/2022 2:30 PM EDT US prior to appointment [facility] History of Present illness Narrative 06-21-2021 BHAVYA [...] for his parathyroid. He presents to [facility] for follow up, [...] reported) 90 tablet 7 ergocalciferol 1.25 MG (16683 UT) capsule Take 1 capsule by mouth [...] BILITOTAL, BILIDIRECT No results found for: TSH, NVF45MKP, AJX32PUZ, TSHBASELINE, TSHULTRASEN, T3FREE, D7SHDDKEX, H9QDAFE, A9EXZGXW, T4FREE, TPOAB Lab Results Component Value Date [...] seen in both lobes of the thyroid. Technical Sales Consultant lesions include: Right lobe: * Heterogeneous partially [...] indicated. * Lesions are classified using the [place] [employer] guidelines of 2015. (Thyroid, Volume 26, #1, 2016) documented in this encounter [facility] Progress note 05-14-2020 Note Date & Type Note Facility 05-14-2020 Note HNO ID: [id number] Author: Becca Olea Service: ? Author Type: Physician Desizing Machine Offbearer Type: Progress Notes Filed: 05/20/2020 1:24 AM [...] - ENDOSCOPY NAME: Charis Whitfield CLINIC NO.: [id number] DATE OF SERVICE: 05/14/2020 : 1945 REFERRING [...] which included preparing to see the patient, lddf-ol-bihj patient care, completing clinical documentation, obtaining and/or reviewing separately obtained history, independently interpreting results (not separately reported) and communicating results to the patient/family/caregiver. Becca Olea PA-C [facility] Progress note 04-14-2020 Note Date & Type Note Facility 04-14-2020 Note HNO ID: [id number] Author: Becca Olea Service: ? Author Type: Physician Desizing Machine Offbearer Type: Progress Notes Filed: 04/14/2020 3:40 PM [...] gout, hyperparathyroidism. He had a parathyroidectomy in [place] last year for parathyroid adenoma. Patient follows [...] entered by the nurse and reviewed by nh Nursing Notes: Laci Norman 04/12/2020 5:00 (more content not included)... [facility] Evaluation note Note Date & Type Note Facility documented in this encounter [facility] Evaluation note Note Date & Type Note Facility documented in this encounter [facility] Evaluation note Note Date & Type Note Facility documented in this encounter [facility] Evaluation note Note Date & Type Note Facility documented in this encounter [facility] Summary Purpose Family History No Family History Records FoundNo Family History Records FoundNo Family History Records Found Advance Directives No Advanced Directives Records FoundNo Advanced Directives Records FoundNo Advanced Directives Records Found Reason for Referral Specialty Diagnoses / Procedures Referred By Contac t Referred To Contact Diagnoses Multiple thyroid nodules Procedures US THYROID Tahmina Jarvis REMEDY DEVELOPER-DOG POUND ATTENDANT [address] [facility] [address] [place] [address] Referral ID Status Reason Start Date Expiration Date V isits Requested Visits Authorized [id number] Pending Review 06/22/2020 07/17/2021 1 1 Specialty Diagnoses / Procedures Referred By Contac t Referred To Contact Diagnoses Thyroid nodule Procedures US THYROID Marika Tena REMEDY DEVELOPER-DOG POUND ATTENDANT [address] [place] [address] Referral ID Status Reason Start Date Expiration Date V isits Requested Visits Authorized [id number] New Request 06/21/2021 07/16/2022 1 1 Specialty Diagnoses / Procedures Referred By Contac t Referred To Contact Diagnoses Thyroid nodule Procedures US THYROID Marika Tena REMEDY DEVELOPER-DOG POUND ATTENDANT [address] [place] [address] Additional Source Comments (unrecognized sect ion and content) No Status Records FoundNo Status Records FoundNo Status Records Found INFORMATION SOURCE (unrecogn ized section and content) DATE CREATED AUTHOR AUTHOR'S ORGANIZ ATION 04/10/2021 [facility] DATE CREATED AUTHOR AUTHOR'S ORGANIZ ATION 06/20/2022 [facility] Reason for Visit (unrecogniz ed section and content) Referral ID Status Reason Start Date Expiration Date V isits Requested Visits Authorized [id number] Pending Review 06/22/2020 07/17/2021 1 1 Reason Comments Follow-up Here to review neck ultrasound. Patient complaining about fatigue Specialty Diagnoses / Procedures Referred By Contac t Referred To Contact Diagnoses Thyroid nodule Procedures US THYROID Marika Tena, REMEDY DEVELOPER-DOG POUND ATTENDANT [address] [place] [address] Referral ID Status Reason Start Date Expiration Date V isits Requested Visits Authorized [id number] New Request 06/21/2021 07/16/2022 1 1 Reason Comments Follow-up US completed prior t o apptNew arthritis left knee and left hand knuckle area Care Teams (unrecognized sec tion and content) Coin Box Inspector Relationship Specialty Start Date End Date Emma Gallego MD PCP - General Family Medicine 01/28/19 Coin Box Inspector Relationship Specialty Start Date End Date Emma Gallego MD PCP - General Family Medicine 01/28/19 Coin Box Inspector Relationship Specialty Start Date End Date Emma [...] BE BASED ON THE PRIMARY CLINICAL RECORDS. [employer] [facility]. provides no warranty or guarantee of the accuracy or completeness of information in this document.
== END | disposition home or self-care (01) ==
LOC: MTRAD 09:26
PROVIDERS: PCP Family Medicine; Referring Provider Family Medicine; Visit Provider Family Medicine
DX: M54.16 Radiculopathy, lumbar region (principal)
CPT/HCPCS: 72110

== ENCOUNTER 2023-07-03 09:30 | Outpatient (RCR) | payer MEDICARE, SELFPAY ==
--- NOTE | 2023-05-22 09:37 | HP.PTEVAL_ITS ---
Patient's Visit Information Visit Information Visit Information: CHARIS WHITFIELD is a 77 year old M referred to Physical Therapy by Dr. Delgado Murillo MD with a diagnosis of R ankle sprain & Radiculopathy. Date of Evaluation: 05/16/23 Physical Therapist: Basim Aquino DPT Visit Plan Frequency: 1x/Week Duration: 6 Weeks Plan: - address sciatic nerve irritation: grade 1/2 lumbar PA mobs, R piriformis and paraspinal STM, sciatic nerve glide, hamstring/calf stretching - flexion based core ex - once pt can tolerate standing for >5 min, address LE strength (HS, quads, glutes) and balance (will resume working out 2x per week with [employer] once pain subsides) with goal to get back to using no AD - ankle STM and strengthening as needed (pt appears to be most affected by radic sxs) educate pt on ankle alphabets for AROM, forgot to add to HEP Pt had an ankle sprain that is healing normally, be aware of with balance ex and check for R ankle swelling, but ease back into before d/c so he cant return to personal training sessions. Want to get back to using no AD (HEP: LTR, supine sciatic nerve glides, DKTC, seated piriformis stretch, seated lumbar flex) Subjective Subjective: Pt was in a personal training session on 05/03/23 and stepped off a BOSU ball and rolled his ankle. Pt then began noticing tingling in calf and up back of leg 2 days later, had ankle and lumbar x-rays. Pt reports numbness and tingling in R foot and calf that has become more uncomfortable than his ankle, feels the ankle is healing and has decreased in pain and swelling. Pt reports worst pain is 7/10 I can function but I don't want to, pain reduces down to 1/10 when sitting. Standing in the shower and walking makes pain worse, able to stand for 3 minutes before pain becomes too intense and needs to sit down. 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 Pt has great difficulty navigating in his split-level home with multiple stairs. Typically sleeps in a bed, but is currently sleeping in a recliner, pain keeps him up frequently at night. Pt is a retired [employer] professor, hosts a podcast, keeps bees, and takes care of all ADLs for himself and his . Currently using bilateral canes to help amb., baseline is no AD but does report some issues with balance. Wants to be able to get back to working out 2x per week at [employer] and perform all ADLs with increased tolerance and decreased pain. Pain Right Lower Extremity: Pain Intensity (Out of 10): 1 Pain Intensity Range: 1 and 7 Right Ankle: Pain Intensity (Out of 10): 1 Pain Intensity Range: 1 and 3 Objective Objective: ROM: mod tightness in hamstrings, R tighter than L, some tightness with end range supine R hip flex lumbar ROM: flex 100%, ext 10% with instant increase in pain, L LSB a R sided stretch, R LSB painful, rotation popeye painful but could have been altered by normal irritation from just standing MMT: R hip ABD 3-/5 with pain, R hip flex 4/5, R knee ext 4+/5 L hip ABD 4- /5 with pull in R hip, L hip flex 4+/5, L knee ext 4+/5 GAIT: heavy UE support and forward trunk lean, only able to tolerate for 1-3 min before needing to sit down, had better performance/balance with SBQC in L UE, but pt seemed to feel safest with SBQC in LUE and SPC in R with 2 point gait PALPATION: tenderness in R paraspinals and piriformis OBSERATIONS: lumbar flexion felt better and decreased calf pain, in seated and with DKTC Balance/Special Test Scores Lower Extremity Functional Score: 12 Goals Goal 1:: STG: 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 for 10+ min with no AD Goal Time Frame: 4-6 Weeks Goal 3:: STG: Pt will be able to navigate a flight of steps with <2/10 pain and unilateral UE support Goal 4:: LTG: Pt will be able to walk around the grocery store with no AD and <2/10 pain Goal 5:: LTG: Pt will achieve 12s on TUG with no AD and <2/10 pain Rehabilitation Potential Physical Therapy Diagnosis: Pt presents to PT with radicular pain in RLE, gait deficits, and mild R ankle pain. Pt would benefit from skilled PT services to address sciatic nerve pain/irritation, gait mechanics with LRD, and tolerance to standing and walking in order to return to pain-free ADLs and role as a full- time caregiver. Rehabilitation Potential: Good Anticipated Interventions Patient/Client Instruction: Educate patient on: Condition, Plan of Care and Benefits of Fitness Program For the Purpose of:: To decrease pain, To increase ROM, To improve ability to perform ADL's, To increase tolerance to activity/condition/position, To improve performance and independence with ADL's, To decrease level of supervision to per form tasks, To improve ability of physical actions for home/community/work/leisure, To improve gait and locomotor functions, To decrease soft tissue restriction, To increase flexibility/ROM, To improve endurance, To improve balance, To improve safety with gait, To assume or resume ADL's, To reduce risk of recurrence, To improve self management, To prevent re- injury, To improve ability to perform tasks related to life management and To improve tolerance to ADL's Therapeutic Exercise to Include: Strength training, Balance training, Postural training, Flexibilty training, Gait and locomotor training, Passive ROM, Active ROM and Felicity Exercises For the Purpose of:: To decrease pain, To decrease swelling/inflammation, To increase ROM, To increase tolerance to activity/condition/position, To improve performance and independence with ADL's, To decrease level of supervision to perform tasks, To improve ability of physical actions for home/comm unity/work/leisure, To improve gait and locomotor functions, To improve health of tissue, To decrease soft tissue restriction, To increase flexibility/ROM, To improve balance, To improve safety with gait, To assume or resume ADL's, To reduce risk of recurrence, To improve safety, To improve ability to perform tasks related to life management and To improve tolerance to ADL's Manual Therapy Techniques to Include: Mobilization, Passive ROM and Soft tissue mobilization For the Purpose of:: To decrease pain, To decrease swelling/inflammation, To increase ROM, To decrease soft tissue restriction, To increase flexibility/ROM, To improve ability to perform tasks related to life management and To improve tolerance to ADL's TENS: Yes IF ES: Yes Cryotherapy (ice pack, ice massage): Yes Thermo therapy (hot pack): Yes For the Purpose of:: To decrease pain, To decrease swelling/inflammation, To improve gait and locomotor functions, To improve health of tissue, To improve ability to perform tasks related to life management and To improve tolerance to ADL's Text: Thank you for the opportunity to evaluate your patient. For Medicare and Medicare HMO plans, please review the plan of care and approve it. It will need to be FAXED BACK to us at [phone] for Medicare purposes. For Medicare only, by signing this I certify the plan of care. Please let me know if there are questions or concerns regarding this plan of care. Physician Signature: Date:
--- NOTE | 2023-07-05 12:24 | HP.PTDCSUM ---
Discharge Summary D/C summary: It has been my pleasure to treat CHARIS WHITFIELD referred by Dr. Delgado Murillo MD, with the diagnosis of R ankle sprain & Radiculopathy for a total of 11 visit(s). Discharge Date: 07/05/23 Please see the following information for a summary of their discharge status. Subjective Subjective: Pt. reports being 98% better overall. Pt. reports his only issues with a baseball size numbness on top of his R foot. Pt. Pain Right Lower Extremity: Pain Intensity (Out of 10): 0 Right Ankle: Pain Intensity (Out of 10): 0 Overall Improvement % Improvement: 98 Objective Objective/Function: TU.2 sec no AD LUMBAR ROM: Pt. has close to full ROM of lumbar spine except ext min loss abd SB min loss bilat. NO limited secondary to pain, but more by stiffness. MMT: Pt. has equal strength between BLEs. Pt. does have some mild pain with R ankle EVR. and some weakness 4/5 with the same movement. GAIT: Fairly normal gait pattern without increase in symptoms. STAIRS: Normal with 1 HR to complete. 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 for 10+ min with no AD Goal Progress: Goal Met Goal 3:: STG: Pt will be able to navigate a flight of steps with <2/10 pain and unilateral UE support Goal Progress: Goal Met Goal 4:: LTG: Pt will be able to walk around the grocery store with no AD and <2/10 pain Goal Progress: Goal Met Goal 5:: LTG: Pt will achieve 12s on TUG with no AD and <2/10 pain Goal Progress: Goal Met Plan Plan: Pt. to be DC from PT at this point in time. D/C Information Discharge Comments: Pt. to be DC from PT at this point in time. Pt. was treated for both his ankle and back. He is overall much better and will be DC from PT at this point in time. d/c sentence: If there are questions or concerns regarding this patient's physical therapy, please feel free to call me at [phone]. Thank you for the referral of this patient. Sincerely, Basim Phelpsos, DPT Balance/Gait/Functional tests Balance/Special Test Scores Lower Extremity Functional Score: 62 TUG Test Time Seconds: 8.2 Tug Test: <10 sec.=free mobile Improvement % Improvement: 98
== END 2023-07-03 19:00 | disposition home or self-care (01) ==
LOC: PT 09:30
PROVIDERS: PCP Family Medicine; Referring Provider Family Medicine; Visit Provider Family Medicine
DX: S93.401D Sprain of unspecified ligament of right ankle, subsequent encounter (principal); M54.16 Radiculopathy, lumbar region
CPT/HCPCS: 97110; 97161; 97530

== ENCOUNTER → 2023-07-23 | Outpatient (CLI) | payer MEDICARE, SELFPAY ==
--- NOTE | 2023-07-23 15:30 | MRI_ITS ---
STUDY: MRI LUMBAR SPINE WITHOUT CONTRAST REASON FOR EXAM: Male, 77 years old. RADICULOPATHY TECHNIQUE: Standardized fat and water weighted pulse sequences were obtained in the sagittal and axial planes. Noncontrast images obtained. Contrast: No contrast administered COMPARISON: None FINDINGS: Vertebral bodies and alignment. 1. Vertebral body height and alignment are maintained. Significant endplate changes with endplate edema and Schmorl''s nodes noted at L2-3. Additional hemangioma at L4. No acute destructive bony process is noted. Modic type I endplate changes at L1.. 2. Paraspinous soft tissue planes have normal appearance. Normal appearance of the muscular fascial planes of the erector spinae. 3. Normal appearance of the sacrum and sacroiliac joints. 4. Multiple bilateral benign appearing renal cysts, largest is present on the RIGHT measuring approximately 2.9 x 2.7 cm. Intervertebral disks levels. T12-L1: Broad-based posterior disc bulge, facet and ligamentum flavum hypertrophic changes without evidence of disc herniation canal stenosis cord or nerve root impingement. L1-2: Disc desiccation, Modic type I endplate changes are present. No evidence of disc herniation or canal stenosis although broad-based bulge is present. Facet and ligamentum flavum hypertrophic changes are present. No evidence of canal or foraminal stenosis. L2-3: Significant endplate changes with superior and inferior Schmorl''s nodes and associated marrow edema. Superimposed Modic type II changes are present. There is broad-based bulge and osteophyte. No central canal stenosis, there is however compression of lateral recesses and neural foramina greater on LEFT than RIGHT contributed by facet and ligamentum flavum hypertrophic changes. Early nerve root impingement within the LEFT lateral recess is a consideration. There is mild bilateral foraminal stenosis. L3-4: Disc desiccation, discogenic endplate changes particularly involving the inferior endplate of L3. Schmorl''s nodes noted with superimposed Modic type II changes. There is broad-based disc bulge and osteophyte complex, central thecal sac maintained at 8 mm. Facet and ligament flavum hypertrophic changes contribute to lateral recess narrowing with early nerve root impingement. Foraminal narrowing bilaterally greater on the RIGHT than LEFT with potential early RIGHT L3 nerve root impingement within and lateral to the neural foramen. Changes L4-5: Disc desiccation, broad-based chronic appearing disc bulge/protrusion. There is significant effacement of the anterior epidural space. Central thecal sac is narrowed to 5 mm, compression of lateral recesses with potential nerve root impingement bilaterally contributed by broad-based disc bulge/borderline protrusion eccentrically by facet and ligament flavum hypertrophic changes. Bilateral foraminal stenosis with potential nerve root impingement within the neural foramina. L5-S1: Disc desiccation, broad-based chronic appearing disc bulge/borderline protrusion and osteophyte, no central canal stenosis however effacement of the anterior epidural space and mild displacement of the S1 nerve roots without johnnie nerve root impingement. There is mild foraminal stenosis particularly on the RIGHT with potential RIGHT L5 nerve root impingement. Spinal cord: Normal appearance of the spinal cord and conus. Conus is located at L1. Cauda equina has normal appearance. No evidence of cord compression or edema. No intramedullary signal abnormality noted. 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 Paraspinous soft tissues: Normal visualized paraspinous soft tissue structures. MRI/Spine Lumbar (Routine) IMPRESSION: 1. Moderate to extensive multilevel lumbar spondylosis, discogenic endplate changes and Schmorl''s nodes noted at L2-3, as well as the inferior endplate of L3. 2. Broad-based disc bulge/protrusion osteophyte complex at L4-5 with associated severe canal stenosis and compression of nerve roots lateral recesses bilaterally. 3. Multilevel lateral recess narrowing/compromise due to disc bulge and facet hypertrophic changes as described in detail. 4. Broad-based disc bulge/borderline protrusion at L5-S1 without canal stenosis, however RIGHT foraminal stenosis with potential compression/compromise of the RIGHT L5 nerve root. 5. No evidence of cord or conus compression. Electronically Signed: Shimon Boss MD at 1:53 EDT ,
== END | disposition home or self-care (01) ==
PROVIDERS: PCP Family Medicine; Referring Provider Anesthesiology Pain Medicine; Visit Provider Anesthesiology Pain Medicine
DX: M54.17 Radiculopathy, lumbosacral region (principal)
CPT/HCPCS: 72148

== ENCOUNTER → 2023-08-02 | Outpatient (CLI) | payer MEDICARE, SELFPAY ==
[2023-08-02 07:49] LABS: Bacteria 0 SEEN /hpf (None Seen); Mucous, Urine 0 SEEN /hpf (<or=2+); Red Blood Cells-Urine 0 SEEN /hpf (0-5); Squamous Epithelial Cells - UA 0 SEEN /hpf (0-5)
[2023-08-02 10:04] LABS: Color, Urine Yellow (Yellow); Glucose, Dipstick Normal (Normal); Ketone-Dipstick Negative (Negative); Leukocyte Esterase-Dipstick 25 /ul (Negative); Nitrite-Dipstick Negative (Negative); Occult Blood-Urine Negative /ul (Negative); Protein-Dipstick 100 mg/dl (Negative); Urine Clarity Clear (Clear); Urine Urobilinogen 1 mg/dl (Normal)
[2023-08-02 10:07] LABS: Absolute Lymphocyte Count 1.25 X10^3/uL (0.83-4.51); Absolute Neutrophil Count 5.7 X10^3/uL (2.0-7.7); Basophil# 0.03 X10^3/uL; Basophil% 0.4 % (0-1); Eosinophil# 0.14 X10^3/uL; Eosinophils% 1.8 % (0-5); Hematocrit 44.4 % (40-54); Hemoglobin 14.7 g/dL (13.0-16.5); Lymphocyte # 1.25 X10^3/ul (0.83-4.51); Mean Corp Hgb Conc 33.1 g/dL (32-36); Mean Corpuscular Hgb 29.8 pg (27.0-32.0); Mean Corpuscular Volume 90.1 fL (80-94); Mean Platelet Vol. 9.4 fl (6.2-12.0); Monocyte# 0.65 X10^3/uL; Monocyte% 8.3 % (0-10); NRBC Flagged by Analyzer 0 % (0-5); Neutrophil # 5.74 X10^3/uL (2.7-7.7); Neutrophil % 73.2 % (47-70); Platelet Count 154 K/mm3 (150-450); RBC Distribution Width CV 13.1 % (11.6-14.6); RBC Distribution Width SD 42.6 fl (35.1-43.9); Red Blood Count 4.93 M/mm3 (4.6-6.2); White Blood Count 7.8 K/mm3 (4.4-11.0)
[2023-08-02 10:15] LABS: Urine Bilirubin Dipstick 1 mg/dL (Negative)
[2023-08-02 10:16] LABS: White Blood Cells 0-5 SEEN /hpf (0-5)
[2023-08-02 10:25] LABS: Protein, Urine (Random) 77.5 mg/dL (<11.9); Protein:Creat Ratio 326 mg/g CRE (0-200)
[2023-08-02 11:00] LABS: ALB/GLOB Ratio 1.1 RATIO (0.9-2.4); AST(SGOT) 16 U/L (15-37); Alanine Aminotransfer ALT/SGPT 23 U/L (16-61); Albumin, Serum 3.7 g/dL (3.2-5.0); Alkaline Phosphatase 87 U/L (45-117); Anion Gap 4 (5-15); BUN 27 mg/dL (7-18); BUN/Creat Ratio 20.6 RATIO (10-20); Calcium,Total 8.7 mg/dL (8.5-10.1); Chloride 109 mmol/L (98-107); Cholesterol 134 mg/dL (200); Creatinine, Serum 1.31 mg/dL (0.70-1.30); EST Glomerular Filtration Rate 57 mL/min (>60); Est Glom Filt Rate - Afr Amer 68 mL/min (>60); Globulin 3.3 g/dL (2.2-4.2); Glucose 111 mg/dL (74-106); High Density Lipoprotein 43 mg/dL; Magnesium 2.1 mg/dL (1.6-2.6); PSA,Total - Annual Screen 4.15 ng/mL (0.00-4.00); Phosphorus 3.2 mg/dL (2.5-4.9); Potassium 3.9 mmol/L (3.5-5.1); Sodium Level 140 mmol/L (136-145); Thyroid Stim Hormone (TSH) 1.41 uIU/mL (0.358-3.74); Triglycerides 169 mg/dL; Very Low Density Lipoprotein 34 mg/dL (5-40)
[2023-08-02 18:13] LABS: Vitamin D,25 Hydroxy 77.6 ng/mL
[2023-08-02 18:25] LABS: PTHIN 82.9 pg/mL (18.4-80.1)
== END | disposition home or self-care (01) ==
LOC: MTLAB 07:44
PROVIDERS: PCP Family Medicine; Referring Provider Family Medicine; Visit Provider Family Medicine
DX: I12.9 Hypertensive chronic kidney disease with stage 1 through stage 4 chronic kidney disease, or unspecified chronic kidney disease (principal); N18.30 Chronic kidney disease, stage 3 unspecified; Z12.5 Encounter for screening for malignant neoplasm of prostate
CPT/HCPCS: 80053; 80061; 81001; 82306; 82570; 83735; 83970; 84100; 84153; 84156; 84443; 85025; G0103

== ENCOUNTER → 2023-08-07 | Outpatient (CLI) | payer MEDICARE, SELFPAY ==
--- NOTE | 2023-08-07 10:54 | US_ITS ---
STUDY: THYROID ULTRASOUND REASON FOR EXAM: Male, 77 years old. Known nodules TECHNIQUE: Ultrasound evaluation of the thyroid was performed with real-time and static saenz-scale imaging. COMPARISON: 06/03/2021 FINDINGS: RIGHT LOBE: The right lobe of the thyroid gland measures 4.3 x 2.0 x 1.8 cm. There is a heterogeneous echotexture. There are 2 stable solid/cystic nodules larger measuring 1.4 cm. Nodules are mixed cystic and solid, anechoic, [id number], smoothly marginated and contains no echogenic foci. TI-RADS points: 1. TI-RADS category: TR1. Nodules are benign and no FNA or follow-up is necessary. LEFT LOBE: The left lobe of the thyroid gland measures 4.5 x 1.7 x 1.3 cm. There is a heterogeneous echotexture. 3 stable solid/cystic nodules, largest measures 7 mm. Nodules are mixed cystic and solid, anechoic, [id number], smoothly marginated and contains no echogenic foci. TI-RADS points: 1. TI-RADS category: TR1. Nodules are benign and no FNA or follow-up is necessary. ISTHMUS: The isthmus measures 4 mm. The regional lymph nodes are normal. US/Thyroid IMPRESSION: Stable heterogeneous normal-sized thyroid gland with bilateral solid and cystic nodules. No interval change. Categorization and follow-up as listed above Electronically Signed: Chay Pino MD at 9:05 EDT ,
== END | disposition home or self-care (01) ==
LOC: US 10:48
PROVIDERS: PCP Family Medicine; Referring Provider Family Medicine; Visit Provider Family Medicine
DX: E04.1 Nontoxic single thyroid nodule (principal)
CPT/HCPCS: 76536

== ENCOUNTER 2023-11-28 15:59 | Emergency (ER) | payer OTHER, SELFPAY ==
[2023-11-28 15:59] VITALS: BP 132/66; PULSE 62; RESP 18; TEMP 36.4; O2SAT 97
[2023-11-28 16:00] VITALS: BMI 38.7
--- NOTE | 2023-11-28 16:20 | ED.VIS.FALL ---
HPI HPI - Fall History of Present Illness Chief Complaint: Fall Informant: patient Narrative Narrative: 78-year-old male presenting to the emergency room with a chief complaint of fall. Patient states he was at [employer] working out when he went to step off of a Bosu ball and fell down. He notes injury to the lateral right ankle and pain to the left elbow. He was given a sling by the staff. He notes pain with movement of the left elbow. He has been able to bear weight on the left ankle. He states he did not hit his head vomit or lose consciousness. He notes no neck or back pain from the fall. He denies being on blood thinner. [facility] Medical History GERD (gastroesophageal reflux disease) Sleep apnea Hypertension Arthritis Sebaceous cyst Sciatica Right ankle strain Chronic kidney disease Asthma Hard of hearing Home Medications ?Medication ?Instructions ?Recorded ?Last Taken ?Type alfuzosin 10 mg tablet,extended 10 mg PO QHS urinary issues 05/27/19 Unknown History release 24 hr albuterol sulfate 90 mcg/actuation 2 puff inhalation Q4H PRN 06/18/23 Unknown History aerosol inhaler (Proventil HFA) amlodipine 10 mg tablet 5 mg PO DAILY bp 06/18/23 Unknown History cholecalciferol (vitamin D3) 50 50 mcg PO DAILY 06/18/23 Unknown History mcg (2,000 unit) capsule lisinopril 5 mg tablet 5 mg PO DAILY 06/18/23 Unknown History metoprolol succinate 100 mg 100 mg PO DAILY 06/18/23 Unknown History tablet,extended release 24 hr (Toprol XL) mometasone 100 mcg/actuation HFA 1 puff inhalation BID 06/18/23 Unknown History aerosol inhaler (Asmanex HFA) omeprazole 20 mg capsule,delayed 20 mg PO DAILY 06/18/23 Unknown History release rosuvastatin 10 mg tablet (Crestor) 10 mg PO DAILY 06/18/23 Unknown History Allergy/AdvReac Type Severity Reaction Status Date / Time ibuprofen AdvReac Diarrhea Verified 11/28/23 15:59 Surgical History History of shoulder surgery History of colon resection Social History Smoking Status: Never smoker alcohol intake: current substance use type: does not use ROS ROS ED Constitutional Constitutional ED: Denies chills, fever(s) or weight loss Eyes Eyes: Denies change in vision or diplopia ENT ENT ED: Denies ear pain, rhinorrhea or sore throat Cardiovascular Cardiovascular: Denies chest pain, orthopnea, palpitations or racing heartbeat Respiratory/Chest Respiratory/Chest: Denies cough, dyspnea or orthopnea Gastrointestinal Gastrointestinal: Denies abdominal pain, diarrhea, nausea or vomiting Genitourinary Genitourinary ED: Denies dysuria, hematuria or urinary frequency Musculoskeletal Musculoskeletal: Reports other Details: See HPI ; Denies arthralgias, back pain, myalgias or neck pain Integumentary Denies abscess or rash Neurologic Neurologic: Denies headache(s) or weakness Psychiatric Psychiatric: Denies anxiety, depression, suicidal ideation or suicidal thoughts Endocrine Endocrinology: Denies polydipsia, polyphagia or polyuria Allergic/Immunologic Allergic/Immunologic ED: Denies mouth swelling, tongue swelling or urticaria EXAM Physical Exam Const Vital Signs: 11/28/23 15:59 11/28/23 16:39 Temperature 97.6 F L Temperature Source Temporal Pulse Rate 62 Respiratory Rate 18 Respiratory Effort Normal Non-Labored Respiratory Depth Normal Respiratory Pattern Normal Blood Pressure 132/66 H Blood Pressure Mean 88 Pulse Ox 97 Oxygen Delivery Method Room Air Room Air Positive well nourished and well developed General Appearance ED: well developed and NAD HEENT Reports normocephalic, head/scalp atraumatic and moist mucous membranes Eyes PERRL and EOMs intact bilaterally Neck no lymphadenopathy, supple and no JVD Resp normal respiratory effort and clear to auscultation bilaterally Cardio regular rate, regular rhythm and no murmurs GI normal to inspection, nondistended, normoactive bowel sounds and non-tender Palpation: soft Back/Spine no CVA tenderness and normal ROM Extremity Extremity Narrative: Right ankle shows swelling and tenderness over the lateral malleolus. No fifth metatarsal or fibular head pain. No medial or posterior malleoli or tenderness. Achilles palpates and functionally is intact. Neurovascularly appears intact. No swelling or tenderness over the ATF. Mortise appears stable. Patient has tenderness to palpation over the medial aspect of the left elbow. There is no radial head tenderness. Neurovascularly appears intact distal to the elbow. Neuro oriented x3 and CN's II-XII intact bilaterally Sensorium / Orientation: alert Motor Exam: strength 5/5 throughout Psych mental status grossly normal Mood & Affect: Negative for depressed or tearful Skin no rashes or lesions noted and no wounds MDM MDM MDM Narrative Medical decision making narrative: Differential diagnosis includes ligamentous/muscular sprain strain contusion fracture neurovascular injury My independent interpretation of the plain films of the right ankle is soft tissue swelling no definitive acute fracture. Ankle mortise is intact. There is evidence of old pulloff fracture. My independent interpretation the plain films of the left elbow is no obvious fracture noted. Ice was applied by nursing. Patient will be treated with Eladio wrap. Would recommend Tylenol Motrin for pain. Follow-up 10 to 14 days if not improved return if worsening or concerns History & Record Review Discussion w/independent historian: Patient Radiography Diagnostic Testing: Clinical Impression(s) from Imaging Studies Ankle X-Ray 11/28/23 16:25 IMPRESSION: Lateral malleolus sprain and probable old posttraumatic deformity of the distal fibular plafond with degenerative changes. No acute fracture or dislocation Electronically Signed: Rinku Joy MD at 17:08 EDT , Elbow X-Ray 11/28/23 16:25 IMPRESSION: Normal x-ray examination of the elbow. Electronically Signed: Rinku Joy MD at 17:06 EDT , Discharge Plan Triage Chief Complaint: Fall ED Provider: Luis Antonio Parsons Dx/Rx/DC Orders Clinical Impression: Fall, Right ankle sprain, Contusion of elbow, left Instructions: Bone Contusion Prescriptions: No Action cholecalciferol (vitamin D3) 50 mcg (2,000 unit) capsule 50 mcg PO DAILY rosuvastatin [Crestor] 10 mg tablet 10 mg PO DAILY omeprazole 20 mg capsule,delayed release(DR/EC) 20 mg PO DAILY Asmanex HFA 100 mcg/actuation HFA aerosol inhaler 1 puff inhalation BID metoprolol succinate [Toprol XL] 100 mg tablet extended release 24 hr 100 mg PO DAILY lisinopril 5 mg tablet 5 mg PO DAILY albuterol sulfate [Proventil HFA] 90 mcg/actuation HFA aerosol inhaler 2 puff inhalation Q4H PRN alfuzosin 10 MG tablet extended release 24 hr 10 mg PO QHS amlodipine 10 mg tablet 5 mg PO DAILY Rx Instructions: 2.5mg daily in am and 5mg in pm Primary Care Provider: Delgado Murillo Referrals: Delgado Murillo MD [Primary Care Provider] - 10-14 Days if not better Print Language: Montserratian Disposition Disposition: Home, Self Care
--- NOTE | 2023-11-28 16:25 | RAD_ITS ---
STUDY: X-RAY - RIGHT ANKLE REASON FOR EXAM: Male, 78 years old. injury TECHNIQUE: 3 view(s) of the ankle. COMPARISON: None. FINDINGS: Normal visualized distal tibia. There is deformity of the distal fibular plafond likely due to old trauma and creating degenerative changes. Normal medial and lateral malleoli. Normal tibiotalar articulation and ankle mortise. Normal visualized talus and calcaneus. The visualized subtalar, talonavicular, calcaneocuboid and tarsal articulations are normal. Soft tissue swelling overlying the lateral malleolus RAD/Ankle min 3 Views IMPRESSION: Lateral malleolus sprain and probable old posttraumatic deformity of the distal fibular plafond with degenerative changes. No acute fracture or dislocation Electronically Signed: Rinku Joy MD at 17:08 EDT ,
--- NOTE | 2023-11-28 16:25 | RAD_ITS ---
STUDY: X-RAY - LEFT ELBOW REASON FOR EXAM: Male, 78 years old. injury and pain TECHNIQUE: 3 view(s) of the elbow. COMPARISON: None. FINDINGS: Normal visualized humerus, radius and ulna. Normal radiocapitellar and ulnotrochlear articulations. The soft tissue structures are unremarkable. RAD/Elbow min 3 Views IMPRESSION: Normal x-ray examination of the elbow. Electronically Signed: Rinku Joy MD at 17:06 EDT ,
[2023-11-28 17:42] VITALS: BP 138/78; PULSE 65; RESP 18; TEMP 36.2; O2SAT 97
== END 2023-11-28 17:42 | disposition home or self-care (01) ==
PROVIDERS: Emergency Provider Emergency Medicine; PCP Family Medicine; Visit Provider Emergency Medicine
DX: S93.401A Sprain of unspecified ligament of right ankle, initial encounter (principal); N18.9 Chronic kidney disease, unspecified; S50.02XA Contusion of left elbow, initial encounter; I12.9 Hypertensive chronic kidney disease with stage 1 through stage 4 chronic kidney disease, or unspecified chronic kidney disease; W17.89XA Other fall from one level to another, initial encounter; Y93.89 Activity, other specified; Y92.89 Other specified places as the place of occurrence of the external cause; Z79.899 Other long term (current) drug therapy; K21.9 Gastro-esophageal reflux disease without esophagitis
CPT/HCPCS: 73080; 73610; 99282

== ENCOUNTER → 2023-12-07 | Outpatient (CLI) | payer MEDICARE, SELFPAY ==
--- NOTE | 2023-12-07 10:43 | RAD_ITS ---
INDICATION: pain, fall EXAMINATION/TECHNIQUE: X-RAY - LEFT XR Elbow Min 3 Views COMPARISON: Prior study dated: 11/28/2023 FINDINGS: SOFT TISSUES: No soft tissue swelling or gas. No radiopaque foreign body. BONES/JOINTS: Questionable elevation of the anterior fat pad. No acute fracture or subluxation. Normal alignment. Preservation of the joint space. No sclerotic or destructive changes observed. RAD/Elbow min 3 Views IMPRESSION: Questionable elevation of the anterior fat pad could represent an occult supracondylar humerus or radial head fracture. Consider CT. Electronically Signed: Moises Smith MD at 17:00 EDT ,
== END | disposition home or self-care (01) ==
LOC: MTRAD 10:43
PROVIDERS: PCP Family Medicine; Referring Provider Family Medicine; Visit Provider Family Medicine
DX: M25.529 Pain in unspecified elbow (principal)
CPT/HCPCS: 73080

== ENCOUNTER → 2023-12-14 | Outpatient (CLI) | payer MEDICARE, SELFPAY ==
[2023-12-14 15:42] LABS: Mucous, Urine 0 SEEN /hpf (<or=2+); Squamous Epithelial Cells - UA 0 SEEN /hpf (0-5)
[2023-12-14 17:41] LABS: Absolute Lymphocyte Count 1.51 X10^3/uL (0.83-4.51); Absolute Neutrophil Count 4.6 X10^3/uL (2.0-7.7); Basophil# 0.03 X10^3/uL; Basophil% 0.4 % (0-1); Eosinophils% 1.5 % (0-5); Hematocrit 43.3 % (40-54); Lymphocyte # 1.51 X10^3/ul (0.83-4.51); Lymphocyte % 22.5 % (19-41); Mean Corp Hgb Conc 32.3 g/dL (32-36); Mean Corpuscular Hgb 29.4 pg (27.0-32.0); Mean Platelet Vol. 9.1 fl (6.2-12.0); Monocyte# 0.48 X10^3/uL; Monocyte% 7.1 % (0-10); NRBC Flagged by Analyzer 0 % (0-5); Neutrophil # 4.56 X10^3/uL (2.7-7.7); Neutrophil % 67.9 % (47-70); Platelet Count 202 K/mm3 (150-450); RBC Distribution Width CV 12.5 % (11.6-14.6); RBC Distribution Width SD 41.1 fl (35.1-43.9); Red Blood Count 4.76 M/mm3 (4.6-6.2); White Blood Count 6.7 K/mm3 (4.4-11.0)
[2023-12-14 18:01] LABS: Color, Urine Yellow (Yellow); Glucose, Dipstick Normal (Normal); Ketone-Dipstick Negative (Negative); Leukocyte Esterase-Dipstick 25 /ul (Negative); Nitrite-Dipstick Negative (Negative); Occult Blood-Urine Negative /ul (Negative); Protein-Dipstick 30 mg/dl (Negative); Specific Gravity, Urine 1.025 (1.002-1.030); Urine Clarity Sl. Cloudy (Clear); Urine Urobilinogen 1 mg/dl (Normal)
[2023-12-14 18:11] LABS: Protein, Urine (Random) 35.6 mg/dL (<11.9); Protein:Creat Ratio 160 mg/g CRE (0-200)
[2023-12-14 18:28] LABS: PTHIN 79.9 pg/mL (18.4-80.1)
[2023-12-14 18:31] LABS: Urine Bilirubin Dipstick 1 mg/dL (Negative)
[2023-12-14 18:33] LABS: Bacteria RARE /hpf (None Seen); Red Blood Cells-Urine 0-5 SEEN /hpf (0-5); White Blood Cells 5-10 SEEN /hpf (0-5)
[2023-12-14 18:34] LABS: Coarse Granular Cast 0-5 SEEN /lpf (0-5 /lpf)
[2023-12-14 18:45] LABS: AST(SGOT) 16 U/L (15-37); Alanine Aminotransfer ALT/SGPT 23 U/L (16-61); Albumin, Serum 3.7 g/dL (3.2-5.0); Alkaline Phosphatase 89 U/L (45-117); Anion Gap 6 (5-15); BUN 33 mg/dL (7-18); BUN/Creat Ratio 24.1 RATIO (10-20); Calcium,Total 9.2 mg/dL (8.5-10.1); Chloride 109 mmol/L (98-107); Cholesterol 114 mg/dL (200); Creatinine, Serum 1.37 mg/dL (0.70-1.30); EST Glomerular Filtration Rate 54 mL/min (>60); Est Glom Filt Rate - Afr Amer 65 mL/min (>60); Globulin 3.8 g/dL (2.2-4.2); Glucose 98 mg/dL (74-106); High Density Lipoprotein 44 mg/dL; Magnesium 2.2 mg/dL (1.6-2.6); Potassium 4.3 mmol/L (3.5-5.1); Protein, Total 7.5 g/dL (6.4-8.2); Sodium Level 140 mmol/L (136-145); Triglycerides 154 mg/dL; Very Low Density Lipoprotein 31 mg/dL (5-40)
== END | disposition home or self-care (01) ==
LOC: MFPLAB 15:38
PROVIDERS: PCP Family Medicine; Visit Provider Family Medicine
DX: I12.9 Hypertensive chronic kidney disease with stage 1 through stage 4 chronic kidney disease, or unspecified chronic kidney disease (principal); N18.30 Chronic kidney disease, stage 3 unspecified; E21.3 Hyperparathyroidism, unspecified
CPT/HCPCS: 36415; 80053; 80061; 81001; 82570; 83735; 83970; 84100; 84156; 85025

== ENCOUNTER 2024-02-01 15:30 | Outpatient (RCR) | payer MEDICARE, SELFPAY ==
--- NOTE | 2023-12-28 14:36 | HP.PTEVAL ---
Patient's Visit Information Visit Information Visit Information: CHARIS WHITFIELD is a 78 year old M referred to Physical Therapy by Dr. Delgado Murillo MD with a diagnosis of RIGHT GRADE 2 ANKLE SPRAIN. Date of Evaluation: 12/28/23 Physical Therapist: Charis Ragland, PT, Cert MDT, OCS Visit Plan Frequency: 2x /Week Duration: 4 Weeks Plan: NO BOSU BALL PT INTERVENTIONS FLEXABILITY G-S, STRENGTHENING EX'S ANKLE STABILIZERS ,PROPRIOCEPTION ,FUNCTIONAL STRENGTHENING AND MODALITIES PRN Subjective Subjective: This 78 y/o male presents to physical therapy with right ankle sprain. 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 Patient has h/o chronic right ankle sprain . Patient has multiple ankle sprains 4 times past ~ 2 years. Patient has h.o fx ankle. Patient seen Family x-rays -. Patient no medication. Patient has old ankle brace. Patient pain located lateral ankle and calf.Described as generalized ache. Aggravating factors extended walking/standing . Alleviating factors rest. C/O paresthesia/tingling. Patient symptoms affects condition affects QOL and /function and chronic sprains. Patient goals to decrease ankle sprain. SOCIAL: VOCATION: Pain Right Ankle: Pain Intensity (Out of 10): 4 Pain Intensity Range: 10 Objective Objective: POSTURE: slight pes planus GAIT: reciprocal pattern EDEMA: joint line 56.2 cm trimalleolar joint line AROM: dorsiflexion 5 degrees ,plantarflexion 65 degrees , eversion 5 degrees ,inversion 40 degrees MMT: ( peak force) anterior tibialis 18.2 ,peroneus 9.1 ,posterior tibialis 13.1 ,G-S 23.3 PROPRIOCEPTION: poor right unable without support LIGAMENT stability: loose 2+ ANTERIOR DRAWER: 2+ Balance/Special Test Scores Lower Extremity Functional Score: 33 Goals Goal 1:: Patient to be I with ankle with HEP Goal Time Frame: 4-6 Weeks Goal 2:: Patient to improve peak force ankle stabilizers by 5-10 # to improve gait Goal Time Frame: 4-6 Weeks Goal 3:: Patient be able to stand SLS by 30 sec unsupported to improve stability Goal Time Frame: 4-6 Weeks Goal 4:: Patient to improve LFES score by 5 points to improve QOL and function Goal Time Frame: 4-6 Weeks Goal 5:: Patient to demonstrate 50% improvement with less pain and improved function Goal Time Frame: 4-6 Weeks Rehabilitation Potential Physical Therapy Diagnosis: This patient has right ankle sprain with loose ligaments with chronic ankle sprains with weakness and poor proprioception thus benefit from skilled PT Rehabilitation Potential: Good Anticipated Interventions Patient/Client Instruction: Educate patient on: Condition and Plan of Care For the Purpose of:: To decrease pain, To increase ROM, To improve muscle performance and motor function, To improve ability to perform ADL's, To increase tolerance to activity/condition/position, To improve ability of physical actions for home/community/work/leisure, To improve gait and locomotor functions, To improve health of tissue, To decrease soft tissue restriction, To increase flexibility/ROM, To improve endurance and To improve balance Therapeutic Exercise to Include: Strength training, Endurance training, Balance training, Flexibilty training and Active ROM Comment: ANKLE For the Purpose of:: To decrease pain, To increase ROM, To improve muscle performance and motor function, To improve ability to perform ADL's, To increase tolerance to activity/condition/position, To improve ability of physical actions for home/community/work/leisure, To improve health of tissue, To decrease soft tissue restriction and To increase flexibility/ROM TENS: Yes IF ES: Yes Cryotherapy (ice pack, ice massage): Yes Thermo therapy (hot pack): Yes Ultrasound (thermal/non thermal): Yes For the Purpose of:: To decrease pain, To improve nutrient delivery to tissue, To increase oxygenation perfusion, To improve health of tissue and To decrease soft tissue restriction Text: Thank you for the opportunity to evaluate your patient. For Medicare and Medicare HMO plans, please review the plan of care and approve it. It will need to be FAXED BACK to us at [phone] for Medicare purposes. For Medicare only, by signing this I certify the plan of care. Please let me know if there are questions or concerns regarding this plan of care. Physician Signature: Date:
--- NOTE | 2024-02-01 16:01 | HP.PTDCSUM ---
Discharge Summary D/C summary: It has been my pleasure to treat CHARIS WHITFIELD referred by Dr. Delgado Murillo MD, with the diagnosis of RIGHT GRADE 2 ANKLE SPRAIN for a total of 8 visit(s). Discharge Date: 02/01/24 Please see the following information for a summary of their discharge status. Subjective Subjective: Doing great no pain . Pain Right Ankle: Pain Intensity (Out of 10): 0 Overall Improvement % Improvement: 90 Objective Objective/Function: POSTURE: slight pes planus GAIT: reciprocal pattern EDEMA: joint line 56.2 cm trimalleolar joint line AROM: dorsiflexion 5 degrees ,plantarflexion 65 degrees , eversion 5 degrees ,inversion 40 degrees MMT: ( peak force) anterior tibialis 28.2 ,peroneus 15.1 ,posterior tibialis 21.8 ,G-S 23.3 PROPRIOCEPTION: 10-15 seconds LIGAMENT stability: loose 2+ ANTERIOR DRAWER: 2+ Goals Goal 1:: Patient to be I with ankle with HEP Goal Progress: Goal Met Goal 2:: Patient to improve peak force ankle stabilizers by 5-10 # to improve gait Goal 3:: Patient be able to stand SLS by 30 sec unsupported to improve stability Goal Progress: Goal Met Goal 4:: Patient to improve LFES score by 5 points to improve QOL and function Goal 5:: Patient to demonstrate 50% improvement with less pain and improved function Goal Progress: Goal Met Plan Plan: D/C D/C Information Discharge Comments: HEP d/c sentence: If there are questions or concerns regarding this patient's physical therapy, please feel free to call me at [phone]. Thank you for the referral of this patient. Sincerely, Charis Ragland, PT, Cert MDT, OCS Balance/Gait/Functional tests Balance/Special Test Scores Lower Extremity Functional Score: 59 Improvement % Improvement: 90
== END 2024-02-01 19:00 | disposition home or self-care (01) ==
LOC: PT 15:30
PROVIDERS: PCP Family Medicine; Referring Provider Family Medicine; Visit Provider Family Medicine
DX: S93.401D Sprain of unspecified ligament of right ankle, subsequent encounter (principal)
CPT/HCPCS: 97110; 97162; 97530

== ENCOUNTER → 2024-04-10 | Outpatient (CLI) | payer MEDICARE, SELFPAY ==
[2024-04-10 12:24] LABS: Protein:Creat Ratio 585 mg/g CRE (0-200)
[2024-04-10 12:27] LABS: Vitamin D,25 Hydroxy 85.2 ng/mL
[2024-04-10 12:42] LABS: AST(SGOT) 15 U/L (15-37); Alanine Aminotransfer ALT/SGPT 18 U/L (16-61); Albumin, Serum 3.6 g/dL (3.2-5.0); Alkaline Phosphatase 83 U/L (45-117); Anion Gap 7 (5-15); BUN 21 mg/dL (7-18); BUN/Creat Ratio 15.9 RATIO (10-20); Chloride 108 mmol/L (98-107); Cholesterol 118 mg/dL (200); Creatinine, Serum 1.32 mg/dL (0.70-1.30); EST Glomerular Filtration Rate 56 mL/min (>60); Est Glom Filt Rate - Afr Amer 68 mL/min (>60); Globulin 3.6 g/dL (2.2-4.2); Glucose 99 mg/dL (74-106); High Density Lipoprotein 44 mg/dL; Potassium 3.7 mmol/L (3.5-5.1); Protein, Total 7.2 g/dL (6.4-8.2); Sodium Level 141 mmol/L (136-145); Triglycerides 119 mg/dL; Very Low Density Lipoprotein 24 mg/dL (5-40)
[2024-04-10 12:49] LABS: Absolute Lymphocyte Count 1.72 X10^3/uL (0.83-4.51); Absolute Neutrophil Count 3.1 X10^3/uL (2.0-7.7); Basophil# 0.02 X10^3/uL; Basophil% 0.4 % (0-1); Eosinophil# 0.19 X10^3/uL; Eosinophils% 3.4 % (0-5); Hematocrit 44.5 % (40-54); Hemoglobin 14.8 g/dL (13.0-16.5); Lymphocyte # 1.72 X10^3/ul (0.83-4.51); Lymphocyte % 31.2 % (19-41); Mean Corp Hgb Conc 33.3 g/dL (32-36); Mean Corpuscular Hgb 29.7 pg (27.0-32.0); Mean Corpuscular Volume 89.4 fL (80-94); Mean Platelet Vol. 9.7 fl (6.2-12.0); Monocyte# 0.46 X10^3/uL; Monocyte% 8.3 % (0-10); NRBC Flagged by Analyzer 0 % (0-5); Neutrophil # 3.11 X10^3/uL (2.7-7.7); Neutrophil % 56.5 % (47-70); Platelet Count 176 K/mm3 (150-450); RBC Distribution Width CV 12.8 % (11.6-14.6); Red Blood Count 4.98 M/mm3 (4.6-6.2); White Blood Count 5.5 K/mm3 (4.4-11.0)
[2024-04-10 12:50] LABS: PTHIN 105.7 pg/mL (18.4-80.1)
== END | disposition home or self-care (01) ==
LOC: MFPLAB 09:26
PROVIDERS: PCP Family Medicine; Referring Provider Family Medicine; Visit Provider Family Medicine
DX: I12.9 Hypertensive chronic kidney disease with stage 1 through stage 4 chronic kidney disease, or unspecified chronic kidney disease (principal); N18.30 Chronic kidney disease, stage 3 unspecified; E78.00 Pure hypercholesterolemia, unspecified; E55.9 Vitamin D deficiency, unspecified; E21.3 Hyperparathyroidism, unspecified
CPT/HCPCS: 36415; 80053; 80061; 82306; 82570; 83970; 84156; 85025

== ENCOUNTER → 2024-08-08 | Outpatient (CLI) | payer MEDICARE, SELFPAY ==
--- NOTE | 2024-08-08 15:13 | MRI_ITS ---
PROCEDURE: BRAIN W/WO CONTRAST 08/08/2024 REASON FOR EXAM: ATAXIA, UNSPECIFIED TECHNIQUE: Routine brain MRI without and with intravenous contrast. Multiplanar and multisequence images were obtained. CONTRAST: 19 cc Clariscan IV FINDINGS: No evidence of acute infarct or mass effect. The ventricles are within limits and midline. No evidence of intracranial hemorrhage. Mild convexity volume loss, atrophy. A few bilateral scattered supratentorial white matter foci of T2 prolongation statistically would represent chronic small-vessel ischemic change, nonspecific. The major intracranial flow voids appear within limits. The pituitary and optic chiasm appear within limits. Basal cisterns appear within limits. The right and left hippocampus and temporal horns appear symmetric. The right and left internal auditory canals appear within limits without evidence of mass or abnormal enhancement. Right and left Meckel's cave appears within limits. No abnormal enhancement identified. MRI/Brain W/WO Contrast IMPRESSION: Age commensurate chronic and involutional appearing changes. Reading Location: [id number]
== END | disposition home or self-care (01) ==
PROVIDERS: PCP Family Medicine; Referring Provider Otolaryngology; Visit Provider Otolaryngology
DX: R27.0 Ataxia, unspecified (principal)
CPT/HCPCS: 70553; A9575

== ENCOUNTER → 2024-09-23 | Outpatient (CLI) | payer MEDICARE, SELFPAY ==
--- NOTE | 2024-09-23 11:29 | US_ITS ---
EXAM: US Soft Tissues Head and Neck, Thyroid CLINICAL INDICATION: NONTOXIC MULTINODULAR GOITER TECHNIQUE: Real-time ultrasound scan of the thyroid gland and soft tissues of the neck with image documentation. COMPARISON: US Thyroid dated 08/07/2023 FINDINGS: LEFT THYROID LOBE: Left thyroid lobe measures 5.0 x 1.4 x 1.4 cm. Left thyroid nodule measures 0.4 x 0.4 x 0.3 cm and 0.5 by 0.4 x 0.4 cm, which is mixed cystic and solid and hypoechoic, TR 3. Left thyroid nodule of the inferior aspect measures 0.4 x 0.4 x 0.3 cm, which is solid and isoechoic, TR 3. RIGHT THYROID LOBE: Right thyroid lobe measures 4.2 x 2.0 x 1.9 cm. Right thyroid nodule measures 1.4 x 1.4 x 1.1 cm and 0.5 by 0.5 x 0.3 cm, which is mixed cystic and solid, TR 1. ISTHMUS: Isthmus measures 0.3 cm thick. No enlarged or calcified nodules. LYMPH NODES: Unremarkable. No lymphadenopathy. US/Thyroid IMPRESSION: Thyroid nodules. TR 1: Benign, no FNA; TR 2: No suspicious, no FNA; TR 3: Mildly suspicious, F NA if >/= 2.5 cm or Follow if >/= 1.5 cm; TR 4: Moderately suspicious, FNA if >/= 1.5 cm or Follow if >/= 1 cm; TR 5 Highly colmenares spicious, FNA if >/= 1 cm or Follow if >/= 0.5 cm. Reading Location[facility]
== END | disposition home or self-care (01) ==
PROVIDERS: PCP Family Medicine
DX: E04.2 Nontoxic multinodular goiter (principal)
CPT/HCPCS: 76536

== ENCOUNTER → 2024-09-26 | Outpatient (CLI) | payer MEDICARE, SELFPAY ==
[2024-09-26 12:16] LABS: Mucous, Urine 0 SEEN /hpf (<or=2+); Red Blood Cells-Urine 0 SEEN /hpf (0-5); Squamous Epithelial Cells - UA 0 SEEN /hpf (0-5)
[2024-09-26 15:16] LABS: Color, Urine Yellow (Yellow); Glucose, Dipstick 1000 mg/dl (Normal); Ketone-Dipstick Negative (Negative); Leukocyte Esterase-Dipstick Negative /ul (Negative); Nitrite-Dipstick Negative (Negative); Occult Blood-Urine Negative /ul (Negative); Protein-Dipstick 30 mg/dl (Negative); Specific Gravity, Urine 1.015 (1.002-1.030); Urine Bilirubin Dipstick Negative (Negative)
[2024-09-26 15:18] LABS: Hematocrit 47.1 % (40-54); Hemoglobin 15.4 g/dL (13.0-16.5); Immature Granulocytes Count 0.020 X10^3/uL (0.0-0.0); Mean Corp Hgb Conc 32.7 g/dL (32-36); Mean Corpuscular Volume 89.9 fL (80-94); Mean Platelet Vol. 9.2 fl (6.2-12.0); NRBC Flagged by Analyzer 0 % (0-5); Platelet Count 163 K/mm3 (150-450); RBC Distribution Width CV 13.6 % (11.6-14.6); RBC Distribution Width SD 44.7 fl (35.1-43.9); Red Blood Count 5.24 M/mm3 (4.6-6.2); White Blood Count 5.6 K/mm3 (4.4-11.0)
[2024-09-26 15:59] LABS: Creatinine, Urine (random) 135.00 mg/dL (39.00-259.00); Protein, Urine (Random) 14.3 mg/dL (0.0-12.0); Protein:Creat Ratio 106 mg/g CRE (0-200)
[2024-09-26 16:14] LABS: PTHIN 41 pg/mL (11-61)
[2024-09-26 16:25] LABS: Cholesterol 138 mg/dL (<=200); Low Density Lipoprotein Calc. 63 mg/dL; Magnesium 2.4 mg/dL (1.5-2.2); Triglycerides 164 mg/dL; Very Low Density Lipoprotein 33 mg/dL (5-40); Vitamin D,25 Hydroxy 81.8 ng/mL (30-100); cholesterol:hdl ratio screen 3.28
[2024-09-26 16:31] LABS: AST(SGOT) 23 U/L (<=37); Alanine Aminotransfer ALT/SGPT 16 U/L (<=46); Albumin, Serum 4.2 g/dL (3.4-4.8); Alkaline Phosphatase 88 U/L (40-129); Anion Gap 12 (5-15); BUN 26 mg/dL (4-19); BUN/Creat Ratio 13.8 RATIO (10-20); Calcium,Total 9.4 mg/dL (7.6-11.0); Carbon Dioxide 24.3 mmol/L (21.0-32.0); Chloride 105 mmol/L (98-108); Globulin 2.9 g/dL (2.2-4.2); Glucose 117 mg/dL (70-99); Potassium 4.2 mmol/L (3.3-5.1)
== END | disposition home or self-care (01) ==
LOC: MFPLAB 11:44
PROVIDERS: PCP Family Medicine; Referring Provider Family Medicine; Visit Provider Family Medicine
DX: R73.09 Other abnormal glucose (principal); N18.30 Chronic kidney disease, stage 3 unspecified; I12.9 Hypertensive chronic kidney disease with stage 1 through stage 4 chronic kidney disease, or unspecified chronic kidney disease
CPT/HCPCS: 36415; 80053; 80061; 81001; 82306; 82570; 83036; 83735; 83970; 84156; 85025

== ENCOUNTER → 2024-10-02 | Outpatient (CLI) | payer MEDICARE, SELFPAY ==
[2024-10-02 11:16] LABS: Anion Gap 11 (5-15); BUN 22 mg/dL (4-19); BUN/Creat Ratio 15.0 RATIO (10-20); Calcium,Total 9.1 mg/dL (7.6-11.0); Carbon Dioxide 25.8 mmol/L (21.0-32.0); Chloride 105 mmol/L (98-108); Glucose 97 mg/dL (70-99); Potassium 4.0 mmol/L (3.3-5.1)
== END | disposition home or self-care (01) ==
LOC: MFPLAB 08:47
PROVIDERS: PCP Family Medicine; Referring Provider Family Medicine; Visit Provider Family Medicine
DX: N18.30 Chronic kidney disease, stage 3 unspecified (principal)
CPT/HCPCS: 36415; 80048

== ENCOUNTER → 2024-10-17 | Outpatient (CLI) | payer MEDICARE, SELFPAY ==
[2024-10-17 18:25] LABS: Anion Gap 12 (5-15); BUN 27 mg/dL (4-19); BUN/Creat Ratio 16.1 RATIO (10-20); Calcium,Total 9.0 mg/dL (7.6-11.0); Carbon Dioxide 24.8 mmol/L (21.0-32.0); Chloride 102 mmol/L (98-108); Glucose 91 mg/dL (70-99); Potassium 4.2 mmol/L (3.3-5.1)
== END | disposition home or self-care (01) ==
LOC: MFPLAB 15:02
PROVIDERS: PCP Family Medicine; Visit Provider Family Medicine
DX: N18.30 Chronic kidney disease, stage 3 unspecified (principal); R73.09 Other abnormal glucose
CPT/HCPCS: 36415; 80048; 83036

== ENCOUNTER 2025-01-01 08:27 | Outpatient (CLI) | payer MEDICARE, SELFPAY ==
[2025-01-01 09:34] LABS: Hematocrit 45.0 % (40-54); Hemoglobin 15.3 g/dL (13.0-16.5); Immature Granulocytes Count 0.010 X10^3/uL (0.0-0.0); Mean Corp Hgb Conc 34.0 g/dL (32-36); Mean Corpuscular Volume 89.3 fL (80-94); Mean Platelet Vol. 8.9 fl (6.2-12.0); NRBC Flagged by Analyzer 0 % (0-5); Platelet Count 149 K/mm3 (150-450); RBC Distribution Width CV 13.5 % (11.6-14.6); RBC Distribution Width SD 43.8 fl (35.1-43.9); Red Blood Count 5.04 M/mm3 (4.6-6.2); White Blood Count 5.2 K/mm3 (4.4-11.0)
[2025-01-01 10:13] LABS: PTHIN 66 pg/mL (11-61)
[2025-01-01 10:20] LABS: PSA,Total- Diagnostic 4.62 ng/mL (0.00-4.00)
[2025-01-01 11:25] LABS: AST(SGOT) 21 U/L (<=37); Alanine Aminotransfer ALT/SGPT 16 U/L (<=46); Albumin, Serum 4.2 g/dL (3.4-4.8); Alkaline Phosphatase 81 U/L (40-129); Anion Gap 10 (5-15); BUN 25 mg/dL (4-19); BUN/Creat Ratio 19.8 RATIO (10-20); Calcium,Total 9.0 mg/dL (7.6-11.0); Carbon Dioxide 24.9 mmol/L (21.0-32.0); Chloride 105 mmol/L (98-108); Cholesterol 139 mg/dL (<=200); Globulin 2.8 g/dL (2.2-4.2); Glucose 92 mg/dL (70-99); Low Density Lipoprotein Calc. 56 mg/dL; Magnesium 2.4 mg/dL (1.5-2.2); Potassium 4.1 mmol/L (3.3-5.1); Triglycerides 138 mg/dL; Very Low Density Lipoprotein 28 mg/dL (5-40); Vitamin D,25 Hydroxy 76.1 ng/mL (30-100); cholesterol:hdl ratio screen 2.51
== END 2025-01-01 23:59 | disposition home or self-care (01) ==
LOC: LAB 08:29
PROVIDERS: PCP Family Medicine; Referring Provider Urology; Visit Provider Urology
DX: R97.20 Elevated prostate specific antigen [PSA] (principal); I10 Essential (primary) hypertension
CPT/HCPCS: 36415; 80053; 80061; 82306; 83735; 83970; 84153; 84443; 85025

== ENCOUNTER → 2025-02-18 | Outpatient (CLI) | payer MEDICARE, SELFPAY ==
[2025-02-18 15:10] LABS: Hematocrit 45.2 % (40-54); Hemoglobin 15.3 g/dL (13.0-16.5); Immature Granulocytes Count 0.020 X10^3/uL (0.0-0.0); Mean Corp Hgb Conc 33.8 g/dL (32-36); Mean Corpuscular Volume 90.6 fL (80-94); Mean Platelet Vol. 9.1 fl (6.2-12.0); NRBC Flagged by Analyzer 0 % (0-5); Platelet Count 146 K/mm3 (150-450); RBC Distribution Width CV 13.4 % (11.6-14.6); RBC Distribution Width SD 44.5 fl (35.1-43.9); Red Blood Count 4.99 M/mm3 (4.6-6.2); White Blood Count 4.6 K/mm3 (4.4-11.0)
[2025-02-18 15:59] LABS: AST(SGOT) 22 U/L (<=37); Alanine Aminotransfer ALT/SGPT 17 U/L (<=46); Albumin, Serum 4.2 g/dL (3.4-4.8); Alkaline Phosphatase 75 U/L (40-129); Anion Gap 10 (5-15); BUN 24 mg/dL (4-19); BUN/Creat Ratio 16.9 RATIO (10-20); Calcium,Total 9.3 mg/dL (7.6-11.0); Carbon Dioxide 25.7 mmol/L (21.0-32.0); Chloride 106 mmol/L (98-108); Cholesterol 155 mg/dL (<=200); Globulin 2.9 g/dL (2.2-4.2); Glucose 107 mg/dL (70-99); Low Density Lipoprotein Calc. 76 mg/dL; Magnesium 2.3 mg/dL (1.5-2.2); Potassium 4.1 mmol/L (3.3-5.1); Triglycerides 175 mg/dL; Very Low Density Lipoprotein 35 mg/dL (5-40); Vitamin D,25 Hydroxy 82.8 ng/mL (30-100); cholesterol:hdl ratio screen 3.11
== END | disposition home or self-care (01) ==
LOC: MFPLAB 12:11
PROVIDERS: PCP Family Medicine; Visit Provider Family Medicine
DX: R73.9 Hyperglycemia, unspecified (principal); I10 Essential (primary) hypertension; E78.00 Pure hypercholesterolemia, unspecified
CPT/HCPCS: 36415; 80053; 80061; 82306; 83036; 83735; 85025